=== PATIENT | female | born 1995 | race Caucasian/White ===

== ENCOUNTER 2016-06-06 21:26 | Emergency (ER) | payer OTHER ==
[~2016-06-06] VITALS: Ht 172.7 cm; Wt 128.1 kg
[~2016-06-06 21:26] MED LIST: BUPR100T13 PO; GABA-113 PO; LEVO50TA PO; PRAZ1CAP28 PO; TOPI50TA24 PO; TRAZ100T29 PO
[2016-06-06] MEDS ORDERED: GLC/500 PO (21:33)
[2016-06-06 21:35] VITALS: TEMP 36.4; Ht 172.7 cm; Wt 128.1 kg
[2016-06-06] MEDS ORDERED: CITA20TA4 PO (22:01)
[2016-06-06] MEDS ORDERED: ALBUT/IPRATROP 3MG/0.5MG NEB 3 ML VIAL ONE (22:23)
--- NOTE | 2016-06-06 22:23 | EMERGENCY ROOM VISIT NOTE ---
History Report prepared by Km: Kita Hodges Under the Supervision of: Dr. Leo Vicente M.D. First contact with patient: 21:39 Chief Complaint: RESPIRATORY PROBLEMS Stated Complaint: HAVING PROBLEMS BREATHING, CHEST PAIN History of Present Illness The patient is a 20 year old female who presents to the Emergency Room with complaints of worsening respiratory problems for the past 2 weeks. She notes rhinorrhea, productive cough, and shortness of breath. Initially her dyspnea was worse with exertion, but she states for the past 3 days she has had dyspnea even at rest. Sitting up helps to alleviate her symptoms. Earlier today the patient had a sudden onset of chest pain. She describes it as feeling as though someone is sitting on her chest. She denies this pain radiating into her back. She has never experienced symptoms like this before. She rates her pain as a 10/ 10. The patient denies fever, urinary symptoms, abdominal pain, and leg pain or swelling. She has a personal history of asthma and is a 1 pack a day smoker. She uses an albuterol inhaler daily for her asthma but has been using it more since her symptoms developed. Source of History: patient Onset: 2 weeks ago Position: chest (respiratory) Symptom Intensity: 10/10 Quality: other (dyspnea) Timing: worsening Modifying Factors (Worsening): exertion Modifying Factors (Relieving): other (sitting up) Associated Symptoms: + SOB, + chest pain, + cough, No abdominal pain, No fevers, No urinary symptoms Review of Systems See HPI for pertinent positives & negatives. A total of 10 systems reviewed and were otherwise negative. Past Medical & Surgical Medical Problems: (1) Anxiety State Nos (2) Attn Deficit W Hyperact (3) Diab Lucinda Wo Compl, Type Ii Or Unspec Type, Not Uncntrld (4) Tobacco Use Disorder Surgical Problems: (1) No significant past surgical history Family History Diabetes mellitus Social History Smoking Status: Current Every Day Smoker Alcohol Use: none Drug Use: other Marital Status: in relationship Occupation Status: unemployed Current/Historical Medications Scheduled Bupropion Hcl (Wellbutrin), 100 MG PO QAM Citalopram Hydrobromide (Citalopram Hydrobromide), 20 MG PO QD@1200 Gabapentin (Neurontin), 300 MG PO TID Levothyroxine Sodium (Synthroid), 50 MCG PO DAILY Metformin Hcl (Glucophage), 500 MG PO TID Montelukast Sodium (Singulair), 10 MG PO DAILY Prazosin Hcl (Prazosin), 1 MG PO HS Prednisone (Prednisone Tab), 2 TAB PO DAILY Topiramate (Topamax), 50 MG PO BID Scheduled PRN Albuterol Hfa (Ventolin Hfa), 2 PUFFS INH QID PRN for Asthma Symptoms Fluticasone Propionate (Nasal) (Flonase Allergy Relief), 2 SPRAYS NATALIE DAILY PRN for Allergy Symptoms Loratadine (Allergy Relief), 10 MG PO DAILY PRN for Allergy Symptoms Trazodone Hcl (Trazodone), 100 MG PO HS PRN for Sleep Allergies Coded Allergies: Aspirin (Unverified Allergy, Unknown, HIVES, 05/18/16) BEE STING (Verified Allergy, Unknown, unknown, 05/18/16) [place] (Verified Allergy, Unknown, HIVES, 05/18/16) Lactose (Unverified Allergy, Unknown, ., 05/18/16) Physical Exam Vital Signs Date Time Temp Pulse Resp B/P Pulse Ox O2 Delivery O2 Flow Rate FiO2 06/07/16 00:19 105 18 135/92 98 06/06/16 22:38 96 Room Air 06/06/16 21:35 36.4 114 20 159/91 97 Room Air Physical Exam GENERAL: Patient is in no acute distress. HEENT: No acute trauma, normocephalic atraumatic, mucous membranes moist, no nasal congestion, no scleral icterus. NECK: No stridor, no adenopathy, no meningismus, trachea is midline. LUNGS: Scattered occasional crackles, no wheezing, breath sounds somewhat diminished but equal bilaterally. CHEST: Tender over the midsternum. HEART: Without murmurs gallops or rubs, regular rate and rhythm. ABDOMEN: Soft, nontender, bowel sounds positive, no hernias, no peritonitis. EXTREMITIES: No cyanosis or edema, full range of motion of all the joints without pain or difficulty, no signs for acute trauma. NEUROLOGIC: Oriented x 3, no acute motor or sensory deficits, no focal weakness. SKIN: No rash, no jaundice, no diaphoresis. Medical Decision & Procedures ER Provider Diagnostic Interpretation: Radiology results as stated below per my review and radiologist interpretation: CHEST ONE VIEW PORTABLE CLINICAL HISTORY: 2 week productive cough, dyspnea, chest pain COMPARISON STUDY: Chest radiograph March 04, 2016. FINDINGS: Lung volumes are normal. Lungs are clear. There is no pneumothorax or pleural effusion. Cardiac size is normal. Mediastinal contours are normal. There is no evidence of pulmonary edema. The appearance of the chest is unchanged. IMPRESSION: No acute cardiopulmonary findings. Electronically signed by: Morgan Doyle M.D. 06/06/2016 10:31 PM Dictated Date/Time: 06/06/2016 10:31 PM Laboratory Results 06/06/16 22:22 Red Blood Count 4.59, Mean Corpuscular Volume 85.0, Mean Corpuscular Hemoglobin 29.6, Mean Corpuscular Hemoglobin Concent 34.9, Mean Platelet Volume 9.1, Neutrophils (%) (Auto) 65.3, Lymphocytes (%) (Auto) 28.1, Monocytes (%) (Auto) 3.6, Eosinophils (%) (Auto) 2.3, Basophils (%) (Auto) 0.3, Neutrophils # (Auto) 7.13, Lymphocytes # (Auto) 3.06, Monocytes # (Auto) 0.39, Eosinophils # (Auto) 0.25, Basophils # (Auto) 0.03 06/06/16 22:22 Test 06/06/16 22:22 06/06/16 22:35 White Blood Count 10.90 K/uL (4.8-10.8) Red Blood Count 4.59 M/uL (4.2-5.4) Hemoglobin 13.6 g/dL (12.0-16.0) Hematocrit 39.0 % (37-47) Mean Corpuscular Volume 85.0 fL (80-100) Mean Corpuscular Hemoglobin 29.6 pg (25-34) Mean Corpuscular Hemoglobin Concent 34.9 g/dl (32-36) Platelet Count 320 K/uL (130-400) Mean Platelet Volume 9.1 fL (7.4-10.4) Neutrophils (%) (Auto) 65.3 % Lymphocytes (%) (Auto) 28.1 % Monocytes (%) (Auto) 3.6 % Eosinophils (%) (Auto) 2.3 % Basophils (%) (Auto) 0.3 % Neutrophils # (Auto) 7.13 K/uL (1.4-6.5) Lymphocytes # (Auto) 3.06 K/uL (1.2-3.4) Monocytes # (Auto) 0.39 K/uL (0.11-0.59) Eosinophils # (Auto) 0.25 K/uL (0-0.5) Basophils # (Auto) 0.03 K/uL (0-0.2) RDW Standard Deviation 40.0 fL (36.4-46.3) RDW Coefficient of Variation 12.9 % (11.5-14.5) Immature Granulocyte % (Auto) 0.4 % Immature Granulocyte # (Auto) 0.04 K/uL (0.00-0.02) Anion Gap 10.0 mmol/L (3-11) Est Creatinine Clear Calc Drug Dose 130.0 ml/min Estimated GFR () 97.3 Estimated GFR (Non- 83.9 BUN/Creatinine Ratio 17.6 (10-20) Calcium Level 9.1 mg/dl (8.5-10.1) Total Bilirubin 0.1 mg/dl (0.2-1) Aspartate Amino Transf (AST/SGOT) 13 U/L (15-37) Alanine Aminotransferase (ALT/SGPT) 29 U/L (12-78) Alkaline Phosphatase 116 U/L (45-117) Troponin I < 0.015 ng/ml (0-0.045) Total Protein 7.8 gm/dl (6.4-8.2) Albumin 3.8 gm/dl (3.4-5.0) Globulin 4.0 gm/dl (2.5-4.0) Albumin/Globulin Ratio 1.0 (0.9-2) Influenza Type A Antigen Neg for Influ A (NEG) Influenza Type B Antigen Neg for Influ B (NEG) Laboratory results reviewed by me. Medications Administered Medications (Trade) Dose Ordered Sig/Darnell Route Start Time Stop Time Status Last Admin Dose Admin Albuterol/ Ipratropium (Duoneb) 3 ml STK-MED ONCE .ROUTE 06/06/16 22:23 06/06/16 22:24 DC 06/06/16 22:25 3 ML Acetaminophen (Tylenol Tab) 650 mg STK-MED ONCE .ROUTE 06/06/16 22:48 06/06/16 22:49 DC 06/06/16 22:50 650 MG Ondansetron HCl (Zofran Inj) 4 mg STK-MED ONCE .ROUTE 06/06/16 22:48 06/06/16 22:49 DC 06/06/16 22:48 4 MG Prednisone (PredniSONE TAB) 40 mg STK-MED ONCE .ROUTE 06/07/16 00:10 06/07/16 00:11 DC 06/07/16 00:13 40 MG ECG Indication: chest pain Rate (beats per minute): 99 Rhythm: normal sinus Findings: no acute ischemic change, no ectopy ED Course 2138: The patient was evaluated in room B3B. A complete history and physical exam was performed. 2223: Duoneb 3ml INH 2248: Zofran 4 mg PO, Tylenol tab 650 mg PO 2356: Prednisone 40 mg PO 2357: I reassessed the patient at this time. She is feeling better and resting comfortably. I discussed the results and treatment plan with the patient. I answered all pertaining questions that she had. She expressed understanding and verbalized agreement. The patient will be discharged home. Medical Decision Differential diagnoses includes bronchitis, pneumonia, pneumothorax, musculoskeletal pain, OK, PE, aortic dissection. There is a very mild leukocytosis, this could be consistent with infection or just her pain. No significant electrolyte abnormality requiring correction. There is no renal failure. No hepatitis. No worrisome anemia. EKG shows a normal sinus rhythm, no acute ischemia. Cardiac enzyme testing times one is not suggestive of acute cardiac injury. Chest x-ray shows no mediastinal widening, pneumonia or pneumothorax. Patient received oral Tylenol. She received a DuoNeb, oral prednisone. She received a dose of Zofran. The patient is not toxic or hypoxic. She appears to have an acute bronchitis with an exacerbation of her asthma. Her pain across the chest is reproducible and likely musculoskeletal. She is being discharged on a prednisone burst, frequent albuterol use, rest, heat to the chest wall was suggested. If things are worsening, she can return. Impression Primary Impression: Acute bronchitis Additional Impressions: Exacerbation of asthma, Precordial chest pain Scribe Attestation The scribe's documentation has been prepared under my direction and personally reviewed by me in its entirety. I confirm that the note above accurately reflects all work, treatment, procedures, and medical decision making performed by me. Departure Information Dispostion Home / Self-Care Prescriptions Prednisone (Prednisone Tab) 20 Mg Tab 2 TAB PO DAILY for 4 Days, #8 TAB Prov: Lucho, Sadie., MD 06/07/16 Referrals Tj Draper M.D. (PCP) Forms HOME CARE DOCUMENTATION FORM, IMPORTANT VISIT INFORMATION, WORK / SCHOOL INSTRUCTIONS Patient Instructions A Signature Page, ED Bronchitis Asthmatic Ch, [facility] Additional Instructions You were seen in the ED today for shortness of breath and chest pain. Lab work done was grossly unremarkable. Swabs for influenza were negative. And chest xray was normal. It is likely your symptoms are due to bronchitis. Upon discharge you are prescribed a 5 day course of prednisone 40mg. Please complete this course, even if symptoms improve. Take 2 puffs of your albuterol inhaler every 4 hours, as needed. Apply warm compresses to the chest for relief of muscular pain. A humidifer may also be helpful. We hope that this may provide significant symptom alleviation. However, we recommend follow up with your PCP in 7-10days. If symptoms continue to persist at this time, and antibioitic regimen may be considered. You have been examined and treated today on an emergency basis only. This is not a substitute for, or an effort to provide, complete comprehensive medical care. It is impossible to recognize and treat all injuries or illnesses in a single emergency department visit. It is therefore important that you make a follow up with your physician for close monitoring. Return to the ER immediately for worsening or persistent dizziness, vomiting, headache, fevers, chest pains, difficulty breathing, black or bloody stools, slurred speech, numbness, weakness, visual changes, worsening of your condition , or as needed.
[2016-06-06 22:32] LABS: BASO % 0.3 %; BASO ABS # 0.03 K/uL (0-0.2); COMPLETE YES; EOS % 2.3 %; IG% 0.4 %; LYMPH % 28.1 %; LYMPH ABS # 3.06 K/uL (1.2-3.4); MEAN CORPUSCULAR HEMOGLOBIN 29.6 pg (25-34); MEAN CORPUSCULAR HGB CONC 34.9 g/dl (32-36); MEAN PLATELET VOLUME 9.1 fL (7.4-10.4); MONO % 3.6 %; NEUT % 65.3 %; PLATELET COUNT 320 K/uL (130-400); RED BLOOD COUNT 4.59 M/uL (4.2-5.4)
--- NOTE | 2016-06-06 22:33 | DIAGNOSTIC IMAGING REPORT ---
CHEST ONE VIEW PORTABLE CLINICAL HISTORY: 2 week productive cough, dyspnea, chest pain COMPARISON STUDY: Chest radiograph March 04, 2016. FINDINGS: Lung volumes are normal. Lungs are clear. There is no pneumothorax or pleural effusion. Cardiac size is normal. Mediastinal contours are normal. There is no evidence of pulmonary edema. The appearance of the chest is unchanged. IMPRESSION: No acute cardiopulmonary findings. Electronically signed by: Morgan Doyle M.D. 06/06/2016 10:31 PM Dictated Date/Time: 06/06/2016 10:31 PM
[2016-06-06] MEDS ORDERED: VNTHFA/IN INH (22:36)
[2016-06-06] MEDS ORDERED: FLUT0.15 NAE (22:37)
--- NOTE | 2016-06-06 22:37 | EMERGENCY ROOM VISIT NOTE ---
History First contact with patient: 21:39 Chief Complaint: RESPIRATORY PROBLEMS Stated Complaint: HAVING PROBLEMS BREATHING, CHEST PAIN History of Present Illness The patient is a 20 year old female who presents to the Emergency Room with complaints of new onset chest pain Patient has had rhinorrhea, cough productive of green sputum (occasionally blood -speckled after coughing) and diarrhea without blood x two weeks duration. As of Thursday, patient has begun to feel progressively worsening dyspnea, even at rest. Exacerbated by walking. Patient also describes PND and orthopnea requiring the use of three pillows, which started a few nights ago. As of this evening, patient has begun to experience central chest pain, that feels like someone is sitting on her chest. Pain commenced while outside smoking. The pain is intermittent, but currently present. She denies radiation to the neck, jaw, or arm. Not pleuritic in nature. Symptoms alleviated by sitting up. Associated with nausea but not diaphoresis. No medications taken for relief. Patient denies previous similar episodes. No fevers Had an episode of emesis earlier today, prior to chest pain starting. but no abdominal pain. Denies UTI symptoms History of asthma - regular use of inhaler PRN Smoker - Smokes 1 pack a day No personal/family history of cardiac. ?mom has something on her heart Review of Systems See HPI for pertinent positives and negatives. A total of ten systems were reviewed and were otherwise negative. Past Medical/Surgical History Medical Problems: (1) Anxiety State Nos (2) Attn Deficit W Hyperact (3) Diab Lucinda Wo Compl, Type Ii Or Unspec Type, Not Uncntrld (4) Tobacco Use Disorder Surgical Problems: (1) No significant past surgical history Family History Diabetes mellitus Social History Smoking Status: Current Every Day Smoker Alcohol Use: none Drug Use: other Marital Status: in relationship Occupation Status: unemployed Current/Historical Medications Scheduled Bupropion Hcl (Wellbutrin), 100 MG PO QAM Citalopram Hydrobromide (Citalopram Hydrobromide), 20 MG PO QD@1200 Gabapentin (Neurontin), 300 MG PO TID Levothyroxine Sodium (Synthroid), 50 MCG PO DAILY Metformin Hcl (Glucophage), 500 MG PO TID Montelukast Sodium (Singulair), 10 MG PO DAILY Prazosin Hcl (Prazosin), 1 MG PO HS Prednisone (Prednisone Tab), 2 TAB PO DAILY Topiramate (Topamax), 50 MG PO BID Scheduled PRN Albuterol Hfa (Ventolin Hfa), 2 PUFFS INH QID PRN for Asthma Symptoms Fluticasone Propionate (Nasal) (Flonase Allergy Relief), 2 SPRAYS NATALIE DAILY PRN for Allergy Symptoms Loratadine (Allergy Relief), 10 MG PO DAILY PRN for Allergy Symptoms Trazodone Hcl (Trazodone), 100 MG PO HS PRN for Sleep Allergies Coded Allergies: Aspirin (Unverified Allergy, Unknown, HIVES, 05/18/16) BEE STING (Verified Allergy, Unknown, unknown, 05/18/16) [place] (Verified Allergy, Unknown, HIVES, 05/18/16) Lactose (Unverified Allergy, Unknown, ., 05/18/16) Physical Exam Vital Signs Date Time Temp Pulse Resp B/P Pulse Ox O2 Delivery O2 Flow Rate FiO2 06/06/16 22:38 96 Room Air 06/06/16 21:35 36.4 114 20 159/91 97 Room Air Physical Exam GENERAL: alert, well nourished, sitting in bed, mild distress, non-toxic HEAD: Normocephalic, atraumatic. No sinus tenderness. EYES: PERRL, EOMI, normal conjunctiva OROPHARYNX: no exudate, no erythema, lips, buccal mucosa, and tongue normal and mucous membranes are dry NECK: supple, no nuchal rigidity, right cervical lymph node palpable, non-tender LUNGS: Clear to auscultation. Normal chest wall mechanics, decreased bibasilar air entry. No crepitations, crackles, or wheezes HEART: no murmurs, S1 normal and S2 normal CHEST: Reproducible tenderness on palpation of sternum. Not reproduced with movement of left shoulder. ABDOMEN: abdomen soft, non-tender, normo-active bowel sounds, no masses, no rebound or guarding. BACK: Back is symmetrical on inspection, no deformities, no midline tenderness, no CVA tenderness. SKIN: Warm, pink, dry. No erythema, rashes, or bruising. EXTREMITIES: Grossly normal. Moving all 4 limbs, strength 5/5. No pitting edema. Calves non tender. NEURO: Alert, Ox3. No focal deficits. Normal sensorium, cranial nerves II-XII grossly intact, normal speech. PSYCH: Mood and affect appropriate. Medical Decision & Procedures ER Provider Diagnostic Interpretation: CHEST ONE VIEW PORTABLE CLINICAL HISTORY: 2 week productive cough, dyspnea, chest pain COMPARISON STUDY: Chest radiograph March 04, 2016. FINDINGS: Lung volumes are normal. Lungs are clear. There is no pneumothorax or pleural effusion. Cardiac size is normal. Mediastinal contours are normal. There is no evidence of pulmonary edema. The appearance of the chest is unchanged. IMPRESSION: No acute cardiopulmonary findings. Laboratory Results 06/06/16 22:22 Red Blood Count 4.59, Mean Corpuscular Volume 85.0, Mean Corpuscular Hemoglobin 29.6, Mean Corpuscular Hemoglobin Concent 34.9, Mean Platelet Volume 9.1, Neutrophils (%) (Auto) 65.3, Lymphocytes (%) (Auto) 28.1, Monocytes (%) (Auto) 3.6, Eosinophils (%) (Auto) 2.3, Basophils (%) (Auto) 0.3, Neutrophils # (Auto) 7.13, Lymphocytes # (Auto) 3.06, Monocytes # (Auto) 0.39, Eosinophils # (Auto) 0.25, Basophils # (Auto) 0.03 06/06/16 22:22 Test 06/06/16 22:22 06/06/16 22:35 White Blood Count 10.90 K/uL (4.8-10.8) Red Blood Count 4.59 M/uL (4.2-5.4) Hemoglobin 13.6 g/dL (12.0-16.0) Hematocrit 39.0 % (37-47) Mean Corpuscular Volume 85.0 fL (80-100) Mean Corpuscular Hemoglobin 29.6 pg (25-34) Mean Corpuscular Hemoglobin Concent 34.9 g/dl (32-36) Platelet Count 320 K/uL (130-400) Mean Platelet Volume 9.1 fL (7.4-10.4) Neutrophils (%) (Auto) 65.3 % Lymphocytes (%) (Auto) 28.1 % Monocytes (%) (Auto) 3.6 % Eosinophils (%) (Auto) 2.3 % Basophils (%) (Auto) 0.3 % Neutrophils # (Auto) 7.13 K/uL (1.4-6.5) Lymphocytes # (Auto) 3.06 K/uL (1.2-3.4) Monocytes # (Auto) 0.39 K/uL (0.11-0.59) Eosinophils # (Auto) 0.25 K/uL (0-0.5) Basophils # (Auto) 0.03 K/uL (0-0.2) RDW Standard Deviation 40.0 fL (36.4-46.3) RDW Coefficient of Variation 12.9 % (11.5-14.5) Immature Granulocyte % (Auto) 0.4 % Immature Granulocyte # (Auto) 0.04 K/uL (0.00-0.02) Anion Gap 10.0 mmol/L (3-11) Est Creatinine Clear Calc Drug Dose 130.0 ml/min Estimated GFR () 97.3 Estimated GFR (Non- 83.9 BUN/Creatinine Ratio 17.6 (10-20) Calcium Level 9.1 mg/dl (8.5-10.1) Total Bilirubin 0.1 mg/dl (0.2-1) Aspartate Amino Transf (AST/SGOT) 13 U/L (15-37) Alanine Aminotransferase (ALT/SGPT) 29 U/L (12-78) Alkaline Phosphatase 116 U/L (45-117) Troponin I < 0.015 ng/ml (0-0.045) Total Protein 7.8 gm/dl (6.4-8.2) Albumin 3.8 gm/dl (3.4-5.0) Globulin 4.0 gm/dl (2.5-4.0) Albumin/Globulin Ratio 1.0 (0.9-2) Influenza Type A Antigen Neg for Influ A (NEG) Influenza Type B Antigen Neg for Influ B (NEG) Medications Administered Medications (Trade) Dose Ordered Sig/Darnell Route Start Time Stop Time Status Last Admin Dose Admin Albuterol/ Ipratropium (Duoneb) 3 ml STK-MED ONCE .ROUTE 06/06/16 22:23 06/06/16 22:24 DC 06/06/16 22:25 3 ML Acetaminophen (Tylenol Tab) 650 mg STK-MED ONCE .ROUTE 06/06/16 22:48 06/06/16 22:49 DC 06/06/16 22:50 650 MG Ondansetron HCl (Zofran Inj) 4 mg STK-MED ONCE .ROUTE 06/06/16 22:48 06/06/16 22:49 DC 06/06/16 22:48 4 MG ECG Indication: chest pain, SOB/dyspnea Rate (beats per minute): 99 Rhythm: normal sinus Findings: no acute ischemic change, no ectopy, other (RSR pattern in V1 and V2) Medical Decision 20 year old female presented with chest pain, dyspnea The patient was evaluated in room B3. A complete history and physical exam was performed. Differential diagnoses includes but is not limited to acute coronary syndrome, myocardial infarction, pericarditis, pulmonary embolus, aortic dissection, pneumonia, pneumothorax, musculoskeletal, shingles, esophageal, bronchitis, COPD /Asthma exacerbation, congestive heart failure Patient was given 650mg PO Tylenol and 4mg IV Zofran for symptom relief. Additionally, Duo Nebs were given to improve respiratory status. EKG showed NSR without ischemic changes Lab work was performed. CBC showed borderline leukocytosis, BMP, LFT, and troponin were all within normal limits. Nasopharyngeal swabs were negative for influenza. CXR reported no acute cardiopulmonary findings. Likely diagnosis is bronchitis with musculoskeletal chest pain secondary to coughing. As such, patient prescribed a 5 day course of 40mg PO prednisone and advised for conservative management with warm compress to the chest and room humidifier. She was also told to continue her albuterol inhaler 2 puffs q 4 hours as needed, technique was reinforced. Finally, it was recommended that she follow up with her PCP in 7-10 days, and if symptoms persisted, an antibiotics regimen might be considered at that time. Patient understands and agreeable with care plan. Patient discharged home well. Impression Primary Impression: Bronchitis Additional Impression: Musculoskeletal chest pain Departure Information Dispostion Home / Self-Care Condition GOOD Prescriptions Prednisone (Prednisone Tab) 20 Mg Tab 2 TAB PO DAILY for 4 Days, #8 TAB Prov: Alka. Yepez MD 06/07/16 Referrals Tj Draper M.D. (PCP) Patient Instructions A Signature Page, [facility] Additional Instructions You were seen in the ED today for shortness of breath and chest pain. Lab work done was grossly unremarkable. Swabs for influenza were negative. And chest xray was normal. It is likely your symptoms are due to bronchitis. Upon discharge you are prescribed a 5 day course of prednisone 40mg. Please complete this course, even if symptoms improve. Take 2 puffs of your albuterol inhaler every 4 hours, as needed. Apply warm compresses to the chest for relief of muscular pain. A humidifer may also be helpful. We hope that this may provide significant symptom alleviation. However, we recommend follow up with your PCP in 7-10days. If symptoms continue to persist at this time, and antibioitic regimen may be considered. You have been examined and treated today on an emergency basis only. This is not a substitute for, or an effort to provide, complete comprehensive medical care. It is impossible to recognize and treat all injuries or illnesses in a single emergency department visit. It is therefore important that you make a follow up with your physician for close monitoring. Return to the ER immediately for worsening or persistent dizziness, vomiting, headache, fevers, chest pains, difficulty breathing, black or bloody stools, slurred speech, numbness, weakness, visual changes, worsening of your condition , or as needed.
[2016-06-06] MEDS ORDERED: MONT1TAB3 PO (22:38)
[2016-06-06] MEDS ORDERED: LORA-554 PO (22:39)
[2016-06-06] MEDS ORDERED: ACETAMINOPHEN 325 MG TAB PO STA (22:43)
[2016-06-06] MEDS ORDERED: ONDANSETRON INJ 2 MG/ML 2 ML VIAL IV STA (22:43)
[2016-06-06] MEDS ORDERED: ACETAMINOPHEN 325 MG TAB ONE (22:48)
[2016-06-06] MEDS ORDERED: ONDANSETRON INJ 2 MG/ML 2 ML VIAL ONE (22:48)
[2016-06-06 22:53] LABS: ALT/SGPT 29 U/L (12-78); AST/SGOT 13 U/L (15-37); BLOOD UREA NITROGEN 17 mg/dl (7-18); BUN/CREATININE RATIO 17.6 (10-20); CALCIUM 9.1 mg/dl (8.5-10.1); CARBON DIOXIDE 23 mmol/L (21-32); CHLORIDE 108 mmol/L (98-107); CREATININE 0.96 mg/dl (0.60-1.20); GLUCOSE 110 mg/dl (70-99); POTASSIUM 3.9 mmol/L (3.5-5.1); SODIUM 141 mmol/L (136-145)
[2016-06-06 22:57] LABS: ALKALINE PHOSPHATASE 116 U/L (45-117)
[2016-06-07] MEDS ORDERED: PRED20TA2 PO (00:07)
[2016-06-07 00:19] VITALS: BP 135/92; PULSE 105; O2SAT 98
[2016-06-07] MEDS ORDERED: ALBUT/IPRATROP 3MG/0.5MG NEB 3 ML VIAL INH SCH (08:00)
== END 2016-06-07 00:22 | disposition home or self-care (01) ==
LOC: C.EDB 21:33
DX: J20.9 Acute bronchitis, unspecified (principal); R07.89 Other chest pain; J45.901 Unspecified asthma with (acute) exacerbation; F41.9 Anxiety disorder, unspecified; E11.9 Type 2 diabetes mellitus without complications; F17.200 Nicotine dependence, unspecified, uncomplicated; Z83.3 Family history of diabetes mellitus

== ENCOUNTER 2016-06-20 17:49 | Emergency (ER) | payer OTHER ==
[~2016-06-20] VITALS: Ht 172.7 cm; Wt 124.4 kg
[~2016-06-20 17:49] MED LIST changes: +CITA20TA4 PO; +FLUT0.15 NAE; +GLC/500 PO; +LORA-554 PO; +MONT1TAB3 PO; +VNTHFA/IN INH
[2016-06-20 18:04] VITALS: TEMP 36.6; Ht 172.7 cm; Wt 124.4 kg
--- NOTE | 2016-06-20 18:38 | EMERGENCY ROOM VISIT NOTE ---
ED Visit Note First contact with patient: 18:08 CHIEF COMPLAINT: Foot pain HISTORY OF PRESENT ILLNESS: This 20 year old female patient presents to the emergency department ambulatory complaining of swelling and pain in the left foot at rest and worse with weight bearing. The patient rates the pain as sharp and 10/10. The patient has no relief of the pain. The patient is non-able to walk. No numbness or weakness. No ankle pain. There are no lacerations of the foot. The patient is able to move all of their toes and their ankle without pain. Patient denies previous injury to this foot. REVIEW OF SYSTEMS: GENERAL: A 6 system review of systems was completed with positives and pertinent negatives in the HPI. ALLERGIES: Aspirin, bee stings, citrus, lactose MEDICATIONS: See nursing notes PMH: Diabetes, hypothyroidism, bipolar SOCIAL HISTORY: The patient lives locally and is a smoker PHYSICAL EXAM: Vital Signs: Reviewed Nurse's notes, vital signs stable. GENERAL : This is a 20 year old female, in no acute distress, but appears in pain, well- developed, well-nourished. MUSCULOSKELETAL: There is no visual deformity of the left foot. There is no erythema and mild ecchymosis. There is no warmth. There is tenderness and swelling over the lateral aspect of the left foot. The range of motion of the foot is mildly limited secondary to pain. There is no tenderness over the plantar fascia. Dorsi flexion 5/5 and Plantar flexion 5/5. The skin is intact and there are no lacerations or puncture wounds. Dorsalis pedis pulse 2+. Capillary refill less than 2 seconds. EMERGENCY DEPARTMENT COURSE: I examined the patient. An X-ray of the left ankle and foot were reviewed by myself and radiology and reveals no fracture dislocation. The patient was placed in a post-op shoe and instructed on the use of crutches. The patient was discharged home in good condition. DIAGNOSIS: Foot pain TREATMENT: Ice and elevation for 24-48 hrs. Tylenol 1000 mg every 6 hours for the pain. No more than 4 g of Tylenol in 24 hours. Avoid weight bearing and use crutches and post-op shoe until the pain subsides and you can walk without a limp. Follow up with family doctor or orthopedic surgeon if symptoms persist in 5-7 days. LEFT ANKLE MIN 3 VIEWS ROUTINE CLINICAL HISTORY: Left ankle pain status post trauma COMPARISON: None. DISCUSSION: No fractures or dislocations are visualized. The ankle mortise appears intact. IMPRESSION: No fractures or dislocations identified. LEFT FOOT MIN 3 VIEWS ROUTINE CLINICAL HISTORY: Left foot pain status post trauma COMPARISON: None. DISCUSSION: No fractures or dislocations are visualized. There is a small corticated ossicle at the level of the navicular as visualized in the lateral view. This is felt to be old. IMPRESSION: No fractures or dislocations identified. Problem List Surgical Problems: (1) No significant past surgical history Status: Resolved Current/Historical Medications Scheduled Bupropion Hcl (Wellbutrin), 100 MG PO QAM Citalopram Hydrobromide (Citalopram Hydrobromide), 20 MG PO QD@1200 Gabapentin (Neurontin), 300 MG PO TID Levothyroxine Sodium (Synthroid), 50 MCG PO DAILY Metformin Hcl (Glucophage), 500 MG PO TID Montelukast Sodium (Singulair), 10 MG PO DAILY Prazosin Hcl (Prazosin), 1 MG PO HS Topiramate (Topamax), 50 MG PO BID Scheduled PRN Albuterol Hfa (Ventolin Hfa), 2 PUFFS INH QID PRN for Asthma Symptoms Fluticasone Propionate (Nasal) (Flonase Allergy Relief), 2 SPRAYS NATALIE DAILY PRN for Allergy Symptoms Loratadine (Allergy Relief), 10 MG PO DAILY PRN for Allergy Symptoms Trazodone Hcl (Trazodone), 100 MG PO HS PRN for Sleep Allergies Coded Allergies: Aspirin (Unverified Allergy, Unknown, HIVES, 06/20/16) BEE STING (Verified Allergy, Unknown, unknown, 06/20/16) [place] (Verified Allergy, Unknown, HIVES, 06/20/16) Lactose (Unverified Allergy, Unknown, ., 06/20/16) Vital Signs Date Time Temp Pulse Resp B/P Pulse Ox O2 Delivery O2 Flow Rate FiO2 06/20/16 19:16 101 20 149/93 96 06/20/16 18:04 36.6 104 20 146/101 98 Room Air Medications Administered Medications (Trade) Dose Ordered Sig/Darnell Route Start Time Stop Time Status Last Admin Dose Admin Acetaminophen (Tylenol Tab) 1,000 mg NOW STAT PO 06/20/16 18:51 06/20/16 18:52 DC 06/20/16 18:51 1,000 MG Departure Information Impression Primary Impression: Foot sprain Dispostion Home / Self-Care Condition GOOD Referrals Tj Draper M.D. (PCP) Ashok Junior MD Patient Instructions ED Sprain Foot, My [facility] Additional Instructions Ice and elevation for 24-48 hrs. Tylenol 1000 mg every 6 hours for the pain. No more than 4 g of Tylenol in 24 hours. Avoid weight bearing and use crutches and post-op shoe until the pain subsides and you can walk without a limp. Follow up with family doctor or orthopedic surgeon if symptoms persist in 5-7 days. Problem Qualifiers Primary Impression: Foot sprain Encounter type: initial encounter Laterality: left Qualified Codes: S93.602A - Unspecified sprain of left foot, initial encounter
--- NOTE | 2016-06-20 18:46 | DIAGNOSTIC IMAGING REPORT ---
LEFT ANKLE MIN 3 VIEWS ROUTINE CLINICAL HISTORY: Left ankle pain status post trauma COMPARISON: None. DISCUSSION: No fractures or dislocations are visualized. The ankle mortise appears intact. IMPRESSION: No fractures or dislocations identified. Electronically signed by: Thomas Romeo M.D. 06/20/2016 6:44 PM Dictated Date/Time: 06/20/2016 6:43 PM
--- NOTE | 2016-06-20 18:46 | DIAGNOSTIC IMAGING REPORT ---
LEFT FOOT MIN 3 VIEWS ROUTINE CLINICAL HISTORY: Left foot pain status post trauma COMPARISON: None. DISCUSSION: No fractures or dislocations are visualized. There is a small corticated ossicle at the level of the navicular as visualized in the lateral view. This is felt to be old. IMPRESSION: No fractures or dislocations identified. Electronically signed by: Thomas Romeo M.D. 06/20/2016 6:45 PM Dictated Date/Time: 06/20/2016 6:44 PM
[2016-06-20] MEDS ORDERED: ACETAMINOPHEN 500 MG TAB PO STA (18:51)
[2016-06-20 19:16] VITALS: BP 149/93; PULSE 101; O2SAT 96
== END 2016-06-20 19:18 | disposition home or self-care (01) ==
LOC: C.EDB 17:51 → C.EDD 19:18
DX: S93.602A Unspecified sprain of left foot, initial encounter (principal); X58.XXXA Exposure to other specified factors, initial encounter; E11.9 Type 2 diabetes mellitus without complications; E03.9 Hypothyroidism, unspecified

== ENCOUNTER 2016-10-25 21:03 | Emergency (ER) | payer OTHER ==
[~2016-10-25] VITALS: Ht 172.7 cm; Wt 130.0 kg
[2016-10-25 21:14] VITALS: BP 142/89; PULSE 118; TEMP 37; O2SAT 97; Ht 172.7 cm; Wt 130.0 kg
--- NOTE | 2016-10-25 22:11 | DIAGNOSTIC IMAGING REPORT ---
CT SCAN OF THE BRAIN WITHOUT IV CONTRAST CLINICAL HISTORY: Fall. Headache. COMPARISON STUDY: CT of the brain dated 12/30/2013. TECHNIQUE: Unenhanced axial CT scan of the brain is performed from the vertex to the skull base. Automated dose control exposure was utilized. FINDINGS: Brain parenchyma: The brain parenchyma is normal in appearance. There is no hemorrhage, mass effect, or evidence of acute territorial ischemia by CT criteria. Albright-white matter is preserved. No extra-axial fluid collection is seen. Ventricles, sulci, cisterns: Normal in configuration. Intracranial vasculature: The visualized intracranial vasculature at the skull base is normal in appearance. Calvarium: There is no depressed calvarial fracture. Soft tissues: There is a small left occipital scalp contusion. Sinuses and mastoids: The visualized paranasal sinuses are clear. The mastoid air cells are well pneumatized. Orbits: The bony orbits are grossly intact. IMPRESSION: No acute intracranial abnormality. Electronically signed by: Leo Vides M.D. 10/25/2016 10:10 PM Dictated Date/Time: 10/25/2016 10:08 PM
--- NOTE | 2016-10-25 22:14 | DIAGNOSTIC IMAGING REPORT ---
CT SCAN OF THE CERVICAL SPINE CLINICAL HISTORY: Trauma. Fall. COMPARISON STUDY: CT scan of the cervical spine dated 12/30/2013. TECHNIQUE: CT scan of the cervical spine is performed from the skull base to the upper thoracic spine. Images are reviewed in the axial, sagittal, and coronal planes. IV contrast was not administered for this examination. CT DOSE: 1188.28 mGy.cm FINDINGS: Skeletal structures: The skeletal structures are well mineralized. There is no evidence of fracture or subluxation involving the cervical spine. Vertebral body height and alignment are maintained. There is straightening of the cervical lordosis. The odontoid process and lateral masses are intact. The atlantoaxial articulation is preserved. The spinous processes appear intact. Intervertebral discs: The disc spaces are well maintained. Central canal: Widely patent. Soft tissues: The prevertebral and paraspinous soft tissues are within normal limits. Calvarium: The visualized calvarium at the skull base appears intact. Brain parenchyma: Partially visualized brain parenchyma the skull base is within normal limits. Sinuses and mastoids: The visualized paranasal sinuses are clear. The mastoid air cells are well pneumatized. Lung apices: Clear as visualized. IMPRESSION: There is no evidence of fracture or subluxation involving the cervical spine. Electronically signed by: Leo Vides M.D. 10/25/2016 10:13 PM Dictated Date/Time: 10/25/2016 10:10 PM
[2016-10-25] MEDS ORDERED: NORCO 5/325MG HOME PACK PO ONE (23:00)
[2016-10-25] MEDS ORDERED: ONDANSETRON HOME PACK 4MG OD TAB PO ONE (23:00)
--- NOTE | 2016-10-26 00:17 | EMERGENCY ROOM VISIT NOTE ---
ED Visit Note First contact with patient: 21:48 CHIEF COMPLAINT: Head injury HISTORY OF PRESENT ILLNESS: This 21-year-old female patient presented to the emergency department after receiving a head injury earlier today. The patient states that she was walking outside when she slipped in the grass, fell, and struck the back of her head. There was no brief loss of consciousness. There has been no vomiting. The patient complains of mild headache and neck pain. The patient has taken nothing for the pain. The patient rates the pain as dull and 6/10. The patient denies bowel or bladder dysfunction. The patient denies any other injuries. REVIEW OF SYSTEMS: A review of systems was performed with positives and pertinent negatives listed in the history of present illness. All other systems were reviewed and are negative. ALLERGIES: See EMR MEDICATIONS: See EMR PMH: See EMR SOCIAL HISTORY: Lives locally PHYSICAL EXAM: Vital Signs: Reviewed Nurse's notes, vital signs stable. GENERAL : White female, in no acute distress, well-developed, well-nourished. NEURO: The patient is alert, oriented to person place and time, and coherent. Normal mini mental status exam. Negative Romberg and pronator drift. Cerebellar function intact. HEAD: Normocephalic atraumatic. EYES: Pupils are equal round and reactive to light and accommodation. EOMs are full and optic discs and fundi are normal. There is no swelling or discoloration of the tissue surrounding the eyes. EARS: External auditory canals clear without blood. NOSE : Patent without tenderness. No septal hematoma. FACE: No facial bone tenderness. NECK: Supple. There is no cervical spine tenderness. CT SCAN OF THE BRAIN WITHOUT IV CONTRAST CLINICAL HISTORY: Fall. Headache. COMPARISON STUDY: CT of the brain dated 12/30/2013. TECHNIQUE: Unenhanced axial CT scan of the brain is performed from the vertex to the skull base. Automated dose control exposure was utilized. FINDINGS: Brain parenchyma: The brain parenchyma is normal in appearance. There is no hemorrhage, mass effect, or evidence of acute territorial ischemia by CT criteria. Albright-white matter is preserved. No extra-axial fluid collection is seen. Ventricles, sulci, cisterns: Normal in configuration. Intracranial vasculature: The visualized intracranial vasculature at the skull base is normal in appearance. Calvarium: There is no depressed calvarial fracture. Soft tissues: There is a small left occipital scalp contusion. Sinuses and mastoids: The visualized paranasal sinuses are clear. The mastoid air cells are well pneumatized. Orbits: The bony orbits are grossly intact. IMPRESSION: No acute intracranial abnormality. CT SCAN OF THE CERVICAL SPINE CLINICAL HISTORY: Trauma. Fall. COMPARISON STUDY: CT scan of the cervical spine dated 12/30/2013. TECHNIQUE: CT scan of the cervical spine is performed from the skull base to the upper thoracic spine. Images are reviewed in the axial, sagittal, and coronal planes. IV contrast was not administered for this examination. CT DOSE: 1188.28 mGy.cm FINDINGS: Skeletal structures: The skeletal structures are well mineralized. There is no evidence of fracture or subluxation involving the cervical spine. Vertebral body height and alignment are maintained. There is straightening of the cervical lordosis. The odontoid process and lateral masses are intact. The atlantoaxial articulation is preserved. The spinous processes appear intact. Intervertebral discs: The disc spaces are well maintained. Central canal: Widely patent. Soft tissues: The prevertebral and paraspinous soft tissues are within normal limits. Calvarium: The visualized calvarium at the skull base appears intact. Brain parenchyma: Partially visualized brain parenchyma the skull base is within normal limits. Sinuses and mastoids: The visualized paranasal sinuses are clear. The mastoid air cells are well pneumatized. Lung apices: Clear as visualized. IMPRESSION: There is no evidence of fracture or subluxation involving the cervical spine. ED COURSE: Physical exam and history were performed. Nursing notes and EMR were reviewed. The patient appears to fall earlier today and struck the back of her head. CT scans of the head and neck were performed and do not show evidence of acute fracture or dislocation. There is no evidence of bleed. Overall the patient appears stable for discharge home and may have a mild concussion. The patient will be given a home pack of Vicodin and Zofran. She was asked to follow with her primary care physician this week for further care and management. The patient voiced understanding and rated her discomfort a 0/ 10 at the time of departure. Problem List Surgical Problems: (1) No significant past surgical history Status: Resolved Current/Historical Medications Scheduled Bupropion Hcl (Wellbutrin), 100 MG PO QAM Citalopram Hydrobromide (Citalopram Hydrobromide), 20 MG PO QD@1200 Gabapentin (Neurontin), 300 MG PO TID Levothyroxine Sodium (Synthroid), 50 MCG PO DAILY Metformin Hcl (Glucophage), 500 MG PO TID Montelukast Sodium (Singulair), 10 MG PO DAILY Prazosin Hcl (Prazosin), 1 MG PO HS Topiramate (Topamax), 50 MG PO BID Scheduled PRN Albuterol Hfa (Ventolin Hfa), 2 PUFFS INH QID PRN for Asthma Symptoms Fluticasone Propionate (Nasal) (Flonase Allergy Relief), 2 SPRAYS NATALIE DAILY PRN for Allergy Symptoms Loratadine (Allergy Relief), 10 MG PO DAILY PRN for Allergy Symptoms Trazodone Hcl (Trazodone), 100 MG PO HS PRN for Sleep Allergies Coded Allergies: Aspirin (Unverified Allergy, Unknown, HIVES, 10/25/16) BEE STING (Verified Allergy, Unknown, unknown, 10/25/16) [place] (Verified Allergy, Unknown, HIVES, 10/25/16) Lactose (Unverified Allergy, Unknown, ., 10/25/16) Vital Signs Date Time Temp Pulse Resp B/P Pulse Ox O2 Delivery O2 Flow Rate FiO2 10/25/16 21:14 37.0 118 18 142/89 97 Room Air Medications Administered Medications (Trade) Dose Ordered Sig/Darnell Route Start Time Stop Time Status Last Admin Dose Admin Acetaminophen/ Hydrocodone Bitart ([place] 5/325mg Home Pack) 1 homepack UD ONCE PO 10/25/16 23:00 10/25/16 23:01 DC 10/25/16 22:58 1 HOMEPACK Ondansetron HCl (ZOFRAN ODT 4MG Home Pack) 1 homepack UD ONCE PO 10/25/16 23:00 10/25/16 23:01 DC 10/25/16 22:58 1 HOMEPACK Departure Information Impression Primary Impression: Closed head injury Dispostion Home / Self-Care Condition GOOD Referrals Tj Draper M.D. (PCP) Forms HOME CARE DOCUMENTATION FORM, IMPORTANT VISIT INFORMATION Patient Instructions My [facility] Additional Instructions You were seen and evaluated today on an emergency basis only. This is not a substitute for, or an effort to provide, complete comprehensive medical care. It is not possible to recognize and treat all injuries or illnesses in a single emergency department visit. For this reason it is recommended that you followup with your primary care physician this week for ongoing care and evaluation. [place] (hydrocodone/acetaminophen) 5/325 mg (homepack) every 6 hours as needed for worsening breakthrough pain. Do not drink or drive on [place]. This medication will likely make you tired. Do not take [place] and Tylenol at the same time as both contain acetaminophen. [place] may cause constipation. You may wish to take an [id number] stool softener like Colace if this occurs. Zofran (homepack) 1 tablet every 6 hrs as needed for nausea. You are welcome to return to the emergency department anytime with new, worsening, or concerning symptoms.
== END 2016-10-25 23:00 | disposition home or self-care (01) ==
LOC: C.EDB 21:05 → C.EDD 23:00
DX: S09.90XA Unspecified injury of head, initial encounter (principal); W01.0XXA Fall on same level from slipping, tripping and stumbling without subsequent striking against object, initial encounter; M54.2 Cervicalgia

== ENCOUNTER 2016-11-27 20:27 | Emergency (ER) | payer OTHER ==
[~2016-11-27] VITALS: Ht 175.3 cm; Wt 130.2 kg
[2016-11-27 20:30] VITALS: Ht 175.3 cm; Wt 130.2 kg
[2016-11-27] MEDS ORDERED: PENI-82 PO (21:06)
--- NOTE | 2016-11-27 21:07 | EMERGENCY ROOM VISIT NOTE ---
ED Visit Note First contact with patient: 20:36 CHIEF COMPLAINT: Toothache HISTORY OF PRESENT ILLNESS: This 21-year-old female patient presented to the emergency department ambulatory complaining of right-sided dental pain. The patient states that she chipped one of her with teeth yesterday when she was playing with her tongue ring. She states that she has had pain in the teeth since then. She made an appointment with her dentist in 2 weeks. She is unsure if she chipped a lower or upper tooth. She has been taking over-the- counter pain medications at home. Denies facial swelling or fever. The patient denies any discharge from the mouth. REVIEW OF SYSTEMS: A 6 system review of systems was completed with positives and pertinent negatives listed in the HPI. ALLERGIES: Aspirin, bee sting, citrus, lactose MEDICATIONS: See med list PMH: Diabetes SOCIAL HISTORY: The patient lives locally with family. She is a smoker. PHYSICAL EXAM: Vitals are noted on the nurse's note and reviewed by myself. Vital signs stable. Temperature 36.6C orally. GENERAL: This is a 21-year-old female, in no acute distress, nondiaphoretic, well-developed well-nourished. Mouth: There are no obvious abnormalities of the right upper or lower teeth. There is no significant swelling of the gums or any sign of an abscess. The remainder of the pharynx and tonsils are without erythema, edema, or exudate. The airway is patent. There is no facial swelling, cervical or submandibular lymphadenopathy. The patient appears uncomfortable and in pain. The patient has overall poor dental hygiene. EARS: External auditory canals clear, tympanic membranes pearly argueta without erythema or effusion bilaterally. ED COURSE: The patient was evaluated as above. There is no evidence of a dental abscess at this time. The patient will be covered with penicillin and instructed to follow-up with her dentist. She will return for any worsening symptoms. She verbalized understanding of my assessment and treatment plan and was discharged home in good condition. Medication reconciliation: I attest that I have personally reviewed the patient 's current medication list. Blood pressure screening: Patient was found to have an elevated blood pressure and was referred to their primary care provider for recheck and further treatment. DIAGNOSIS: Odontalgia Problem List Surgical Problems: (1) No significant past surgical history Status: Resolved Current/Historical Medications Scheduled Bupropion Hcl (Wellbutrin), 100 MG PO QAM Citalopram Hydrobromide (Citalopram Hydrobromide), 20 MG PO QD@1200 Gabapentin (Neurontin), 300 MG PO TID Levothyroxine Sodium (Synthroid), 50 MCG PO DAILY Metformin Hcl (Glucophage), 500 MG PO TID Montelukast Sodium (Singulair), 10 MG PO DAILY Penicillin V Potassium (Veetids), 500 MG PO QID Prazosin Hcl (Prazosin), 1 MG PO HS Topiramate (Topamax), 50 MG PO BID Scheduled PRN Albuterol Hfa (Ventolin Hfa), 2 PUFFS INH QID PRN for Asthma Symptoms Fluticasone Propionate (Nasal) (Flonase Allergy Relief), 2 SPRAYS NATALIE DAILY PRN for Allergy Symptoms Trazodone Hcl (Trazodone), 100 MG PO HS PRN for Sleep Allergies Coded Allergies: Aspirin (Verified Allergy, Unknown, HIVES, 11/27/16) BEE STING (Verified Allergy, Unknown, unknown, 11/27/16) [place] (Verified Allergy, Unknown, HIVES, 11/27/16) Lactose (Verified Allergy, Unknown, ., 11/27/16) Vital Signs Date Time Temp Pulse Resp B/P (MAP) Pulse Ox O2 Delivery O2 Flow Rate FiO2 11/27/16 21:30 36.6 100 16 160/87 97 11/27/16 20:30 36.6 100 16 160/87 97 Room Air Laboratory Results Test 11/27/16 20:40 Urine Test NEG (NEG) Medications Administered Medications (Trade) Dose Ordered Sig/Darnell Route Start Time Stop Time Status Last Admin Dose Admin Penicillin V Potassium (Pen-Vk 500MG Home Pack) 1 homepack UD ONCE PO 11/27/16 21:15 11/27/16 21:16 DC 11/27/16 21:13 1 HOMEPACK Departure Information Impression Primary Impression: Dentalgia Dispostion Home / Self-Care Condition GOOD Prescriptions Penicillin V Potassium (Veetids) 500 Mg Tab 500 MG PO QID for 10 Days, #40 TAB Prov: Aracely Salguero ., THUY 11/27/16 Referrals Tj Draper M.D. (PCP) Patient Instructions My [facility] Additional Instructions You have been treated in the Emergency Department for Dental Pain. You were prescribed penicillin to be taken as prescribed. This is an antibiotic. All antibiotics have the potential to cause diarrhea. Stop this medication and contact a medical provider if you were to develop any significant adverse side effects including: wheezing, shortness of breath, passing out, vomiting, or a diffuse rash. Always take antibiotics as directed and COMPLETE the ENTIRE course regardless of the improvement of your symptoms. For pain control, you can use the following [id number] medicines (if >12 yo): - Regular strength (325mg/tab) Tylenol (acetaminophen) 2 tabs every 4-6 hours as needed. Do not exceed 12 tablets in a 24 hour period. Avoid taking more than 4 grams (4000 mg) of Tylenol per day. This includes any other sources of acetaminophen you may take on a regular basis. - Regular strength (200 mg/tab) Advil (ibuprofen) 1-2 tabs every 4-6 hours as needed. Do not exceed a dose of 3200 mg per day. Refrain from smoking cigarettes or using chewing tobacco until you have been evaluated by your dentist. Keeping beverages lukewarm and consuming soft foods can decrease your pain. Warm compresses over the affected area may offer some relief. You MUST seek evaluation of your dental pain by a dentist following your visit to the Emergency Department. The Emergency Department is not capable of treating dental issues long-term. You should call your dentist as soon as possible to make an appointment for evaluation of your dental pain. Return to the emergency department if you develop the following symptoms despite treatment course outlined above: fever, intractable pain, increased redness, swelling, or purulent discharge.
[2016-11-27] MEDS ORDERED: PENICILLIN HOME PACK 500MG (4 DOSES)BTL PO ONE (21:15)
[2016-11-27 21:30] VITALS: BP 160/87; PULSE 100; TEMP 36.6; O2SAT 97
== END 2016-11-27 22:10 | disposition home or self-care (01) ==
LOC: C.EDB 20:27 → C.EDD 22:10
DX: K08.89 Other specified disorders of teeth and supporting structures (principal); E11.9 Type 2 diabetes mellitus without complications; Z79.84 Long term (current) use of oral hypoglycemic drugs; Z79.899 Other long term (current) drug therapy; F17.200 Nicotine dependence, unspecified, uncomplicated

== ENCOUNTER 2017-01-08 18:35 | Emergency (ER) | payer OTHER ==
[~2017-01-08] VITALS: Ht 172.7 cm; Wt 130.6 kg
[~2017-01-08 18:35] MED LIST changes: -LORA-554 PO
[2017-01-08 18:51] VITALS: TEMP 36.7; Ht 172.7 cm; Wt 130.6 kg
[2017-01-08] MEDS ORDERED: BCTROWC EXT (19:10)
[2017-01-08] MEDS ORDERED: CEPH500C PO (19:10)
--- NOTE | 2017-01-08 19:11 | EMERGENCY ROOM VISIT NOTE ---
ED Visit Note First contact with patient: 19:00 CHIEF COMPLAINT: Bilateral breast Burn HISTORY OF PRESENT ILLNESS: This 21-year-old female patient presents to the emergency department 6 days after they sustained a burn injury to the lateral breasts. The patient states "I was baking cornbread in the oven a few days ago , and I burnt my tits". The patient states she was wearing a shirt while baking , however states she is uncertain how her breasts got burnt. The patient complains of swelling and pain over the bilateral breasts rated as 10/10. Pain is worse with movement and pressure. Sensation is still present. There is no blistering now, the patient states last week, the day after the initial injury, she did experience blistering. The patient states she has been using antibiotic ointment once daily for a week, without improvement in her symptoms. The patient does report increased redness, and pus from the wounds, which began a few days ago. No other injury sustained. Tetanus shot is up to date. REVIEW OF SYSTEMS: A 6 system review of systems was completed with positives and pertinent negatives listed in the HPI. ALLERGIES: Bee stings, aspirin, lactose, citrus MEDICATIONS: Please see list. I did personally review patient's medications with her. PMH: Diabetes, depression, anxiety, hypothyroidism, bipolar disorder, asthma, migraines SOCIAL HISTORY: Lives locally with her boyfriend. She denies drug, alcohol use. She does reports smoking one pack cigarettes per day. PHYSICAL EXAM: Vital Signs reviewed, see Nurse's notes, vital signs stable. GENERAL: This is a 21-year-old female, awake, alert, well appearing, no acute distress HEENT: Normocephalic, atraumatic. No carbonaceous sputum or singed nasal hair. Oropharynx without edema or erythema. NECK: No stridor LUNGS: Clear to ausculation. No wheezes or rales. CARDIAC: Regular rate, normal rhythm MUSCULOSKELETAL: No gross deformity. SKIN: There are several partial thickness burn wounds on the bilateral breasts. The burn is not circumferential. There is erythema and mild purulent drainage at this time. There is no sign of abscess. There is no foreign body. There is no skin sloughing. NEURO: No sensory or motor deficits noted over all dermatomes and myotomes tested. EMERGENCY DEPARTMENT COURSE AND DECISION MAKING: I examined the patient. The patient presented one week S/P bilateral breast marino from an oven. The marino do appear to be mildly infected at this time, due to erythema and drainage. I discussed proper treatment including antibiotics orally as well as topical mupirocin cream. The marino were bandaged with Telfa and bacitracin ointment in the emergency department. Discharge instructions reviewed. The patient was discharged home in stable condition. DIFFERENTIAL DIAGNOSIS: Thermal marino, cellulitis, infection, abscess, sepsis, and others. DIAGNOSIS: Bilateral thermal breast marino with infection DISCHARGE INSTRUCTIONS: You have been treated in the Emergency Department today for a burn on your breasts. You have been prescribed Bactroban (mupirocin) Ointment. This is an antibiotic ointment that will help to prevent the development of an infection at the site of your burn. After you have cleaned the burn site with soap and water and dried the area thoroughly, you should apply a layer of the ointment to the site of the burn with clean gauze or a clean tongue depressor. You should apply a dressing over the site of the burn to keep it clean from contamination. You were prescribed Keflex to be taken 4 times daily. This is an antibiotic. All antibiotics have the potential to cause diarrhea. Stop this medication and contact a medical provider if you were to develop any significant adverse side effects including: wheezing, shortness of breath, passing out, vomiting, or a diffuse rash. Always take antibiotics as directed and COMPLETE the ENTIRE course regardless of the improvement of your symptoms. Look for signs of infection of the wound including: increased pain, swelling, foul discharge, streaking, or increased temperature. If any of these are noticed you should return to the Emergency Department for further assessment and treatment. For pain control, you can use the following ivpo-zpy-[id number] medicines (if >12 yo): - Regular strength (325mg/tab) Tylenol (acetaminophen) 2 tabs every 4-6 hours as needed. Do not exceed 12 tablets in a 24 hour period. Avoid taking more than 4 grams (4000 mg) of Tylenol per day. This includes any other sources of acetaminophen you may take on a regular basis. - Regular strength (200 mg/tab) Advil (ibuprofen) 1-2 tabs every 4-6 hours as needed. Do not exceed a dose of 3200 mg per day. You should follow up with your primary care provider in 2-3 days for recheck of the wound, and to ensure proper healing. Return to the emergency department if your symptoms worsen despite treatment course outlined above. Problem List Surgical Problems: (1) No significant past surgical history Status: Resolved Current/Historical Medications Scheduled Bupropion Hcl (Wellbutrin), 100 MG PO QAM Cephalexin Monohydrate (Keflex), 500 MG PO QID Citalopram Hydrobromide (Citalopram Hydrobromide), 20 MG PO QD@1200 Gabapentin (Neurontin), 300 MG PO TID Levothyroxine Sodium (Synthroid), 50 MCG PO DAILY Metformin Hcl (Glucophage), 500 MG PO TID Montelukast Sodium (Singulair), 10 MG PO DAILY Mupirocin (Bactroban 2% Oint), 1 APPLN EXT BID Prazosin Hcl (Prazosin), 1 MG PO HS Topiramate (Topamax), 50 MG PO BID Scheduled PRN Albuterol Hfa (Ventolin Hfa), 2 PUFFS INH QID PRN for Asthma Symptoms Trazodone Hcl (Trazodone), 100 MG PO HS PRN for Sleep Allergies Coded Allergies: Aspirin (Verified Allergy, Unknown, HIVES, 11/27/16) BEE STING (Verified Allergy, Unknown, unknown, 11/27/16) [place] (Verified Allergy, Unknown, HIVES, 11/27/16) Lactose (Verified Allergy, Unknown, ., 11/27/16) Vital Signs Date Time Temp Pulse Resp B/P (MAP) Pulse Ox O2 Delivery O2 Flow Rate FiO2 01/08/17 18:51 36.7 88 18 136/86 99 Room Air Departure Information Impression Primary Impression: Burn Additional Impression: Wound infection Dispostion Home / Self-Care Condition GOOD Prescriptions Mupirocin (Bactroban 2% Oint) 66 Appln/22 Gm Oint 1 APPLN EXT BID for 7 Days, #1 TUBE Prov: Jamia Thomson PA-C 01/08/17 Cephalexin Monohydrate (Keflex) 500 Mg Cap 500 MG PO QID for 7 Days, #28 CAP Prov: Jamia Thomson PA-C 01/08/17 Referrals Tj Draper M.D. (PCP) Patient Instructions ED Burn Wound Check FU [facility] Additional Instructions You have been treated in the Emergency Department today for a burn on your breasts. You have been prescribed Bactroban (mupirocin) Ointment. This is an antibiotic ointment that will help to prevent the development of an infection at the site of your burn. After you have cleaned the burn site with soap and water and dried the area thoroughly, you should apply a layer of the ointment to the site of the burn with clean gauze or a clean tongue depressor. You should apply a dressing over the site of the burn to keep it clean from contamination. You were prescribed Keflex to be taken 4 times daily. This is an antibiotic. All antibiotics have the potential to cause diarrhea. Stop this medication and contact a medical provider if you were to develop any significant adverse side effects including: wheezing, shortness of breath, passing out, vomiting, or a diffuse rash. Always take antibiotics as directed and COMPLETE the ENTIRE course regardless of the improvement of your symptoms. Look for signs of infection of the wound including: increased pain, swelling, foul discharge, streaking, or increased temperature. If any of these are noticed you should return to the Emergency Department for further assessment and treatment. For pain control, you can use the following tujd-nsq-tjllqpf medicines (if >12 yo): - Regular strength (325mg/tab) Tylenol (acetaminophen) 2 tabs every 4-6 hours as needed. Do not exceed 12 tablets in a 24 hour period. Avoid taking more than 4 grams (4000 mg) of Tylenol per day. This includes any other sources of acetaminophen you may take on a regular basis. - Regular strength (200 mg/tab) Advil (ibuprofen) 1-2 tabs every 4-6 hours as needed. Do not exceed a dose of 3200 mg per day. You should follow up with your primary care provider in 2-3 days for recheck of the wound, and to ensure proper healing. Return to the emergency department if your symptoms worsen despite treatment course outlined above. Problem Qualifiers
[2017-01-08 20:09] VITALS: BP 132/81; PULSE 85; O2SAT 98
== END 2017-01-08 20:09 | disposition home or self-care (01) ==
LOC: C.EDB 18:38 → C.EDD 20:09
DX: T21.21XA Burn of second degree of chest wall, initial encounter (principal); L08.9 Local infection of the skin and subcutaneous tissue, unspecified; X15.0XXA Contact with hot stove (kitchen), initial encounter; Y92.010 Kitchen of single-family (private) house as the place of occurrence of the external cause; Y93.G3 Activity, cooking and baking; F32.9 Major depressive disorder, single episode, unspecified; E11.9 Type 2 diabetes mellitus without complications; F41.9 Anxiety disorder, unspecified; E03.9 Hypothyroidism, unspecified; F31.9 Bipolar disorder, unspecified; J45.909 Unspecified asthma, uncomplicated; G43.909 Migraine, unspecified, not intractable, without status migrainosus; F17.210 Nicotine dependence, cigarettes, uncomplicated; Z79.899 Other long term (current) drug therapy

== ENCOUNTER 2017-06-23 23:27 | Emergency (ER) | payer OTHER ==
[~2017-06-23] VITALS: Ht 170.2 cm; Wt 130.6 kg
[~2017-06-23 23:27] MED LIST changes: -FLUT0.15 NAE
[2017-06-23 23:34] VITALS: TEMP 37; Ht 170.2 cm; Wt 130.6 kg
--- NOTE | 2017-06-24 01:02 | EMERGENCY ROOM VISIT NOTE ---
History Report prepared by Km: Fay Shook Under the Supervision of: Dr. Angela Temple D.O. First contact with patient: 23:32 Chief Complaint: OTHER COMPLAINT Stated Complaint: ANXIOUS History of Present Illness The patient is a 21 year old female who presents to the Emergency Room with complaints of an episode of an accidental overdose occurring this evening. The patient states that she smokes meth daily. She states that she came home high tonight and her mom yelled at her. She reports that her cousin who is a previous addict told her she needs to come in. She states that she usually smokes marijuana with her meth. She states that she does so at her friend's house. She states that she also snorts pills that aren't hers when she cannot get meth. She states that she has not been clean for more than one day in the past year due to withdraw symptoms. The patient states that she once went to [facility] in [place] for her heroine use and states that she was clean for a month before starting meth. She denies using heroine anymore. The patient complains of feeling very warm. The patient denies chest pain, heart palpitations, shortness of breath, fevers, chills, and suicidal thoughts. The patient notes that she cuts her arms and legs as a form of relief and to get rid of the numbness that she feels. She states that it helps her calm down. She notes that she last cut a few nights ago. She states that she uses knives and razors when she cuts. Source of History: patient Onset: this evening Position: other (global) Quality: other (mental health) Timing: other (episode) Associated Symptoms: No fevers, No chills, No chest pain, No SOB Note: The patient complains of feeling very warm. The patient denies heart palpitations and suicidal thoughts. Review of Systems See HPI for pertinent positives & negatives. A total of 10 systems reviewed and were otherwise negative. Past Medical & Surgical Medical Problems: (1) Anxiety State Nos (2) Attn Deficit W Hyperact (3) Diab Lucinda Wo Compl, Type Ii Or Unspec Type, Not Uncntrld (4) Tobacco Use Disorder Surgical Problems: (1) No significant past surgical history Family History Diabetes mellitus Social History Smoking Status: Current Every Day Smoker Alcohol Use: none Drug Use: cocaine, heroin, marijuana, other (meth) Marital Status: in relationship Occupation Status: unemployed Current/Historical Medications Scheduled Fluticasone Propionate (Nasal) (Flonase Allergy Relief), 2 SPRAYS NATALIE DAILY Gemfibrozil (Lopid), 600 MG PO BID Levothyroxine Sodium (Synthroid), 50 MCG PO DAILY Loratadine (Claritin), 10 MG PO DAILY Metformin Hcl (Glucophage), 500 MG PO TID Montelukast Sodium (Singulair), 10 MG PO DAILY Paroxetine (Paxil), 20 MG PO DAILY Polyethylene Glycol 3350 (Miralax), 17 GM PO DAILY Propranolol (Inderal), 10 MG PO TID Quetiapine Fumarate (Seroquel), 25 MG PO BID Quetiapine Fumarate (Seroquel), 50 MG PO HS Scheduled PRN Naproxen Ds (Naprosyn Ds), 550 MG PO BID PRN for Pain Allergies Coded Allergies: Aspirin (Verified Allergy, Unknown, HIVES, 06/24/17) BEE STING (Verified Allergy, Unknown, unknown, 06/24/17) [place] (Verified Allergy, Unknown, HIVES, 06/24/17) Lactose (Verified Allergy, Unknown, ., 06/24/17) Physical Exam Vital Signs Date Time Temp Pulse Resp B/P (MAP) Pulse Ox O2 Delivery O2 Flow Rate FiO2 06/24/17 01:31 85 18 122/79 96 Room Air 06/23/17 23:40 106 06/23/17 23:34 37.0 105 20 152/104 97 Room Air Physical Exam GENERAL: alert, well nourished, no distress, non-toxic, obese, appears slightly altered/ under the infleunce of something. EYE EXAM: normal conjunctiva, PERRL and EOM's grossly intact OROPHARYNX: no exudate, no erythema, lips, buccal mucosa, and tongue normal and mucous membranes are moist NECK: supple, no nuchal rigidity, no adenopathy, non-tender LUNGS: Clear to auscultation. Normal chest wall mechanics HEART: no murmurs, S1 normal and S2 normal, tachycardic rate ABDOMEN: abdomen soft, non-tender, normo-active bowel sounds, no masses, no rebound or guarding. BACK: Back is symmetrical on inspection and there is no deformity, no midline tenderness, no CVA tenderness. SKIN: no rashes and no bruising UPPER EXTREMITIES: upper extremities are grossly normal. Well healed bilateral forearms consistent with reported prior episodes of cutting LOWER EXTREMITIES: No pitting edema. NEURO EXAM: Normal sensorium, cranial nerves II-XII grossly intact, normal speech, no gross weakness of arms, no gross weakness of legs. PSYCH: Patient denies SI. Medical Decision & Procedures Laboratory Results Test 06/23/17 23:38 Urine Color YELLOW Urine Appearance CLEAR (CLEAR) Urine pH 5.0 (4.5-7.5) Urine Specific [place] 1.027 (1.000-1.030) Urine Protein NEG (NEG) Urine Glucose (UA) NEG (NEG) Urine Ketones NEG (NEG) Urine Occult Blood TRACE (NEG) Urine Nitrite NEG (NEG) Urine Bilirubin NEG (NEG) Urine Urobilinogen NEG (NEG) Urine Leukocyte Esterase NEG (NEG) Urine WBC (Auto) 1-5 /hpf (0-5) Urine RBC (Auto) 0-4 /hpf (0-4) Urine Hyaline Casts (Auto) 0 /lpf (0-5) Urine Epithelial Cells (Auto) 20-30 /lpf (0-5) Urine Bacteria (Auto) NEG (NEG) Urine Test NEG (NEG) Urine Opiates Screen NEG (NEG) Urine Methadone, Qualitative NEG (NEG) Urine Barbiturates NEG (NEG) Urine Phencyclidine (PCP) Level NEG (NEG) Ur Amphetamine/Methamphetamine NEG (NEG) MDMA (Ecstasy) Screen NEG (NEG) Urine Benzodiazepines Screen NEG (NEG) Urine Cocaine Metabolite NEG (NEG) Urine Marijuana (THC) POS (NEG) Urine Marijuana (THC Carboxy Acid) 23 NG/ML (CUTOFF=5) Laboratory results per my review. ECG Indication: toxicologic Rate (beats per minute): 90 Rhythm: sinus rhythm Findings: no acute ischemic change, no ectopy, other (normal axis, normal intervals) ED Course 2341: The patient was evaluated in room A2. A complete history and physical exam was performed. 0058: I went to reevaluate the patient and she is on the phone. Her heart rate is better at 81. 0157: Upon reevaluation, the patient is feeling better. I discussed the findings and the treatment plan with the patient. She verbalizes agreement and understanding. The patient was discharged home. 0204: I interpreted the patient's EKG at this time. Medical Decision The patient is a 21 year old female who presents to the Emergency Room with complaints of an episode of an accidental overdose occurring this evening. Patient seen by case management and given referrals for outpatient drug rehabilitation. Discussed with patient risks of drug abuse. Discussed with her symptoms to watch and return for. Patient well-appearing here despite admission of recent drug use. Ambulate with a steady gait and tolerating by mouth. Vital signs reassuring. Patient had a safe and sober ride home. Patient's presentation not consistent with concerning toxidrome, no history to us or physical exam findings to suggest trauma. Patient had no complaints during bedside evaluation. Medication Reconcilliation Current Medication List: was personally reviewed by me Blood Pressure Screening Patient's blood pressure: Elevated blood pressure Blood pressure disposition: Elevated BP felt to be situational Impression Primary Impression: Substance abuse Scribe Attestation The scribe's documentation has been prepared under my direction and personally reviewed by me in its entirety. I confirm that the note above accurately reflects all work, treatment, procedures, and medical decision making performed by me. Departure Information Dispostion Home / Self-Care Referrals Tj Draper M.D. (PCP) Forms HOME CARE DOCUMENTATION FORM, IMPORTANT VISIT INFORMATION, WORK / SCHOOL INSTRUCTIONS Patient Instructions My [facility] Additional Instructions Please follow-up as directed by the therapeutic case manager. Please do not use illegal drugs. Use of illegal drugs can result in long-term health complications, incarceration, and even . If you have any new or concerning symptoms, please return the emergency room.
[2017-06-24] MEDS ORDERED: QUET1TAB32 PO (01:22)
[2017-06-24] MEDS ORDERED: GEMF600T PO (01:22)
[2017-06-24] MEDS ORDERED: PROP10TA7 PO (01:22)
[2017-06-24] MEDS ORDERED: PARO1TAB27 PO (01:22)
[2017-06-24] MEDS ORDERED: QUET1TAB30 PO (01:22)
[2017-06-24] MEDS ORDERED: CLR10 PO (01:23)
[2017-06-24] MEDS ORDERED: POLY335019 PO (01:23)
[2017-06-24] MEDS ORDERED: FLUT0.15 NAE (01:24)
[2017-06-24] MEDS ORDERED: NAPR-1168 PO (01:24)
[2017-06-24 01:31] VITALS: BP 122/79; PULSE 85; O2SAT 96
== END 2017-06-24 02:04 | disposition home or self-care (01) ==
LOC: EDBD 23:27 → C.EDA 23:29
DX: F15.20 Other stimulant dependence, uncomplicated (principal); F14.10 Cocaine abuse, uncomplicated; F11.10 Opioid abuse, uncomplicated; F12.10 Cannabis abuse, uncomplicated; F41.9 Anxiety disorder, unspecified; F90.9 Attention-deficit hyperactivity disorder, unspecified type; E11.9 Type 2 diabetes mellitus without complications; F17.200 Nicotine dependence, unspecified, uncomplicated; Z79.84 Long term (current) use of oral hypoglycemic drugs; Z83.3 Family history of diabetes mellitus; E66.9 Obesity, unspecified

== ENCOUNTER 2017-09-25 00:06 | Inpatient (IN) | payer OTHER ==
[~2017-09-25] VITALS: Ht 170.2 cm; Wt 131.0 kg
[~2017-09-25 00:06] MED LIST changes: -BUPR100T13 PO; -CITA20TA4 PO; +CLR10 PO; +FLUT0.15 NAE; -GABA-113 PO; +GEMF600T PO; +NAPR-1168 PO; +PARO1TAB27 PO; +POLY335019 PO; -PRAZ1CAP28 PO; +PROP10TA7 PO; +QUET1TAB30 PO; +QUET1TAB32 PO; -TOPI50TA24 PO; -TRAZ100T29 PO; -VNTHFA/IN INH
[2017-09-25] MEDS ORDERED: LORAZEPAM 1 MG TAB PO STA (00:30)
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
[2017-09-25 00:47] LABS: BASO % 0.1 %; BASO ABS # 0.02 K/uL (0-0.2); EOS % 1.4 %; EOS ABS # 0.23 K/uL (0-0.5); HEMOGLOBIN 14.3 g/dL (12.0-16.0); IG# 0.13 K/uL (0.00-0.02); LYMPH % 15.6 %; LYMPH ABS # 2.59 K/uL (1.2-3.4); MEAN CELL VOLUME 84.5 fL (80-100); MEAN CORPUSCULAR HEMOGLOBIN 29.5 pg (25-34); MEAN CORPUSCULAR HGB CONC 34.9 g/dl (32-36); MEAN PLATELET VOLUME 9.6 fL (7.4-10.4); MONO % 2.9 %; MONO ABS # 0.49 K/uL (0.11-0.59); NEUT % 79.2 %; NEUT ABS # 13.16 K/uL (1.4-6.5); PLATELET COUNT 338 K/uL (130-400); RED CELL DISTRIBUTION WIDTH CV 13.3 % (11.5-14.5); RED CELL DISTRIBUTION WIDTH SD 40.5 fL (36.4-46.3); WHITE BLOOD COUNT 16.62 K/uL (4.8-10.8)
[2017-09-25 01:09] LABS: ALBUMIN 4.1 gm/dl (3.4-5.0); CALCIUM 9.6 mg/dl (8.5-10.1); CREATININE 0.88 mg/dl (0.60-1.20); POTASSIUM 4.1 mmol/L (3.5-5.1)
[2017-09-25 01:20] LABS: TOTAL PROTEIN 8.4 gm/dl (6.4-8.2)
[2017-09-25] MEDS ORDERED: BUSP15TA70 PO (01:54)
[2017-09-25] MEDS ORDERED: POLYETHYLENE (MIRALAX) 17 GM PACK PO PRN (06:15)
[2017-09-25] MEDS ORDERED: SODIUM CHLORIDE 0.65% NA SOLN 45 ML (OCEAN) PRN (06:15)
[2017-09-25] MEDS ORDERED: MAGNESIUM HYDROXIDE SUSP 30 ML UDC PO PRN (06:15)
[2017-09-25] MEDS ORDERED: BISMUTH SUBSALICYLATE PER ML OMNICELL CHARGE PO PRN (06:15)
[2017-09-25] MEDS ORDERED: ALUMINUM/MAGNESIUM SUSP 30 ML UDC PO PRN (06:15)
[2017-09-25] MEDS ORDERED: ACETAMINOPHEN 325 MG TAB PO PRN (06:15)
[2017-09-25] MEDS ORDERED: hydrOXYzine HCL 25 MG TAB PO PRN ×2 (06:15)
[2017-09-25 06:35] VITALS: O2SAT 98
[2017-09-25 06:56] VITALS: BP 138/83; PULSE 81; TEMP 36.6; Ht 170.2 cm; Wt 131.0 kg
[2017-09-25] MEDS: METFORMIN HCL 500 MG TAB PO SCH ×3 (09:00→18:03)
[2017-09-25] MEDS: QUETIAPINE FUMARATE 25 MG TAB PO SCH ×2 (09:32→13:57)
[2017-09-25] MEDS: BusPIRone 15 MG TAB PO SCH ×3 (09:32→21:12)
[2017-09-25] MEDS: MONTELUKAST SOD 10 MG TAB PO SCH (09:33)
[2017-09-25] MEDS: PROPRANOLOL HCL 10 MG TAB PO SCH ×3 (09:33→21:12)
[2017-09-25] MEDS: LORATADINE 10 MG TAB PO SCH (09:34)
[2017-09-25] MEDS: PAROXETINE 20 MG TAB PO SCH (09:34)
[2017-09-25] MEDS: LEVOTHYROXINE 50 MCG TAB PO SCH (09:34)
[2017-09-25] MEDS: FLUTICASONE PROPIONATE NA SPR 16 GM BTL NAE SCH (09:35)
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
[2017-09-25] MEDS ORDERED: QUETIAPINE FUMARATE 25 MG TAB PO SCH (21:00)
[2017-09-26 06:54] VITALS: BP_SYST 104; BP_SYST 108; BP_DIAS 72; PULSE 62; PULSE 80; TEMP 36.6
[2017-09-26] MEDS: QUETIAPINE FUMARATE 25 MG TAB PO SCH (09:00)
[2017-09-26] MEDS: LEVOTHYROXINE 50 MCG TAB PO SCH (09:16)
[2017-09-26] MEDS: BusPIRone 15 MG TAB PO SCH ×3 (09:16→21:29)
[2017-09-26] MEDS: FLUTICASONE PROPIONATE NA SPR 16 GM BTL NAE SCH (09:16)
[2017-09-26] MEDS: PROPRANOLOL HCL 10 MG TAB PO SCH ×3 (09:16→21:29)
[2017-09-26] MEDS: PAROXETINE 20 MG TAB PO SCH (09:16)
[2017-09-26] MEDS: MONTELUKAST SOD 10 MG TAB PO SCH (09:16)
[2017-09-26] MEDS: LORATADINE 10 MG TAB PO SCH (09:17)
[2017-09-26] MEDS: METFORMIN HCL 500 MG TAB PO SCH ×3 (09:17→18:05)
--- NOTE | 2017-09-26 09:20 | Psychiatric Progress Notes ---
Progress Note Date of Service Sep 26, 2017. Interval History The patient with history of Schizoaffective Disorder was admitted to the [facility] on a 201 voluntary commitment on 09/25/17 after ED evaluation in which she voiced that a fight with her family caused her feel suicidal with a plan to use a knife and or run into traffic. She was recently released from the [facility] 1 week ago after voicing suicidal ideation and exhibiting SIB of "cutting". She has a history of self-injurious behaviors, cutting with knives, razors, scissors , and safety pins on her arms and legs. Chief Complaint ""I'm blocking my cousins mother from my phone"". Subjective Patient was seen & assessed. Interval progress reviewed with Treatment Team. The patient presents today. She is disheveled and malodorous. She is cooperative but clearly upset about recent interactions with her cousins mother. When asked how she is doing today she replies " I'm Ok if they would stop starting shit on me. They won't leave me the Fuck alone". She further reports "When I get out of here "I'm blocking her number on my phone". The patient would not reveal details as to why she is having relationship issues with this particular individual. The patient is unable to describe her mood today but rates it an 8/10. When prodded she clearly gets frustrated. She reports being "tired" and is upset that she is on Seroquel 25 mg BID as it makes her tired. She is Ok with Seroquel 50 mg at HS. She initially refused the option of moving it all to the bedtime Seroquel dose but then agreed when she realized that she was on Seroquel 1oo mg at HS and 50 mg in am while at Home. She reports tolerating her other medications without side effects. She reports going to groups and is eating well. Sleep is "good" but a little groggy feeling in the am upon waking. She admits to feeling down but not depressed again in context of issues with her cousins mother. She denies SI/HI plan or intent. Denies SIB. She denies having hallucinations. Review of Systems Psych: denies symptoms other than stated above Constitutional: denied Cardiovascular: denied GI: denied Neurologic: denied : denies flank pain, dysuria, hematuria, fever or chills Remainder of 9 body systems also reviewed and denied other than noted above. Sleep Information Total Hours of Sleep: 9.25 Meal Information Percent of Breakfast Consumed: 100 Percent of Lunch Consumed: 100 Percent of Dinner Consumed: 100 Mental Status Exam During interview pt is: alert and oriented Appearance: disheveled Eye contact is: fair (occasionally gazes away when thinking about her answers) Motor behavior is: steady gait & station, no abnormal motor movements Speech: normal in rate, rhythm & volume (with some latency to responses) Affect: depressed, flat, irritable (when discussing issues about cousins mother. ) Mood is: irritable, anxious Thought process: goal directed Thought content: reality based without delusions Suicidal thought are: denied, Plan: denied, Intent: denied Homicidal thoughts are: denied (at present, but has had in the past without plan or intent) Hallucinations: auditory (hears voices that she knows aren't real), denies visual Cognition: attention grossly intact, language grossly intact, other (poor memory for details) Intelligence estimated to be: below average Insight: impaired Judgement: impaired Impression 22-year-old patient of Dr. Huffman at [facility] and who was admitted voluntarily on upon presenting to the ED after a CANHELP evaluation revealed that the patient was making suicidal statements in the context of a family argument over her us of Marijuana. The patient was recently released 1 week ago from the [facility] for SIB and suicidal ideation. She is a poor historian with limited ability to recall all of her medication trials or even her current doses though she believes she was on Seroquel 100 mg at . Today, she continues with irritability and agitation in context of ongoing family issues singling out her cousins mother. She declined elaborating what the issues are but feels she will solve the problem by blocking her on social media. She reports "I just want to be left alone". She denies SI/HI plan or intent and denies SIB but given the fact that she recently was admitted to the [facility] for both, I believe she needs ongoing hospitalization for immediate stabilization of mood. She could benefit from daily structure and I encourage her to participate with groups on the unit. She is scheduled with a meetings involving social work and her . Due to her significant substance use background and the recent partaking in cannabis use all controlled substances will be avoided due to concerns for cross addictions. At this time, the patient requires inpatient mental health treatment due to the severity of her condition, and risk for self-harm if discharged. Plan (1) Schizoaffective disorder 09/25 - Limited historian about meds and so will need to obtain OP records from Dr. Gilliam re: meds, and records from [facility] hospitalization - Continue current regimen for now - FAmily meeting if indicated - May have to gear group materials to her level of education - Q 15 min checks for safety - Encourage participation in group and individual counseling - Coordinate with OP providers - Explore the case making machine operator referral with Jade Turner - Would benefit from increased structure ie [facility] or [facility]hab 09/26 - Increase Paxil to 40 mg start in am but will add Paxil 20 mg today to current 20 mg dose given already. (The patient was on Paxil 30 mg post [facility] discharge) - Discontinue Seroquel 25 mg BID and change Seroquel HS to 150 mg to mitigate daytime sedation. (This is what she was on post [facility] discharge) - Recent CBC on 09/25/17 revealed elevated WBC 16.62 wit PMN of 13.6. UA revealed 1 + blood. Patient denying physical symptoms. Recommend repeat CBC with UA on Thursday. (2) Polysubstance abuse 09/25 - Recommend abstinence - Recovery protocol (3) Cannabis use disorder, mild, abuse 09/25 - Recommend abstinence Discharge / Aftercare Planning Primary Care Physician: Name: Dr. Bonny Donis Appointment Notes: As needed Psychiatrist: Name: Dr. Baldwin Date of Appointment: Sep 09, 2017 Time of Appointment: 11:15 Therapist: Name: Sussy Donis [facility] Date of Appointment: October 01, 2017 Appointment Notes: October 08 1pm Mutuel Machine Operator: Name: In process - Jade Turner Inventory Assets Strengths: Love of her , on disability, good OP providers Needs: Abstain from all abusable substances Risk Factors Assessment : Yes /single/: No Higher / Fall in social status: No Health problems: Yes Mental Health Diagnoses: Yes Substance use disorders: Yes Previous attempt: Yes Previous psychiatric stay: Yes Smoker: Yes Protective Factors Assessment : Yes Responsible for young children: No Employed: No Stable relationships: Yes Good rapport with provider: Yes Data Vital Signs Last 24 Hrs: Date Time Temp Pulse Resp B/P (MAP) Pulse Ox O2 Delivery O2 Flow Rate FiO2 09/26/17 06:54 36.6 62 18 108/72 80 104/72 Meds Administered Last 24 Hrs: Meds Administered (Past 24Hrs) Medications (Trade) Dose Ordered Sig/Darnell Route Start Time Stop Time Status Last Admin Dose Admin Buspirone HCl (Buspar Tab) 15 mg TID STAT PO 09/25/17 00:30 09/25/17 00:32 DC 09/25/17 01:15 15 MG Lorazepam (Ativan Tab) 1 mg NOW STAT PO 09/25/17 00:30 09/25/17 00:32 DC 09/25/17 01:15 1 MG Buspirone HCl (BusPAR TAB) 15 mg TID PO 09/25/17 09:00 10/25/17 08:59 09/25/17 21:12 15 MG Fluticasone Propionate (Flonase Nasal [place]) 2 sprays DAILY NATALIE 09/25/17 09:00 10/25/17 08:59 09/25/17 09:35 2 SPRAYS Levothyroxine Sodium (Synthroid Tab) 50 mcg DAILYBB PO 09/25/17 08:00 10/25/17 07:59 09/25/17 09:34 50 MCG Loratadine (Claritin Tab) 10 mg DAILY PO 09/25/17 09:00 10/25/17 08:59 09/25/17 09:34 10 MG Metformin HCl (Glucophage Tab) 500 mg TIDM PO 09/25/17 09:00 10/25/17 08:59 09/25/17 18:03 500 MG Montelukast Sodium (Singulair Tab) 10 mg DAILY PO 09/25/17 09:00 10/25/17 08:59 09/25/17 09:33 10 MG Paroxetine HCl (pAXil TAB) 20 mg DAILY PO 09/25/17 09:00 10/25/17 08:59 09/25/17 09:34 20 MG Propranolol HCl (Inderal Tab) 10 mg TID PO 09/25/17 09:00 10/25/17 08:59 09/25/17 21:12 10 MG Quetiapine Fumarate (seroQUEL TAB) 25 mg BID@0900,1400 PO 09/25/17 09:00 10/25/17 08:59 09/25/17 13:57 25 MG Quetiapine Fumarate (seroQUEL TAB) 50 mg HS PO 09/25/17 21:00 10/25/17 20:59 09/25/17 21:11 50 MG
[2017-09-26] MEDS ORDERED: PARO1TAB27 PO (09:46)
[2017-09-26] MEDS ORDERED: QUET1TAB34 PO (09:47)
[2017-09-26] MEDS ORDERED: QUET1TAB32 PO (09:47)
[2017-09-26] MEDS ORDERED: PAROXETINE 20 MG TAB PO ONE (10:15)
[2017-09-26] MEDS: QUETIAPINE FUMARATE 100 MG TAB PO SCH (21:28)
[2017-09-27 06:56] VITALS: BP_SYST 103; BP_SYST 99; BP_DIAS 66; BP_DIAS 70; PULSE 65; PULSE 77; TEMP 36.4
[2017-09-27 06:58] LABS: BASO % 0.3 %; BASO ABS # 0.03 K/uL (0-0.2); EOS % 3.9 %; EOS ABS # 0.44 K/uL (0-0.5); HEMATOCRIT 37.5 % (37-47); HEMOGLOBIN 12.9 g/dL (12.0-16.0); IG# 0.06 K/uL (0.00-0.02); LYMPH % 36.1 %; LYMPH ABS # 4.07 K/uL (1.2-3.4); MEAN CELL VOLUME 85.6 fL (80-100); MEAN CORPUSCULAR HEMOGLOBIN 29.5 pg (25-34); MEAN CORPUSCULAR HGB CONC 34.4 g/dl (32-36); MEAN PLATELET VOLUME 9.3 fL (7.4-10.4); MONO % 4.9 %; MONO ABS # 0.55 K/uL (0.11-0.59); NEUT % 54.3 %; NEUT ABS # 6.11 K/uL (1.4-6.5); PLATELET COUNT 244 K/uL (130-400); RED CELL DISTRIBUTION WIDTH CV 13.5 % (11.5-14.5); RED CELL DISTRIBUTION WIDTH SD 41.8 fL (36.4-46.3); WHITE BLOOD COUNT 11.26 K/uL (4.8-10.8)
[2017-09-27] MEDS: BusPIRone 15 MG TAB PO SCH ×3 (09:02→22:28)
[2017-09-27] MEDS: LEVOTHYROXINE 50 MCG TAB PO SCH (09:02)
[2017-09-27] MEDS: LORATADINE 10 MG TAB PO SCH (09:02)
[2017-09-27] MEDS: FLUTICASONE PROPIONATE NA SPR 16 GM BTL NAE SCH (09:02)
[2017-09-27] MEDS: METFORMIN HCL 500 MG TAB PO SCH ×3 (09:03→17:34)
[2017-09-27] MEDS: MONTELUKAST SOD 10 MG TAB PO SCH (09:03)
[2017-09-27] MEDS: PAROXETINE 20 MG TAB PO SCH (09:03)
[2017-09-27] MEDS: PROPRANOLOL HCL 10 MG TAB PO SCH ×3 (09:05→22:29)
--- NOTE | 2017-09-27 10:11 | Psychiatric Progress Notes ---
Progress Note Date of Service Sep 27, 2017. Interval History The patient with history of Schizoaffective Disorder was admitted to the [facility] on a 201 voluntary commitment on 09/25/17 after ED evaluation in which she voiced that a fight with her family caused her feel suicidal with a plan to use a knife and or run into traffic. She was recently released from the [facility] 1 week ago after voicing suicidal ideation and exhibiting SIB of "cutting". She has a history of self-injurious behaviors, cutting with knives, razors, scissors , and safety pins on her arms and legs. Chief Complaint "I'm good so far". Subjective Patient was seen & assessed. Interval progress reviewed with Treatment Team: The patient reports she is having a good day. "Describes mood as "good" in context of having no contact with her cousins mother but if with contact her mood may change to angry or irritable. She hopes to be able to avoid fighting with family when discharged. She rates her mood a 10/10. She is tolerating her medications. She is showering, going to groups. She reports sleeping and eating well. She admits to having AH sometimes but has not had any today. Review of Systems Psych: denies symptoms other than stated above Constitutional: denied Cardiovascular: denied GI: denied Neurologic: denied Remainder of 10 body systems also reviewed and denied other than noted above. Sleep Information Total Hours of Sleep: 7.25 Meal Information Percent of Breakfast Consumed: 100 Percent of Lunch Consumed: 100 Percent of Dinner Consumed: 100 Mental Status Exam During interview pt is: alert and oriented Appearance: disheveled Eye contact is: good Motor behavior is: steady gait & station, no abnormal motor movements Speech: normal in rate, rhythm & volume (with some latency to responses) Affect: depressed, flat Mood is: irritable Thought process: goal directed Thought content: reality based without delusions Suicidal thought are: denied, Plan: denied, Intent: denied Homicidal thoughts are: denied (at present, but has had in the past without plan or intent) Hallucinations: auditory (hears voices that she knows aren't real), denies visual Cognition: attention grossly intact, language grossly intact, other (poor memory for details) Intelligence estimated to be: below average Insight: impaired Judgement: impaired Impression Today, the patient is with less irritability and agitation in context of ongoing family issues singling out her cousins mother however she does not know how things will go when out of unit. She denies SI/HI plan or intent. She continues with limited insight and judgement about her Cannabis use and also the conflict with her cousins mother believing that "blocking" this person on social media will solve all of her problems. She is not very good at conflict resolution skills and I believe she needs ongoing hospitalization for continued stabilization of mood. She could benefit from daily structure and I encourage her to participate with groups on the unit to learn coping skills. Plan (1) Schizoaffective disorder 09/25 - Limited historian about meds and so will need to obtain OP records from Dr. Gilliam re: meds, and records from [facility] hospitalization - Continue current regimen for now - FAmily meeting if indicated - May have to gear group materials to her level of education - Q 15 min checks for safety - Encourage participation in group and individual counseling - Coordinate with OP providers - Explore the case fitter referral with Jade Turner - Would benefit from increased structure ie [facility] or [facility]hab 09/26 - Increase Paxil to 40 mg start in am but will add Paxil 20 mg today to current 20 mg dose given already. (The patient was on Paxil 30 mg post [facility] discharge) - Discontinue Seroquel 25 mg BID and change Seroquel HS to 150 mg to mitigate daytime sedation. (This is what she was on post [facility] discharge) - Recent CBC on 09/25/17 revealed elevated WBC 16.62 wit PMN of 13.6. UA revealed 1 + blood. Patient denying physical symptoms. Recommend repeat CBC with UA on Thursday. 09/27 continue current meds and treatment plans. Awaiting [place] level results. Today's CBC with diff shows improvement in WBC and normal PMN's. She continues to deny any physical complaints and does not appear to be with active infection. As an OP, I would recommend follow up with her PCP. (2) Polysubstance abuse 09/25 - Recommend abstinence - Recovery protocol (3) Cannabis use disorder, mild, abuse 09/25 - Recommend abstinence Discharge / Aftercare Planning Primary Care Physician: Name: Dr. Bonny Donis Appointment Notes: As needed Psychiatrist: Name: Dr. Baldwin Date of Appointment: Sep 09, 2017 Time of Appointment: 11:15 Therapist: Name: Sussy Donis [facility] Date of Appointment: October 01, 2017 Appointment Notes: October 08 1pm Event Marketing Representative: Name: Connor Turner Visit Code E&M Code: 43750 Inventory Assets Strengths: Love of her , on disability, good OP providers Needs: Abstain from all abusable substances Risk Factors Assessment : Yes /single/: No Higher / Fall in social status: No Access to guns: No Health problems: Yes Mental Health Diagnoses: Yes Substance use disorders: Yes Previous attempt: Yes Previous psychiatric stay: Yes Smoker: Yes Protective Factors Assessment : Yes Responsible for young children: No Employed: No Stable relationships: Yes Good rapport with provider: Yes Data Vital Signs Last 24 Hrs: Date Time Temp Pulse Resp B/P (MAP) Pulse Ox O2 Delivery O2 Flow Rate FiO2 09/27/17 06:56 36.4 65 18 99/66 77 103/70 Meds Administered Last 24 Hrs: Meds Administered (Past 24Hrs) Medications (Trade) Dose Ordered Sig/Darnell Route Start Time Stop Time Status Last Admin Dose Admin Quetiapine Fumarate (seroQUEL TAB) 50 mg HS PO 09/25/17 21:00 09/26/17 10:09 DC 09/25/17 21:11 50 MG Paroxetine HCl (pAXil TAB) 40 mg DAILY PO 09/27/17 09:00 10/25/17 08:59 09/27/17 09:03 40 MG Quetiapine Fumarate (seroQUEL TAB) 150 mg HS PO 09/26/17 22:00 10/25/17 20:59 09/26/17 21:28 150 MG Paroxetine HCl (pAXil TAB) 20 mg NOW ONCE PO 09/26/17 10:15 09/26/17 10:16 DC 09/26/17 12:05 20 MG Lab Results Last 24 Hrs: Last 24 Hours Test 09/27/17 06:32 White Blood Count 11.26 K/uL Red Blood Count 4.38 M/uL Hemoglobin 12.9 g/dL Hematocrit 37.5 % Mean Corpuscular Volume 85.6 fL Mean Corpuscular Hemoglobin 29.5 pg Mean Corpuscular Hemoglobin Concent 34.4 g/dl Platelet Count 244 K/uL Mean Platelet Volume 9.3 fL Neutrophils (%) (Auto) 54.3 % Lymphocytes (%) (Auto) 36.1 % Monocytes (%) (Auto) 4.9 % Eosinophils (%) (Auto) 3.9 % Basophils (%) (Auto) 0.3 % Neutrophils # (Auto) 6.11 K/uL Lymphocytes # (Auto) 4.07 K/uL Monocytes # (Auto) 0.55 K/uL Eosinophils # (Auto) 0.44 K/uL Basophils # (Auto) 0.03 K/uL RDW Standard Deviation 41.8 fL RDW Coefficient of Variation 13.5 % Immature Granulocyte % (Auto) 0.5 % Immature Granulocyte # (Auto) 0.06 K/uL
--- NOTE | 2017-09-27 10:14 | Psych Management Progress Note ---
Psychiatry Miscellaneous Date of Service: Sep 27, 2017. Patient seen, MS assessed. Rates mood as 10/10. Hasn't completed safety plan yet. Patient remains less than amenable to any intervention around her MJ use. Extensive (>5 min) intervention around substance use issues occurred in family session with yesterday, remains precontemplation and will only agree to smoke outside. Encouraged cooperation with care and treatment plan as outlined by allied health prescriber. Seroquel consolidated to hs. Tolerating increase in Paxil. Ordered fasting metabolic labs. No abnormal motor movements.
[2017-09-27 14:24] VITALS: BP 111/71; PULSE 71
[2017-09-27] MEDS: QUETIAPINE FUMARATE 100 MG TAB PO SCH (22:29)
[2017-09-28 06:36] VITALS: BP_SYST 105; BP_SYST 107; BP_DIAS 68; BP_DIAS 69; PULSE 69; PULSE 79; TEMP 36.3
[2017-09-28] MEDS: BusPIRone 15 MG TAB PO SCH (08:42)
[2017-09-28] MEDS: LEVOTHYROXINE 50 MCG TAB PO SCH (08:42)
[2017-09-28] MEDS: PROPRANOLOL HCL 10 MG TAB PO SCH (08:42)
[2017-09-28] MEDS: FLUTICASONE PROPIONATE NA SPR 16 GM BTL NAE SCH (08:42)
[2017-09-28] MEDS: MONTELUKAST SOD 10 MG TAB PO SCH (08:43)
[2017-09-28] MEDS: PAROXETINE 20 MG TAB PO SCH (08:43)
[2017-09-28] MEDS: METFORMIN HCL 500 MG TAB PO SCH (08:43)
[2017-09-28] MEDS: LORATADINE 10 MG TAB PO SCH (08:43)
[2017-09-28] MEDS ORDERED: PARO1TAB27 PO (09:18)
[2017-09-28] MEDS ORDERED: QUET1TAB34 PO (09:18)
--- NOTE | 2017-09-28 10:09 | Discharge Instructions ---
Discharge Information Report Includes Report will include the: Discharge Instructions & Summary Admission Admission Date / Time: Sep 25, 2017 at 06:08 Reason for Admission: Schizoaffective D/O, Ptsd Discharge Discharge Diagnosis / Problem: Bipolar disorder type II, cannabis abuse Condition at Discharge: Good Discharge Goals Goal(s): Improve function, Improve disease control, Learn about illness, Therapeutic intervention, Specific goals (family meeting to address relationship issues) Activity Recommendations Activity Limitations: per Instructions/Follow-up section . Instructions / Follow-Up Instructions / Follow-Up . SPECIAL CARE INSTRUCTIONS: 1. Follow through with your scheduled aftercare appointments. If unable to keep an appointment, please call to reschedule. 2. Take your medication only as prescribed. Medication should not be changed or stopped without the approval of your doctor. In the event of worsening symptoms or concerns about side effects, contact your doctor immediately. 3. Utilize new healthy coping skills, anger management skills, and stress management skills learned during your hospitalization. Journal feelings and process them with a support person. Identify stressors or situations that may result in relapse, deterioration or inappropriate behaviors and develop a plan to deal with those issues. 4. If your coping skills are ineffective and you are in crisis, contact your outpatient providers for direction. If unable to reach your providers, please call the CAN HELP LINE AT or go to the closest Emergency Room. 5. Avoid alcohol and un-prescribed drugs. 6. You have been provided with the Mental Health Advance Directives Pamphlet for your review. AFTERCARE APPOINTMENTS: * Please call your insurance company prior to your scheduled appointment to confirm your aftercare providers are covered. Take your insurance information to your appointments. . Discharge / Aftercare Planning Primary Care Physician: Name: Dr. Bonny Donis Appointment Notes: As needed Psychiatrist: Name: Dr. Baldwin Date of Appointment: Sep 09, 2017 Time of Appointment: 11:15 Therapist: Name Of Therapist: Sussy Donis [facility] Date of Appointment: October 01, 2017 Appointment Comments: October 08 1pm Wing Scorer: Name: Connor Turner Home Health Services: Home Health Services: none . Follow-Up Care Plan for Follow-Up Care: See above. Current Hospital Diet Patient's current hospital diet: Regular Diet Discharge Diet Recommended Diet: Regular Diet Procedures Procedures Performed: No Pending Studies Pending Studies at Discharge: No Work Instructions Additional Instructions: Please excuse Puma from work on 09/25/17 as his is in the hospital. Thank you Mario Denson MD Medical Emergencies . Who to Call and When: Medical Emergencies: For questions or emergencies related to your hospital stay, please contact the Inpatient Behavioral Health Unit at [phone]. A nuclear technician is on-call 22/12 for the Behavioral Health Unit for emergencies At any time you feel your situation is an emergency, you may also call 911 immediately. . Non-Emergent Contact Non-Emergency issues call your: Psychiatrist, Therapist, Wing Scorer Past History Medical & Surgical History: (1) Class 3 obesity due to excess calories in adult (2) Hypothyroidism (3) Diabetes mellitus, type II (4) Polysubstance abuse Advance Directives Existing Advance Directive: No Do You Have an Existing Mental: No Existing Living Will: No Existing Power of Wrapper Stripper: No Advance Directives Info Given: To Pt/S.O. Advance Directives Reason: Declines as Mental Health Visit. Discharge Summary Admission HPI Per the Admitting provider: The patient is a 22-year-old woman with a long history of mental health treatment, currently in treatment at [facility] with Dr. Dominguezand therapist Sussy. She was recently hospitalized at the [facility] and discharged 1-2 weeks ago. She was apparently put back on Seroquel which she does not like because she feels sedated on it. She reports that her mood has been "irritated and anxious" even while in the [facility] and has continued to be so at home. Last night, she apparently had been smoking weed earlier in the day, went to her mother and stepfather's house apparently her stepfather was threatening to call the police and so she flushed the marijuana down the toilet and had been texting with a friend about getting rid of the pipe to avoid Any charges or risk of going to [facility]. She apparently made suicidal statements about using a knife and so they would not let her leave the house. Apparently this escalated to the point that she also threatened to jump in traffic to kill herself. She was apparently seen by can help in the field and then transported to the ER for medical clearance. She preferred to go to the [facility] because they can smoke there however Rachel declined the admission and so she was admitted voluntarily to our unit. When I see her today, she has just gotten out of bed and is still dressed in the disposable scrubs from the emergency department. She is cooperative with the interview but irritable. She again states that her mood has been " irritated and anxious" and has had off-and-on thoughts of suicide, even while in the hospital at [facility]. Her sleep is described as "off and on" but gets a "decent amount each night. Her appetite is okay, energy is "none". She attributes this in part to Seroquel which she does not like. Her anxiety is "very anxious" and does describe panic attacks that have been "bad lately" with symptoms of chest pressure, and feeling like her heart will pop out of her chest. She reports odd sensory experiences that do not clearly sound like hallucinations, saying that sometimes she thinks the doors opening and occasionally hears voices that she knows are not real. She admits to problems with anger and has been known to break things, for example a window. She also has occasional angry thoughts about killing people but never acts on them saying "it is not worth it, I do not want to go to [facility]". She denies specific homicidal ideation to anyone in particular at the moment. She confirms that she has been treated for schizoaffective disorder in the past and describes her manic times as periods when her mood is good and she spends money. Her last episode was several days ago when she had money and so she spent it. She denies extreme symptoms such as euphoria, sleeplessness, other pleasure seeking behaviors. She has a history of self-injurious behaviors, cutting with knives, razors, scissors, and safety pins on her arms and legs. Her last episode of cutting was prior to being admitted to the [facility]. Hospital Course (1) Bipolar II disorder 09/25 - Limited historian about meds and so will need to obtain OP records from Dr. Mane parks: meds, and records from [facility] hospitalization - Continue current regimen for now - Family meeting if indicated - May have to gear group materials to her level of education - Q 15 min checks for safety - Encourage participation in group and individual counseling - Coordinate with OP providers - Explore the caser referral with Jade Turner - Would benefit from increased structure ie [facility] or [facility] 09/26 - Increase Paxil to 40 mg start in am but will add Paxil 20 mg today to current 20 mg dose given already. (The patient was on Paxil 30 mg post [facility] discharge) - Discontinue Seroquel 25 mg BID and change Seroquel HS to 150 mg to mitigate daytime sedation. (This is what she was on post [facility] discharge) - Recent CBC on 09/25/17 revealed elevated WBC 16.62 wit PMN of 13.6. UA revealed 1 + blood. Patient denying physical symptoms. Recommend repeat CBC with UA on Thursday. 09/27 - continue current meds and treatment plans. Today's CBC with diff shows improvement in WBC and normal PMN's. She continues to deny any physical complaints and does not appear to be with active infection. As an OP, I would recommend follow up with her PCP. 09/28 -patient requesting discharge, and no longer at acute risk. Outpatient follow-up arranged with psychiatrist and therapist, and referred to Jade Turner for case management. Reviewed outpatient records, previous diagnoses include bipolar disorder type II, PTSD, cannabis use disorder, and rule out borderline intellectual functioning. -Fasting labs reviewed: Glucose normal at 87, fasting lipid profile notable for elevated triglycerides of 240. She will need to follow up with her PCP and continue monitoring for metabolic syndrome. -Outpatient [facility] records reviewed. (2) Polysubstance abuse 09/25 - Recommend abstinence - Recovery protocol 09/26 - Patient has been educated about the risks of ongoing substance abuse, and the recommendations for abstinence. She will follow up with her outpatient psychiatrist and therapist for mental health and substance abuse treatment. (3) Cannabis use disorder, mild, abuse 09/25 - Recommend abstinence 09/28 -Patient remains unwilling to commit to making changes in her substance use. Risk Factors Assessment : Yes /single/: No Higher / Fall in social status: No Access to guns: No Health problems: Yes Mental Health Diagnoses: Yes Substance use disorders: Yes Previous attempt: Yes Previous psychiatric stay: Yes Smoker: Yes Protective Factors Assessment : Yes Responsible for young children: No Employed: No Stable relationships: Yes Supportive family: Yes Good rapport with provider: Yes Absence of risk factors above: Yes (Risk factors mitigated by admission to the inpatient unit, adjusting medications to target mood and anxiety, involving her in groups and therapy on the unit, working on healthy coping skills and a discharge safety plan, education about the risks of substance use and recommendations for abstinence, and a family meeting with her . She is denying suicidal thoughts, reporting improved symptoms, and requesting discharge. She is performing her ADLs and taking medications as prescribed, and agrees to follow up with outpatient providers. She is no longer at acute risk of harm to herself, so can be discharged and managed as an outpatient at this time. She is denying thoughts of harming others, and although she has ongoing strife with others in her home, she feels able to return to live with them and is denying thoughts of harming them.) Day of Discharge Assessment Hospital course: On admission, the patient was a limited historian, and endorsed irritability with intermittent suicidal thoughts. Her quetiapine was consolidated to bedtime , as she reported the morning dose causes daytime grogginess. Her paroxetine was increased to 40 mg daily to address mood. Although she endorsed occasional angry thoughts about killing people, she stated that she never acts on them, as she did not want to face the legal consequences. She consistently denied thoughts of suicide and urges to self-harm. CBC was repeated due to elevated white blood cells, was 16.62 on admission and 11.26 two days later. Fasting labs were checked for monitoring on an atypical antipsychotic. She attended and participated in groups, and processed her stressors. She reported a strained relationship with her family, as they did not want her to smoke pot in the house, and threatened to call the police when she did so. She did not appear to be frankly psychotic, was not responding to internal stimuli, although she reported sometimes hearing voices or other noises. She endorsed "lizandro," which she described as irresponsibly spending money when she had it. She processed her stressors with staff, talked about being upset with her and who did not want the patient smoking pot in the house. She also talked about conflict with her stepfather, stating she would like to move out and get her own place, but admitted she had never lived apart from her parents and had never worked. Her works at [employer], and he participated in a family meeting on 09/26/2017 with the director of social media marketing. They discussed her ongoing conflict with multiple family members, as she feels her problems are caused by not getting along with her aunt and cousin who also live in the home. Her poor medication compliance was also discussed, as she admitted to missing many doses of her meds, as well as the importance of her getting a job if she wishes to be able to get her own apartment with her . Her denied any safety concerns with the patient being discharged, and both of them were in favor of discharge to home. She also spoke with her mother on the phone, who informed her that the cousin and aunt are not on the lease, and would not be allowed back in the home. She showed poor impulse control and judgment, making statements about wanting to punch her cousin and aunt, and at times was focused on her anger toward them. She did not however act out aggressively towards anyone, and was able to review healthy ways to cope when she is angry at others. She reported improved mood, feeling better about her home situation, and towards the end of her stay denied thoughts of harming others. She had to be redirected at times due to her inappropriate comments about her drug use. Day of discharge assessment: The patient states that her mood is "really good," and she denies thoughts of harming herself or others. She wants to go home, stating she feels safe to return and live with family, and is able to review ways she could cope if she were feeling irritable or upset, including talking to her , walking, or talking to her outpatient providers. She feels her medications are helping, and her daytime sedation is reduced since moving the quetiapine to bedtime. She denies any side effects to medications. She endorses understanding of the recommendations to decrease or ideally abstain from substance use, but not necessarily a willingness to follow these recommendations. She denies problems with sleep and appetite. She is looking forward to "spending time with my family," and is anxious to be discharged this morning. I reviewed the transition of care record with the patient, and instructed her to take medications as prescribed until they are discontinued by her physician. Obese female appearing stated age. Casually dressed with fair grooming, large tattoo on her neck. Calm and cooperative. Seated in NAD, with fair eye contact and no abnormal movements. Speech is normal rate, volume, and tone, multiple times interrupts. Mood is "really good," and affect is euthymic, with a mildly irritable edge, stable and congruent. Thoughts are concrete and goal directed. The patient denied suicidal and homicidal ideation and was able to review her safety plan. No paranoia, delusions, or hallucinations, and did not appear to be responding to internal stimuli. Alert and oriented to person, place and time. Intelligence is estimated to be below average. Insight and and judgment are limited. Laboratory Test 09/25/17 00:25 09/25/17 00:34 09/27/17 06:32 09/28/17 07:55 Urine Color YELLOW Urine Appearance CLEAR Urine pH 5.0 Urine Specific [place] 1.030 Urine Protein NEG Urine Glucose (UA) NEG Urine Ketones NEG Urine Occult Blood 1+ Urine Nitrite NEG Urine Bilirubin NEG Urine Urobilinogen NEG Urine Leukocyte Esterase NEG Urine WBC (Auto) 1-5 Urine RBC (Auto) 0-4 Urine Hyaline Casts (Auto) 0 Urine Epithelial Cells (Auto) 5-10 Urine Bacteria (Auto) NEG Urine Test NEG Urine Opiates Screen NEG Urine Methadone, Qualitative NEG Urine Barbiturates NEG Urine Phencyclidine (PCP) Level NEG Ur Amphetamine/Methamphetamine NEG MDMA (Ecstasy) Screen NEG Urine Benzodiazepines Screen NEG Urine Cocaine Metabolite NEG Urine Marijuana (THC) POS Urine Marijuana (THC Carboxy Acid) Pending White Blood Count 16.62 11.26 Red Blood Count 4.85 4.38 Hemoglobin 14.3 12.9 Hematocrit 41.0 37.5 Mean Corpuscular Volume 84.5 85.6 Mean Corpuscular Hemoglobin 29.5 29.5 Mean Corpuscular Hemoglobin Concent 34.9 34.4 Platelet Count 338 244 Mean Platelet Volume 9.6 9.3 Neutrophils (%) (Auto) 79.2 54.3 Lymphocytes (%) (Auto) 15.6 36.1 Monocytes (%) (Auto) 2.9 4.9 Eosinophils (%) (Auto) 1.4 3.9 Basophils (%) (Auto) 0.1 0.3 Neutrophils # (Auto) 13.16 6.11 Lymphocytes # (Auto) 2.59 4.07 Monocytes # (Auto) 0.49 0.55 Eosinophils # (Auto) 0.23 0.44 Basophils # (Auto) 0.02 0.03 RDW Standard Deviation 40.5 41.8 RDW Coefficient of Variation 13.3 13.5 Immature Granulocyte % (Auto) 0.8 0.5 Immature Granulocyte # (Auto) 0.13 0.06 Sodium Level 137 Potassium Level 4.1 Chloride Level 109 Carbon Dioxide Level 22 Anion Gap 6.0 Blood Urea Nitrogen 15 Creatinine 0.88 Est Creatinine Clear Calc Drug Dose 139.1 Estimated GFR () 106.6 Estimated GFR (Non- 92.0 BUN/Creatinine Ratio 16.9 Random Glucose 103 Calcium Level 9.6 Total Bilirubin 0.2 Aspartate Amino Transferase (AST) 14 Alanine Aminotransferase (ALT) 31 Alkaline Phosphatase 105 Total Protein 8.4 Albumin 4.1 Globulin 4.3 Albumin/Globulin Ratio 1.0 Thyroid Stimulating Hormone (TSH) 1.100 Salicylates Level 3.8 Acetaminophen Level < 2 Ethyl Alcohol mg/dL < 3.0 Fasting Glucose 87 Triglycerides Level 240 Cholesterol Level 147 HDL Cholesterol 46 LDL Cholesterol, Calculated 53 VLDL Cholesterol, Calculated 48 Cholesterol/HDL Ratio 3.2 Total Time Total Time Spent (min): Greater than 30 minutes Total Time Included: examination of the patient, discharge planning, medication reconciliation Tobacco Cessation at Discharge Smoking Status: Current Every Day Smoker FDA approved Prescription: declined med & out pt counseling
== END 2017-09-28 12:10 | disposition home or self-care (01) | DRG 885 ==
LOC: C.EDB 00:07 → C.MHU 06:08
PROVIDERS: ADMIT Psychiatry & Neurology Child & Adolescent Psychiatry; ATTEND Psychiatry & Neurology Child & Adolescent Psychiatry
DX: F25.9 Schizoaffective disorder, unspecified (principal); R45.851 Suicidal ideations; Z68.41 Body mass index [BMI] 40.0-44.9, adult; F12.10 Cannabis abuse, uncomplicated; F14.10 Cocaine abuse, uncomplicated; F11.10 Opioid abuse, uncomplicated; F17.200 Nicotine dependence, unspecified, uncomplicated; E66.9 Obesity, unspecified; Z91.5 Personal history of self-harm; Z79.84 Long term (current) use of oral hypoglycemic drugs; Z79.899 Other long term (current) drug therapy; Z88.6 Allergy status to analgesic agent; Z91.018 Allergy to other foods; Z91.030 Bee allergy status; Z83.3 Family history of diabetes mellitus

== ENCOUNTER 2019-01-11 09:37 | Observation (INO) ==
[2019-01-11] MEDS ORDERED: LORazepam 1 MG TAB PO STA (10:15)
--- NOTE | 2019-01-11 11:04 | Emergency Department Note ---
Entered by Mimi Birmingham acting as a scribe for Favio Kimble DO History of Present Illness General Chief complaint: Anxiety Stated complaint: ANXIETY Time Seen by Provider: 01/11/19 09:45 Source: patient History of Present Illness Provider complaint: Anxiety Onset (ago): day(s) Severity: severe (anxiety) Pain Consistency: + constant Maximum Pain Intensity: 0 Quality: + constant Associated symptoms: + loss of appetite and + other (positive: anxiety) The patient is a 23 year old female who presents to the ED with complaints of constant anxiety that happened a few days ago. The patient reports she is anxious and cannot deal with it anymore. She notes she has not taken her anxiety medications because they make her more anxious. The patient states she does not have thoughts of hurting herself or anyone. She reports she is going through a divorce and lives at a new apartment which triggered her anxiety. The patient notes she has not been eating or drinking normally. Home Medications Home Medications Medication Instructions Recorded Confirmed Type fluticasone propionate [Flonase 2 spray INTRANASAL DAILY PRN 04/16/18 01/11/19 History Allergy Relief] levothyroxine 50 mcg PO DAILY 04/16/18 01/11/19 History loratadine 10 mg PO DAILY 04/16/18 01/11/19 History polyethylene glycol 3350 17 g PO DAILY PRN 04/16/18 01/11/19 History albuterol sulfate [Ventolin HFA] 2 puff INHALATION QID PRN 12/01/18 01/11/19 History benztropine 1 mg PO DAILY PRN 01/11/19 01/11/19 History haloperidol 5 mg PO BID 01/11/19 01/11/19 History hydroxyzine HCl 50 mg PO HS 01/11/19 01/11/19 History venlafaxine [Effexor XR] 75 mg PO DAILY 01/11/19 01/11/19 History Allergies Allergy/AdvReac Type Severity Reaction Status Date / Time aspirin Allergy Severe HIVES Verified 01/11/19 10:37 [place] And Derivatives Allergy Severe HIVES Verified 01/11/19 10:37 bee venom protein (honey bee) Allergy Unknown unknown Verified 01/11/19 10:37 lactose Allergy Unknown . Verified 01/11/19 10:37 Past Med/Surg History Medical History Marijuana abuse (Chronic) Hyperinsulinemia (Chronic) Anxiety (Chronic) Hypothyroidism (Chronic) Bipolar II disorder (Chronic) Family History Mother Diabetes Social History Preferred Language: Kyrgyz Feels Safe at Home: Yes Smoking Status: Current every day smoker Tobacco Type: cigarettes ; Hx Alcohol Use: No Hx Substance Use: Yes substance use type: marijuana Review of Systems See HPI for pertinent positives & negatives. and A total of 10 systems reviewed and were otherwise negative Physical Exam Vital Signs Vital Signs - 24 hr 01/11/19 09:48 01/11/19 13:00 01/11/19 14:21 Temperature 36.5 C Temperature Source Oral Sepsis Recent Fever Within 48 Hours No Sepsis New/Unexplained Change in Mental Status No Sepsis Action Taken by Nursing No Action Required Pulse Rate 99 H Pulse Rate [Right Finger] 92 H 74 Respiratory Rate 20 20 20 Respiratory Effort / Characteristics Non-Labored Spontaneous Non-Labored Spontaneous Non-Labored Spontaneous Respiratory Depth Normal Normal Normal Respiratory Pattern Regular Regular Regular Blood Pressure 135/89 Blood Pressure [Right Arm] 128/88 129/76 Blood Pressure Mean 104 Blood Pressure Mean [Right Arm] 101 93 Blood Pressure Position Sitting Blood Pressure Position [Right Arm] Sitting Sitting Pulse Oximetry 97 97 99 Oxygen Delivery Method Room Air Room Air Room Air 01/11/19 15:44 Temperature Temperature Source Sepsis Recent Fever Within 48 Hours Sepsis New/Unexplained Change in Mental Status Sepsis Action Taken by Nursing Pulse Rate 99 H Pulse Rate [Right Finger] Respiratory Rate 20 Respiratory Effort / Characteristics Respiratory Depth Respiratory Pattern Blood Pressure 135/89 Blood Pressure [Right Arm] Blood Pressure Mean Blood Pressure Mean [Right Arm] Blood Pressure Position Blood Pressure Position [Right Arm] Pulse Oximetry 99 Oxygen Delivery Method Room Air GENERAL: Patient is awake and alert. She is guarded and somewhat anxious appearing. EYES: The conjunctivae are clear. The pupils are round and reactive. EARS, NOSE, MOUTH AND THROAT: The nose is without any evidence of any deformity. Mucous membranes are moist tongue is midline NECK: The neck is nontender and supple. RESPIRATORY: Normal respiratory effort is noted there is no evidence of wheezing rhonchi or rales CARDIOVASCULAR: Regular rate and rhythm noted there no murmurs rubs or gallops normal S1 normal S2 GASTROINTESTINAL: The abdomen is soft. Bowel sounds are present in all quadrants. Abdomen is nontender MUSCULOSKELETAL/EXTREMITIES: There is no evidence of gross deformity full range of motion is noted in the hips and shoulders SKIN: There is no obvious evidence of any rash. There are no petechiae, pallor or cyanosis noted. NEUROLOGIC: Patient is awake alert and oriented x3 strength is symmetric patellar reflexes are 2+ bilaterally PSYCH: Patient is anxious appearing. She is pacing around her room. She makes very poor eye contact. The patient is currently denying any suicidal homicidal ideation. Course 1009: The patient was evaluated in room A8. A complete history and physical exam was performed. 1413: Patient's CK is elevated compared to yesterday. The pateint'ts psychiatrist is concerned and would like the patient to be medically admitted. 1417: I discussed the pateint's case with Wolfgang Hernandez PA-C. The patient will be admitted and further evalauted by Wolfgang Suero [facility]. Consultations Consultation #1: I discussed the pateint's case with Wolfgang Hernandez PA-C. The patient will be admitted and further evalauted by Wolfgang Suero [facility]. Time: 14:17 Administered Medications Discontinued Medications Benztropine Mesylate (Cogentin) 1 mg PO NOW STA Stop: 01/11/19 12:46 Last Admin: 01/11/19 12:59 Dose: 1 mg Documented by: [id number] Sodium Chloride (Nss 1000ml) 1,000 mls @ 999 mls/hr IV .Q1H1M ONE Stop: 01/11/19 15:08 Last Infusion: 01/11/19 15:38 Dose: 0 mls/hr Documented by: [id number] Admin: 01/11/19 14:25 Dose: 999 mls/hr Documented by: [id number] Lorazepam (Ativan) 1 mg PO NOW STA Stop: 01/11/19 10:16 Last Admin: 01/11/19 10:19 Dose: 1 mg Documented by: [id number] Medical Decision Making Differential Diagnosis Differential diagnosis: Etiologies such as mood disorder, infection, hypoglycemia, electrolyte abnormalities, cardiac sources, intracerebral event, toxicologic, neurologic, as well as others were entertained. Medical Records Attestation: I reviewed the patient's medical records. Home Medications Current Medication List: was personally reviewed by me Laboratory Data Attestation: I reviewed the patient's lab results. Result diagrams: 01/11/19 13:05 01/11/19 13:05 Lab Results 01/11/19 01/11/19 01/11/19 Range/Units 10:20 10:20 13:05 WBC 12.22 H (4.8-10.8) K/uL RBC 4.49 (4.2-5.4) M/uL Hgb 13.3 (12.0-16.0) g/dL Hct 37.5 (37-47) % MCV 83.5 (80-100) fL MCH 29.6 (25-34) pg MCHC 35.5 (32-36) g/dL RDW Std Deviation 38.7 (36.4-46.3) fL RDW Coeff of Reynold 12.9 (11.5-14.5) % Plt Count 311 (130-400) K/uL MPV 8.8 (7.4-10.4) fL Immature Gran % (Auto) 0.3 % Neut % (Auto) 73.2 % Lymph % (Auto) 22.6 % [place] % (Auto) 3.8 % Eos % (Auto) 0.1 % Baso % (Auto) 0.0 % Immature Gran # (Auto) 0.04 H (0.00-0.02) K/uL Neut # (Auto) 8.95 H (1.4-6.5) K/uL Lymph # (Auto) 2.76 (1.2-3.4) K/uL [place] # (Auto) 0.46 (0.11-0.59) K/uL Eos # (Auto) 0.01 (0-0.5) K/uL Baso # (Auto) 0.00 (0-0.2) K/uL Sodium (136-145) mmol/L Potassium (3.5-5.1) mmol/L Chloride (98-107) mmol/L Carbon Dioxide (21-32) mmol/L Anion Gap (3-11) BUN (7-18) mg/dl Creatinine (0.6-1.2) mg/dl Est Cr Clr Drug Dosing ml/min Est GFR ( Amer) Est GFR (Non-Af Amer) BUN/Creatinine Ratio (10-20) Glucose (70-99) mg/dl Calcium (8.5-10.1) mg/dl Total Bilirubin (0.2-1) mg/dl AST (15-37) U/L ALT (12-78) U/L Alkaline Phosphatase (45-117) U/L Total Creatine Kinase (26-192) U/L CK-MB (CK-2) (0.5-3.6) ng/ml CK/CKMB % Calc (0-3.0) Total Protein (6.4-8.2) gm/dl Albumin (3.4-5.0) gm/dl Globulin (2.5-4.0) gm/dl Albumin/Globulin Ratio (0.9-2) TSH (0.300-4.500) uIu/ml HCG, Qual (Negative) Urine Color Yellow Urine Appearance Clear (Clear) Urine pH 5.5 (4.5-7.5) Ur Specific [place] 1.012 (1.000-1.030) Urine Protein Negative (Negative) Urine Glucose (UA) Negative (Negative) Urine Ketones Negative (Negative) Urine Blood Negative (Negative) Urine Nitrite Negative (Negative) Urine Bilirubin Negative (Negative) Urine Urobilinogen Negative (Negative) Ur Leukocyte Esterase Negative (Negative) Salicylates (2.8-20) mg/dl Urine Opiates Screen Neg (Neg) Ur Methadone, Qual Neg (Neg) Acetaminophen (10-30) ug/ml Urine Barbiturates Neg (Neg) Ur Phencyclidine (PCP) Neg (Neg) U Amphetamin/Meth Scrn Neg (Neg) MDMA (Ecstasy) Screen Neg (Neg) U Benzodiazepines Scrn Neg (Neg) Ur Cocaine Metabolite Neg (Neg) U Marijuana (THC) Screen Pos H (Neg) Ethyl Alcohol mg/dL (0-3) mg/dl 01/11/19 01/11/19 01/11/19 Range/Units 13:05 13:05 13:05 WBC (4.8-10.8) K/uL RBC (4.2-5.4) M/uL Hgb (12.0-16.0) g/dL Hct (37-47) % MCV (80-100) fL MCH (25-34) pg MCHC (32-36) g/dL RDW Std Deviation (36.4-46.3) fL RDW Coeff of Reynold (11.5-14.5) % Plt Count (130-400) K/uL MPV (7.4-10.4) fL Immature Gran % (Auto) % Neut % (Auto) % Lymph % (Auto) % [place] % (Auto) % Eos % (Auto) % Baso % (Auto) % Immature Gran # (Auto) (0.00-0.02) K/uL Neut # (Auto) (1.4-6.5) K/uL Lymph # (Auto) (1.2-3.4) K/uL [place] # (Auto) (0.11-0.59) K/uL Eos # (Auto) (0-0.5) K/uL Baso # (Auto) (0-0.2) K/uL Sodium 139 (136-145) mmol/L Potassium 3.8 (3.5-5.1) mmol/L Chloride 106 (98-107) mmol/L Carbon Dioxide 24 (21-32) mmol/L Anion Gap 9.0 (3-11) BUN 6 L (7-18) mg/dl Creatinine 0.76 (0.6-1.2) mg/dl Est Cr Clr Drug Dosing 154.7 ml/min Est GFR ( Amer) 126.4 Est GFR (Non-Af Amer) 109.0 BUN/Creatinine Ratio 7.6 L (10-20) Glucose 87 (70-99) mg/dl Calcium 9.1 (8.5-10.1) mg/dl Total Bilirubin 0.4 (0.2-1) mg/dl AST 21 (15-37) U/L ALT 33 (12-78) U/L Alkaline Phosphatase 101 (45-117) U/L Total Creatine Kinase 414 H (26-192) U/L CK-MB (CK-2) 9.5 H (0.5-3.6) ng/ml CK/CKMB % Calc 2.3 (0-3.0) Total Protein 7.9 (6.4-8.2) gm/dl Albumin 4.1 (3.4-5.0) gm/dl Globulin 3.8 (2.5-4.0) gm/dl Albumin/Globulin Ratio 1.1 (0.9-2) TSH 0.639 (0.300-4.500) uIu/ml HCG, Qual (Negative) Urine Color Urine Appearance (Clear) Urine pH (4.5-7.5) Ur Specific [place] (1.000-1.030) Urine Protein (Negative) Urine Glucose (UA) (Negative) Urine Ketones (Negative) Urine Blood (Negative) Urine Nitrite (Negative) Urine Bilirubin (Negative) Urine Urobilinogen (Negative) Ur Leukocyte Esterase (Negative) Salicylates 3.1 (2.8-20) mg/dl Urine Opiates Screen (Neg) Ur Methadone, Qual (Neg) Acetaminophen < 2 L (10-30) ug/ml Urine Barbiturates (Neg) Ur Phencyclidine (PCP) (Neg) U Amphetamin/Meth Scrn (Neg) MDMA (Ecstasy) Screen (Neg) U Benzodiazepines Scrn (Neg) Ur Cocaine Metabolite (Neg) U Marijuana (THC) Screen (Neg) Ethyl Alcohol mg/dL < 3.0 (0-3) mg/dl 01/11/19 Range/Units 13:05 WBC (4.8-10.8) K/uL RBC (4.2-5.4) M/uL Hgb (12.0-16.0) g/dL Hct (37-47) % MCV (80-100) fL MCH (25-34) pg MCHC (32-36) g/dL RDW Std Deviation (36.4-46.3) fL RDW Coeff of Reynold (11.5-14.5) % Plt Count (130-400) K/uL MPV (7.4-10.4) fL Immature Gran % (Auto) % Neut % (Auto) % Lymph % (Auto) % [place] % (Auto) % Eos % (Auto) % Baso % (Auto) % Immature Gran # (Auto) (0.00-0.02) K/uL Neut # (Auto) (1.4-6.5) K/uL Lymph # (Auto) (1.2-3.4) K/uL [place] # (Auto) (0.11-0.59) K/uL Eos # (Auto) (0-0.5) K/uL Baso # (Auto) (0-0.2) K/uL Sodium (136-145) mmol/L Potassium (3.5-5.1) mmol/L Chloride (98-107) mmol/L Carbon Dioxide (21-32) mmol/L Anion Gap (3-11) BUN (7-18) mg/dl Creatinine (0.6-1.2) mg/dl Est Cr Clr Drug Dosing ml/min Est GFR ( Amer) Est GFR (Non-Af Amer) BUN/Creatinine Ratio (10-20) Glucose (70-99) mg/dl Calcium (8.5-10.1) mg/dl Total Bilirubin (0.2-1) mg/dl AST (15-37) U/L ALT (12-78) U/L Alkaline Phosphatase (45-117) U/L Total Creatine Kinase (26-192) U/L CK-MB (CK-2) (0.5-3.6) ng/ml CK/CKMB % Calc (0-3.0) Total Protein (6.4-8.2) gm/dl Albumin (3.4-5.0) gm/dl Globulin (2.5-4.0) gm/dl Albumin/Globulin Ratio (0.9-2) TSH (0.300-4.500) uIu/ml HCG, Qual Negative (Negative) Urine Color Urine Appearance (Clear) Urine pH (4.5-7.5) Ur Specific [place] (1.000-1.030) Urine Protein (Negative) Urine Glucose (UA) (Negative) Urine Ketones (Negative) Urine Blood (Negative) Urine Nitrite (Negative) Urine Bilirubin (Negative) Urine Urobilinogen (Negative) Ur Leukocyte Esterase (Negative) Salicylates (2.8-20) mg/dl Urine Opiates Screen (Neg) Ur Methadone, Qual (Neg) Acetaminophen (10-30) ug/ml Urine Barbiturates (Neg) Ur Phencyclidine (PCP) (Neg) U Amphetamin/Meth Scrn (Neg) MDMA (Ecstasy) Screen (Neg) U Benzodiazepines Scrn (Neg) Ur Cocaine Metabolite (Neg) U Marijuana (THC) Screen (Neg) Ethyl Alcohol mg/dL (0-3) mg/dl Blood Pressure Blood Pressure Findings: Normal blood pressure Blood Pressure Disposition: did not require urgent referral MDM Narrative The patient is a 23-year-old female who presented to the emergency department for an evaluation of anxiety. The patient was seen in our facility multiple times since her discharge from her inpatient mental health visit. The patient was given a long-acting shot of Haldol and may be having a dystonic reaction. When I evaluated her yesterday she had no criteria for inpatient psychiatric care but was found to have a mildly elevated CPK. Today's CPK is higher than yesterday's drawing. I discussed the patient's laboratory results with her. She was treated with IV fluids as well as Cogentin in the emergency department. We discussed her case with psychiatry and they did recommend a medical admission at this time to ensure that the CPK did not continue to climb. For this reason I discussed her case with the on-call [facility] hospitalist group. They have agreed to evaluate the patient in the emergency department for further management disposition. Impression & Plan Anxiety, Dystonic drug reaction, Rhabdomyolysis Discharge Plan Visit Data Chief Complaint: Anxiety Stated Complaint: ANXIETY ED Provider: Favio Kimble Discharge Problem: Anxiety, Dystonic drug reaction, Rhabdomyolysis Patient Disposition: Being Evaluated by Hospitalist Discharge Instructions Interventions: ED Discharge Assessment Last Done: 01/11/19 15:44 Forms Stand Alone Forms: My [facility] Prescriptions Prescriptions: No Action albuterol sulfate [Ventolin HFA] 90 mcg/actuation Hfa Aerosol Inhaler 2 puff INHALATION QID PRN (Reason: Shortness Of Breath) RF: 0 levothyroxine 50 mcg Tablet 50 mcg PO DAILY RF: 0 polyethylene glycol 3350 17 gram/dose Powder 17 g PO DAILY PRN (Reason: Constipation) RF: 0 fluticasone propionate [Flonase Allergy Relief] 50 mcg/actuation [place],Suspension 2 spray INTRANASAL DAILY PRN (Reason: Allergy Symptoms) RF: 0 loratadine 10 mg Tablet 10 mg PO DAILY RF: 0 venlafaxine [Effexor XR] 75 mg Capsule,Extended Release 24hr 75 mg PO DAILY RF: 0 haloperidol 5 mg Tablet 5 mg PO BID RF: 0 hydroxyzine HCl 50 mg Tablet 50 mg PO HS RF: 0 benztropine 1 mg Tablet 1 mg PO DAILY PRN (Reason: Hypersensitivity Reaction) RF: 0 Referrals Referrals: Sussy Gallagher DO [Primary Care Provider] - The scribe's documentation has been prepared under my direction and personally reviewed by me in its entirety. I confirm that the note above accurately reflects all work, treatment, procedures, and medical decision making performed by me.
[2019-01-11] MEDS ORDERED: BENZTROPINE MESYLATE 1 MG TAB PO STA (12:45)
[2019-01-11 13:11] LABS: Appearance Urine Clear (Clear); Bilirubin Urine Negative (Negative); Blood Urine Negative (Negative); Color Urine Yellow; Glucose Urine UA Negative (Negative); Ketones Urine Negative (Negative); Leukocyte Esterase Urine Negative (Negative); Nitrite Urine Negative (Negative); Protein Urine Negative (Negative); Specific Gravity Urine 1.012 (1.000-1.030); Urobilinogen Urine Negative (Negative); pH Urine 5.5 (4.5-7.5)
[2019-01-11 13:18] LABS: Eosinophils # (auto) 0.01 K/uL (0-0.5); Eosinophils % (auto) 0.1 %; Hematocrit (blood only) 37.5 % (37-47); Hemoglobin 13.3 g/dL (12.0-16.0); Immature Granulocytes # (auto) 0.04 K/uL (0.00-0.02); Immature Granulocytes % (auto) 0.3 %; Lymphocytes # (auto) 2.76 K/uL (1.2-3.4); Lymphocytes % (auto) 22.6 %; Mean Corpuscular Hgb Conc 35.5 g/dL (32-36); Mean Corpuscular Volume 83.5 fL (80-100); Mean Platelet Volume 8.8 fL (7.4-10.4); Monocytes # (auto) 0.46 K/uL (0.11-0.59); Monocytes % (auto) 3.8 %; Neutrophils # (auto) 8.95 K/uL (1.4-6.5); Neutrophils % (auto) 73.2 %; Platelet Count 311 K/uL (130-400); RDW Coefficient of Variation 12.9 % (11.5-14.5); RDW Standard Deviation 38.7 fL (36.4-46.3); Red Blood Count 4.49 M/uL (4.2-5.4); White Blood Count 12.22 K/uL (4.8-10.8)
[2019-01-11 13:34] LABS: Pregnancy Test, Serum Negative (Negative)
[2019-01-11 13:35] LABS: Albumin Level 4.1 gm/dl (3.4-5.0); BUN Creatinine Ratio 7.6 (10-20); Calcium 9.1 mg/dl (8.5-10.1); Creatinine Clr Calc Pharmacy 154.7 ml/min; Est GFR (African American) 126.4; Potassium 3.8 mmol/L (3.5-5.1)
[2019-01-11 13:45] LABS: Albumin Globulin Ratio 1.1 (0.9-2); Bilirubin,Total 0.4 mg/dl (0.2-1); Creatine Kinase MB 9.5 ng/ml (0.5-3.6); Globulin 3.8 gm/dl (2.5-4.0); Total Protein 7.9 gm/dl (6.4-8.2)
[2019-01-11 13:48] LABS: Amphetamines+Metham, Urine Neg (Neg); Barbiturates, Urine Neg (Neg); Benzodiazepine, Urine Neg (Neg); Cocaine, Urine Neg (Neg); MDMA (Ecstacy), Urine Neg (Neg); Methadone, Urine Neg (Neg); Opiate, Urine Neg (Neg); Phencyclidine, Urine Neg (Neg)
[2019-01-11 14:00] LABS: Acetaminophen < 2 ug/ml (10-30); Salicylate 3.1 mg/dl (2.8-20)
[2019-01-11] MEDS ORDERED: SODIUM CHLORIDE 0.9% 1000ML 1,000 ML IV ONE (14:08)
--- NOTE | 2019-01-11 15:24 | History & Physical Report ---
Date of Service January 11, 2019 Assessment & Plan (1) Elevated CK: -Admit to [facility] -Patient presenting from home with reports of anxiety (received a dose of IM Haldol before discharge from the [facility] on 01/07, this is patient's third ED visit in 3 days for complaints of adverse reaction) -Was seen in the ER yesterday, CPK 226 -> 414 today -Possibly due to reaction from Haldol, marijuana use possibly contributing as well -Continue supportive care with IVF, follow CK level in the morning (2) Bipolar II disorder: (3) Medication reaction: -Patient with long-standing history of mental illness, has been trialed on several medications in the past -Per recent admission from the [facility], current medications are to include hydroxyzine, Haldol, Effexor, PRN Cogentin -Discussed with Fara Gee PA-C -Possibly experiencing a dystonic reaction from Haldol -Patient refusing to take Effexor at this time, will hold for now -Start scheduled Cogentin 1 mg twice daily and every 6 hours as needed for signs of restlessness/muscle stiffness -PRN Ativan for anxiety -No suicidal homicidal ideations (4) Hypothyroidism: -TSH 0.639 -Continue levothyroxine (5) Hyperinsulinemia: -Hgb A1c 5.2 07/2018 -Previously on metformin, however not currently taking (6) DVT prophylaxis: -SCDs, ambulate History of Present Illness Chief Complaint: Anxiety Primary Care Provider: Sussy Gallagher DO 23-year-old female who presents to the ED with a chief complaint of anxiety. [facility] and was discharged on 01/07. Prior to being discharged, patient received a dose of long- acting IM Haldol. This is the patient's third ED visit in 3 days for reports of not feeling well after receiving IM Haldol. While in the ER yesterday, patient received Cogentin, Ativan, IVF. She was also noted to have a mildly elevated CK at 226. Patient was feeling well and was discharged home. Today, patient reports with similar complaints. Patient's caregiver had been at the bedside and reported to the ED staff that patient is not acting herself. Patient also reports she took 1 dose of Seroquel yesterday which she had leftover from a p rior prescription. Patient denies chest pain and shortness of breath. She reports some occasional lightheadedness and dizziness but denies any syncopal events. She has had a poor appetite however denies abdominal pain, nausea, vomiting, diarrhea. No urinary symptoms. In the ED today, CK has gone up to 414. She received IVF, p.o. lorazepam, p.o. Cogentin. Mental health was consulted who recommended admission to medicine for further evaluation. Allergies Allergy/AdvReac Type Severity Reaction Status Date / Time [place] And Derivatives Allergy Severe HIVES Verified 01/11/19 10:37 aspirin Allergy Intermediate HIVES Verified 01/11/19 16:21 bee venom protein (honey bee) Allergy Unknown unknown Verified 01/11/19 10:37 lactose Allergy Unknown . Verified 01/11/19 10:37 Home Medications Home Medications Medication Instructions Recorded Confirmed Type fluticasone propionate [Flonase 2 spray INTRANASAL DAILY PRN 04/16/18 01/11/19 History Allergy Relief] levothyroxine 50 mcg PO DAILY 04/16/18 01/11/19 History loratadine 10 mg PO DAILY 04/16/18 01/11/19 History polyethylene glycol 3350 17 g PO DAILY PRN 04/16/18 01/11/19 History albuterol sulfate [Ventolin HFA] 2 puff INHALATION QID PRN 12/01/18 01/11/19 History benztropine 1 mg PO DAILY PRN 01/11/19 01/11/19 History haloperidol 5 mg PO BID 01/11/19 01/11/19 History hydroxyzine HCl 50 mg PO HS 01/11/19 01/11/19 History venlafaxine [Effexor XR] 75 mg PO DAILY 01/11/19 01/11/19 History Past Med/Surg History Medical History Marijuana abuse (Chronic) Hyperinsulinemia (Chronic) Anxiety (Chronic) Hypothyroidism (Chronic) Bipolar II disorder (Chronic) Family History Mother Diabetes Social History Preferred Language: Kiswahili Communication Ability: Effective Beliefs That Will Affect Care: None Current Living Situation: Parent Current Living Situation Comment: lives with mom Other Information That Helps Us Care for You: No Feels Safe at Home: Yes Safety Concerns: Feels Safe At This Time Smoking Status: Current every day smoker Tobacco Type: cigarettes ; Cigarettes Per Day: 20 ; Hx Alcohol Use: No Hx Substance Use: Yes substance use type: marijuana Last Used Substance: Hours (ago) Review of Systems Review of Systems: ROS per HPI, all other systems reviewed and negative Physical Exam Constitutional: WD/WN, vitals as above Eyes: PERRL, conjunctivae normal, anicteric sclerae ENMT: external ear and nose normal, oropharynx normal Respiratory: normal respiratory effort, lungs clear to auscultation Cardiovascular: Rate/Rhythm: regular rate and regular rhythm Vessels: normal peripheral pulses Extremities: no edema Gastrointestinal (Abdomen): normal bowel sounds, soft, nontender, no hepatosplenomegaly Musculoskeletal: no cyanosis or clubbing, extremities motor strength 5/5 Skin: no rashes, warm and dry Neurologic: PERRL, EOMI, accommodation nl, no face palsy, no dysarthria Psychiatric: Orientation: alert and oriented x 3 Affect: + flat affect patient reports feeling restless Results & Data Vital Signs (Past 12 Hours) Vital Signs Temp Pulse Pulse Resp BP BP Pulse Ox 01/11/19 14:21 74 20 129/76 99 01/11/19 13:00 92 H 20 128/88 97 01/11/19 09:48 36.5 C 99 H 20 135/89 97 Laboratory Results Short CBC 01/11/19 01/11/19 Range/Units 13:05 13:05 WBC 12.22 H (4.8-10.8) K/uL Hgb 13.3 (12.0-16.0) g/dL Hct 37.5 (37-47) % Plt Count 311 (130-400) K/uL Total Creatine Kinase 414 H (26-192) U/L BMP 01/11/19 13:05 Sodium 139 Potassium 3.8 Chloride 106 Carbon Dioxide 24 BUN 6 L Creatinine 0.76 Glucose 87 Calcium 9.1 Cardiac Enzymes 01/11/19 Range/Units 13:05 Total Creatine Kinase 414 H (26-192) U/L CK-MB (CK-2) 9.5 H (0.5-3.6) ng/ml Liver Function 01/11/19 Range/Units 13:05 Total Bilirubin 0.4 (0.2-1) mg/dl AST 21 (15-37) U/L ALT 33 (12-78) U/L Alkaline Phosphatase 101 (45-117) U/L Albumin 4.1 (3.4-5.0) gm/dl Urine 01/11/19 Range/Units 10:20 Urine Color Yellow Urine Appearance Clear (Clear) Urine pH 5.5 (4.5-7.5) Ur Specific [place] 1.012 (1.000-1.030) Urine Protein Negative (Negative) Urine Glucose (UA) Negative (Negative) Code Status & VTE Plan VTE Prophylaxis Plan VTE Prophylaxis will be ordered: Yes Supervising Physician Co-Signing Physician Notes Patient is a 22-year-old female with history of PTSD, bipolar disorder, hypothyroidism, prediabetes, morbid obesity, substance use disorder and other problems presents with history of anxiety, restlessness, leg pain with ambulation and not feeling well since receiving long-acting IM Haldol. Patient states being anxious secondary to her leaving her 2 days ago. Patient currently not interested in discussing about her past psychiatric history. Denies any chest pain, shortness of breath, dizziness, nausea, abdominal pain. Denies any suicidal, homicidal thoughts. Please review HPI for complete details of presentation. On exam patient is obese, normocephalic atraumatic, lungs are clear to auscultation, S1-S2, no murmur, abdomen soft nontender, grossly no focal neurological deficits, no pedal edema. Patient is admitted for management of anxiety, PTSD, possible drug reaction from Haldol. Has history of bipolar disorder as well. Patient is started on Cogentin as per recommendations from mental health. Ativan PRN. Agree with IV fluids, monitoring his CPK levels. Mental health consulted. Continue levothyroxine, TSH normal. I personally reviewed the record. Patient is interviewed and examined at bedside. Patient's care is coordinated with Halley Bose [facility]. Please refer to the documentation above for details of patient's presentation and for discussion of other issues.
[2019-01-11] MEDS ORDERED: ACETAMINOPHEN 325 MG TAB PO PRN (15:57)
[2019-01-11] MEDS ORDERED: BENZTROPINE MESYLATE 1 MG TAB PO PRN (15:57)
[2019-01-11] MEDS: SODIUM CHLORIDE 0.9% 1000ML 1,000 ML IV SCH ×2 (16:12→23:29)
[2019-01-11] MEDS: LORazepam 1 MG TAB PO PRN ×2 (16:51→23:29)
[2019-01-11] MEDS: BENZTROPINE MESYLATE 1 MG TAB PO SCH (19:49)
[2019-01-12] MEDS: LEVOTHYROXINE SODIUM 50 MCG TABLET PO SCH (05:16)
[2019-01-12] MEDS: LORazepam 1 MG TAB PO PRN ×3 (05:33→19:21)
[2019-01-12 06:48] LABS: Hematocrit (blood only) 34.6 % (37-47); Hemoglobin 11.7 g/dL (12.0-16.0); Mean Corpuscular Hgb Conc 33.8 g/dL (32-36); Mean Corpuscular Volume 85.6 fL (80-100); Mean Platelet Volume 9.3 fL (7.4-10.4); Platelet Count 257 K/uL (130-400); RDW Standard Deviation 40.6 fL (36.4-46.3); Red Blood Count 4.04 M/uL (4.2-5.4); White Blood Count 8.84 K/uL (4.8-10.8)
[2019-01-12 07:31] LABS: BUN Creatinine Ratio 11.4 (10-20); Calcium 8.9 mg/dl (8.5-10.1); Creatinine Clr Calc Pharmacy 156.8 ml/min; Est GFR (African American) 128.4; Est GFR (Non-African American) 110.8; Potassium 3.8 mmol/L (3.5-5.1)
[2019-01-12] MEDS: SODIUM CHLORIDE 0.9% 1000ML 1,000 ML IV SCH ×2 (07:31→16:02)
[2019-01-12] MEDS: BENZTROPINE MESYLATE 1 MG TAB PO SCH ×2 (08:19→21:09)
[2019-01-12] MEDS: NICOTINE 21 MG/24 HR TDSY TD SCH (08:19)
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
--- NOTE | 2019-01-12 12:45 | Pharmacy Report ---
ED Pharmacist Culture FollowUP - Culture Follow Up Note Date of Service: January 12, 2019 Notes:: Patient's urine culture growing lactobacillus species, patient admitted to . UA was nonsuggestive of UTI, no urinary symptom complaints documented, likely contaminate.
--- NOTE | 2019-01-12 19:04 | Hospitalist Progress Note ---
Date of Service January 12, 2019 Assessment & Plan (1) Elevated CK: Possibly due to reaction from Haldol, marijuana use possibly contributing as well At risk for mild Rhabdomyolysis CK level improving Decrease IV fluids (2) Bipolar II disorder: (3) Medication reaction: Patient present in anxiety, muscle stiffness and soreness, restlessness after receiving IM haloperidol decanoate PO haloperidol discontinued Continue benztropine 1 mg twice a day and every 6 hours as needed for muscle stiffness and soreness or excessive restlessness Plan to discontinue venlafaxine upon discharge as per patient's preference, and psychiatric input Avoid benzos upon discharge Appreciate psychiatry input No criteria for inpatient psychiatric admission Needs follow-up with psychiatry upon discharge Denies suicidal/homicidal ideations (4) Hypothyroidism: TSH 0.639 Continue levothyroxine (5) Hyperinsulinemia: Prediabetes Hgb A1c 5.2 07/2018 Previously on metformin however not currently taking (6) DVT prophylaxis: SCDs Encourage to ambulate Subjective Patient seen and examined at bedside Muscle stiffness, soreness and restlessness slowly improving Denies any chest pain, shortness of breath, dizziness, nausea, abdominal pain No other complaints CK levels improving Review of Systems Review of Systems: All systems reviewed & are unremarkable except as noted in HPI & below Physical Exam Physical Exam: Physical Exam: Vitals signs as noted above General Appearance:Obese, no apparent distress Head: normocephalic, Atraumatic Eyes: normal inspection, EOMI Neck: supple, Trachea midline Respiratory/Chest: Normal breath sounds, CTA Cardiovascular: S1, S2, No murmur Abdomen/GI:Soft, Non tender, Bowel sounds present Extremities/Musculoskelatal:normal inspection, no edema Neurologic/Psych:AAOX3, grossly no focal neurological deficits Skin: normal color, warm Results & Data Vital Signs (Past 12 Hours) Vital Signs Temp Pulse Resp BP Pulse Ox 01/12/19 15:05 36.8 C 88 19 131/84 98 01/12/19 07:33 36.7 C 70 18 119/77 100 Laboratory Results Short CBC 01/12/19 Range/Units 06:12 WBC 8.84 (4.8-10.8) K/uL Hgb 11.7 L (12.0-16.0) g/dL Hct 34.6 L (37-47) % Plt Count 257 (130-400) K/uL BMP 01/12/19 06:12 Sodium 141 Potassium 3.8 Chloride 110 H Carbon Dioxide 22 BUN 9 Creatinine 0.75 Glucose 88 Calcium 8.9 Cardiac Enzymes 01/12/19 Range/Units 06:12 Total Creatine Kinase 204 H (26-192) U/L
[2019-01-13] MEDS: SODIUM CHLORIDE 0.9% 1000ML 1,000 ML IV SCH (04:31)
[2019-01-13] MEDS: LORazepam 1 MG TAB PO PRN (06:25)
[2019-01-13] MEDS: LEVOTHYROXINE SODIUM 50 MCG TABLET PO SCH (06:25)
[2019-01-13] MEDS: BENZTROPINE MESYLATE 1 MG TAB PO SCH (08:02)
[2019-01-13] MEDS: NICOTINE 21 MG/24 HR TDSY TD SCH (08:03)
--- NOTE | 2019-01-13 10:11 | Communication Note ---
Date of Service: January 13, 2019 Received word via liaison nurse that patient's anxiety is elevated and is requesting medication at discharge to address this. She has reported hydroxyzine is effective for anxiety, and as she is already on the medication to assist with sleep at night, would suggest patient utilize 25 - 50mg of hydroxyzine for acute anxiety every 4 hours as needed. We were able to schedule an appointment with her outpatient psychiatric prescriber tomorrow, and would recommend further psychotropic medication changes be deferred to them as they are more knowledgeable of her medication history.
--- NOTE | 2019-01-13 12:59 | Hospitalist Progress Note ---
Date of Service January 13, 2019 Assessment & Plan (1) Elevated CK: Possibly due to reaction from Haldol, marijuana use possibly contributing as well At risk for mild Rhabdomyolysis CK levels normalized Discontinue IV fluids (2) Bipolar II disorder: (3) Medication reaction: Patient present in anxiety, muscle stiffness and soreness, restlessness after receiving IM haloperidol decanoate PO haloperidol discontinued Continue benztropine 1 mg twice a day and every 6 hours as needed for muscle stiffness and soreness or excessive restlessness Plan to discontinue venlafaxine upon discharge as per patient's preference, and psychiatric input Hydroxyzine PRN for anxiety Avoid benzos upon discharge Appreciate psychiatry input No criteria for inpatient psychiatric admission Needs follow-up with psychiatry upon discharge Denies suicidal/homicidal ideations (4) Hypothyroidism: TSH 0.639 Continue levothyroxine (5) Hyperinsulinemia: Prediabetes Hgb A1c 5.2 07/2018 Previously on metformin however not currently taking (6) DVT prophylaxis: SCDs Encourage to ambulate Subjective Patient seen and examined at bedside Anxious earlier today which improved Muscle stiffness, soreness and restlessness improved as well Denies any chest pain, shortness of breath, dizziness, nausea, abdominal pain CK levels normalized Review of Systems Review of Systems: All systems reviewed & are unremarkable except as noted in HPI & below Physical Exam Physical Exam: Physical Exam: Vitals signs as noted above General Appearance:Obese, no apparent distress Head: normocephalic, Atraumatic Eyes: normal inspection, EOMI Neck: supple, Trachea midline Respiratory/Chest: Normal breath sounds, CTA Cardiovascular: S1, S2, No murmur Abdomen/GI:Soft, Non tender, Bowel sounds present Extremities/Musculoskelatal:normal inspection, no edema Neurologic/Psych:AAOX3, grossly no focal neurological deficits Skin: normal color, warm Results & Data Vital Signs (Past 12 Hours) Vital Signs Temp Pulse Resp BP Pulse Ox 01/13/19 07:46 36.8 C 65 18 114/77 100 Laboratory Results Cardiac Enzymes 01/13/19 Range/Units 06:20 Total Creatine Kinase 105 (26-192) U/L
--- NOTE | 2019-01-13 13:11 | Discharge Summary ---
Date of Service January 13, 2019 Admission HPI Per Admitting Provider Fidelina Elliott is a 23-year-old female admitted medically on 01/11/19 due to concerns for possible recurrent dystonic reactions in the setting of recent medication changes - CK up-trending over the past 2 days. Patient was recently hospitalized at the [facility] and adverse medication reaction is questioned. Pt had reported to the international sales manager that she had received an injection of Haloperidol Decanoate prior to discharge from the [facility] "last week." She reports believing she is having a "bad reaction" to the medication - stating that she "can't put her arms down" - patient reportedly presenting in the ED with her arms up in the air, bent at the elbows. She had appeared very anxious and was pacing. There was laboratory evidence of muscle breakdown, as patient's CK had been increasing since her ED presentation one day prior (01/10 - 226; 01/11 - 414). Initial recommendations were reviewed with admitting SWITCH MAKER prior to evaluation to reduce recurrence of possible dystonia - recommending oral haloperidol be held, suggesting benztropine 1mg BID scheduled, with 1mg available q6h prn. Upon initial evaluation, the patient inquires of this provider, "so, am I getting my meds changed?" Pt states "I keep having anxiety because of the Haldol." She reports feeling "uncomfortable." Pt initially reports concern about "anxiety", but later states she feels like a "zombie". Pt asks for medication to help with her anxiety. When asked what this medication would be able to help with - and she states "my depression." When asked how she would rate her mood, the patient states - "I'd say it's an 8", with 10 being the highest." Pt denies SI/HI, A/V hallucinations, and overt paranoia or delusions. She reports she is taking her medications as prescribed, but had informed the ED doctor at a previous presentation that she had been taking both old and new medications. Records from [facility] were requested to further confirm current medication regimen. Admission Exam Per Admitting Provider Physical Exam Constitutional: WD/WN, vitals as above Eyes: PERRL, conjunctivae normal, anicteric sclerae ENMT: external ear and nose normal, oropharynx normal Respiratory: normal respiratory effort, lungs clear to auscultation Cardiovascular: Rate/Rhythm: regular rate and regular rhythm Vessels: normal peripheral pulses Extremities: no edema Gastrointestinal (Abdomen): normal bowel sounds, soft, nontender, no hepatosplenomegaly Musculoskeletal: no cyanosis or clubbing, extremities motor strength 5/5 Skin: no rashes, warm and dry Neurologic: PERRL, EOMI, accommodation nl, no face palsy, no dysarthria Psychiatric: Orientation: alert and oriented x 3 Affect: + flat affect patient reports feeling restless Principal Diagnosis Discharge Information Discharge Diagnosis Possible medication reaction Bipolar disorder Discharge Goals Decrease discomfort,Improve disease control, Improve function Discharge Activity Limitations Resume your previous activity Discharge Data Allergies Allergy/AdvReac Type Severity Reaction Status Date / Time [place] And Derivatives Allergy Severe HIVES Verified 01/11/19 10:37 aspirin Allergy Intermediate HIVES Verified 01/11/19 16:21 bee venom protein (honey bee) Allergy Unknown unknown Verified 01/11/19 10:37 lactose Allergy Unknown . Verified 01/11/19 10:37 Consultations 01/11/19 14:20 ED Decision to Admit Stat 01/11/19 15:57 Consult Case Management - Discharge Planning Routine Consult Psychiatry Routine Hospital Course (1) Elevated CK: Possibly due to reaction from Haldol, marijuana use possibly contributing as well At risk for mild Rhabdomyolysis CK levels normalized Discontinue IV fluids (2) Bipolar II disorder: (3) Medication reaction: Patient present in anxiety, muscle stiffness and soreness, restlessness after receiving IM haloperidol decanoate PO haloperidol discontinued Continue benztropine 1 mg twice a day and every 6 hours as needed for muscle stiffness and soreness or excessive restlessness Plan to discontinue venlafaxine upon discharge as per patient's preference, and psychiatric input Hydroxyzine PRN for anxiety Avoid benzos upon discharge Appreciate psychiatry input No criteria for inpatient psychiatric admission Needs follow-up with psychiatry upon discharge Denies suicidal/homicidal ideations (4) Hypothyroidism: TSH 0.639 Continue levothyroxine (5) Hyperinsulinemia: Prediabetes Hgb A1c 5.2 07/2018 Previously on metformin however not currently taking (6) DVT prophylaxis: SCDs Encourage to ambulate Total Time Total Time Spent Total Time Spent (In Minutes): 27 minutes Total Time Includes: Examination of the Patient, Discharge Planning, Medication Reconciliation, Communication With Other Providers and Other Discharge Plan Discharge Items Patient Disposition: Home - Self-Care Reason For Visit: MEDICATION REACTION Discharge Diagnosis: Possible medication reaction Bipolar disorder Discharge Goals: Decrease discomfort, Improve disease control and Improve function Activity: Resume your previous activity Exercise/Sports: Gradually increase as tolerated Driving/Machine Use Comment: No driving until cleared by your Primary Care Physician/Psychiatrist Non-emergency contact: Primary Care Provider and Psychiatrist Call non-emergency contact if: you have any medication questions, your symptoms worsen, your pain is not controlled, your pain is worsening, your pain is unusual for you, your pain is concerning for you and you have a fever Follow-up/Referrals: Verónica at [facility] [Other] (Appointment with Verónica at 2:00pm on ThursdayJANUARY 14) Sussy Gallagher DO [Primary Care Provider] - Diet: Regular Addtl Provider Instructions: Follow-up with your primary care physician Dr. El on January 17, 2019 at 10:55 AM Follow-up with your psychiatrist at [facility] which on January 14, 2019 as scheduled Seek immediate medical attention if your symptoms reoccur or worsen Prescriptions: New benztropine 1 mg Tablet 1 mg PO BID 3 Days Qty: 6 RF: 0 hydroxyzine HCl 25 mg Tablet 25 mg PO Q4H PRN (Reason: anxiety) Qty: 12 RF: 0 Continued albuterol sulfate [Ventolin HFA] 90 mcg/actuation Hfa Aerosol Inhaler 2 puff INHALATION QID PRN (Reason: Shortness Of Breath) RF: 0 levothyroxine 50 mcg Tablet 50 mcg PO DAILY RF: 0 polyethylene glycol 3350 17 gram/dose Powder 17 g PO DAILY PRN (Reason: Constipation) RF: 0 fluticasone propionate [Flonase Allergy Relief] 50 mcg/actuation [place],Suspension 2 spray INTRANASAL DAILY PRN (Reason: Allergy Symptoms) RF: 0 loratadine 10 mg Tablet 10 mg PO DAILY RF: 0 hydroxyzine HCl 50 mg Tablet 50 mg PO HS RF: 0 Discontinued venlafaxine [Effexor XR] 75 mg Capsule,Extended Release 24hr 75 mg PO DAILY RF: 0 haloperidol 5 mg Tablet 5 mg PO BID RF: 0 benztropine 1 mg Tablet 1 mg PO DAILY PRN (Reason: Hypersensitivity Reaction) RF: 0 Stand-Alone Forms: [facility] Discharge Orders: Discharge Order (Routine); Ordered 01/13/19 Ordered By: Kenton Shi Admission Data Admit Date/Time: 01/11/19 14:55 Attending Provider: Kenton Shi Admit Provider: Kenton Shi Primary Care Provider: Sussy Gallaghre Other Providers: Kenton Shi ; Margaret See Service: Medical Other Interventions: Discharge Summary Assessment (RN) Last Done: 01/13/19 13:16 Pending Studies at Discharge: No DC Date/Time DO NOT enter until pt leaves facility: 01/13/19 13:45
== END 2019-01-13 13:45 | disposition home or self-care (01) ==
LOC: 4W 09:37 → ED 09:37 → 4W 15:44

== ENCOUNTER 2019-05-26 21:08 | Inpatient (IN) ==
[2019-05-26 21:59] LABS: Basophils # (auto) 0.01 K/uL (0-0.2); Basophils % (auto) 0.1 %; Eosinophils # (auto) 0.19 K/uL (0-0.5); Eosinophils % (auto) 1.7 %; Hematocrit (blood only) 40.3 % (37-47); Hemoglobin 13.9 g/dL (12.0-16.0); Immature Granulocytes # (auto) 0.03 K/uL (0.00-0.02); Immature Granulocytes % (auto) 0.3 %; Mean Corpuscular Hemoglobin 29.6 pg (25-34); Mean Corpuscular Hgb Conc 34.5 g/dL (32-36); Mean Corpuscular Volume 85.9 fL (80-100); Mean Platelet Volume 9.2 fL (7.4-10.4); Monocytes # (auto) 0.38 K/uL (0.11-0.59); Monocytes % (auto) 3.4 %; Neutrophils # (auto) 7.49 K/uL (1.4-6.5); Neutrophils % (auto) 67.5 %; Platelet Count 287 K/uL (130-400); RDW Coefficient of Variation 13.2 % (11.5-14.5); RDW Standard Deviation 41.7 fL (36.4-46.3); Red Blood Count 4.69 M/uL (4.2-5.4)
[2019-05-26 22:07] LABS: Appearance Urine Cloudy (Clear); Bacteria Urine Automated 2+ (Negative); Bilirubin Urine Negative (Negative); Blood Urine 2+ (Negative); Color Urine Yellow; Epithelial Cell Urine Auto >30 /lpf (0-5); Glucose Urine UA Negative (Negative); Ketones Urine Negative (Negative); Leukocyte Esterase Urine Trace (Negative); Nitrite Urine Negative (Negative); Protein Urine Negative (Negative); Specific Gravity Urine 1.019 (1.000-1.030); Urobilinogen Urine Negative (Negative)
[2019-05-26 22:15] LABS: Alanine Aminotransferase 19 U/L (12-78); Albumin Level 3.8 gm/dl (3.4-5.0); Aspartate Aminotransferase 11 U/L (15-37); BUN Creatinine Ratio 12.9 (10-20); Blood Urea Nitrogen 10 mg/dl (7-18); Calcium 9.2 mg/dl (8.5-10.1); Carbon Dioxide 23 mmol/L (21-32); Chloride 110 mmol/L (98-107); Est GFR (African American) 124.4; Est GFR (Non-African American) 107.3; Glucose 86 mg/dl (70-99); Potassium 3.7 mmol/L (3.5-5.1); Sodium 139 mmol/L (136-145)
[2019-05-26 22:20] LABS: Cast Urine Automated 0 /lpf (0-5)
[2019-05-26 22:26] LABS: Alkaline Phosphatase 85 U/L (45-117); Bilirubin,Total 0.2 mg/dl (0.2-1); Globulin 3.7 gm/dl (2.5-4.0); Total Protein 7.5 gm/dl (6.4-8.2)
[2019-05-26 22:27] LABS: Amphetamines+Metham, Urine Neg (Neg); Barbiturates, Urine Neg (Neg); Benzodiazepine, Urine Pos (Neg); Cocaine, Urine Neg (Neg); MDMA (Ecstacy), Urine Neg (Neg); Methadone, Urine Neg (Neg); Opiate, Urine Neg (Neg); Phencyclidine, Urine Neg (Neg)
[2019-05-26 22:32] LABS: Acetaminophen < 2 ug/ml (10-30)
[2019-05-26 22:33] LABS: Salicylate 3.3 mg/dl (2.8-20)
--- NOTE | 2019-05-27 00:28 | Emergency Department Note ---
Entered by Jim Alston acting as a scribe for Isabel Hanson DO History of Present Illness General Chief complaint: Mental Health Evaluation Time Seen by Provider: 05/26/19 22:57 Source: patient History of Present Illness Provider complaint: mental health/SI Onset (ago): hour(s) less than 1 Location: head Pain Consistency: + intermittent Maximum Pain Intensity: 0 Quality: + other (mental health ) Exacerbated By: + other (stress) Associated symptoms: + denies other symptoms and + headaches The patient is a 23 y/o female who presents to the emergency department for a mental health evaluation. The patient states that this evening she wanted to hu rt herself really bad which resulted in her cutting herself on the left arm with a piece of glass she broke from a cup. She notes that she has felt this way in the past. The patient reports she feels like she has been isolating herself recently following the of her grandfather a few months ago. The case management specialist with her states that the patient has not been taking her medications for the past couple of weeks. The case management specialist reports that the patient reached out because she did not trust herself or her impulsivity and did not feel safe. The patient states that she is still intermittently hearing voices but they are currently not malicious. The patient states her last admission was over the summer. She admits to drinking and taking sleeping pills last evening hoping she wouldnt wake up. The patient reports a past medical history of use of metformin. She also notes a headache currently. The patient denies any other symptoms. Home Medications Home Medications Medication Instructions Recorded Confirmed Type fluticasone propionate [Flonase 2 spray INTRANASAL DAILY PRN 04/16/18 05/26/19 History Allergy Relief] loratadine 10 mg PO DAILY 04/16/18 05/26/19 History polyethylene glycol 3350 17 g PO DAILY PRN 04/16/18 05/26/19 History albuterol sulfate [Ventolin HFA] 2 puff INHALATION QID PRN 12/01/18 05/26/19 History hydroxyzine HCl 25 mg PO Q4H PRN #12 tab 01/13/19 05/26/19 Rx ondansetron HCl [Zofran] 4 mg PO QID PRN 01/15/19 05/26/19 History trihexyphenidyl 2 mg PO BID 01/15/19 05/26/19 History aripiprazole [Abilify] 5 mg PO DAILY 02/15/19 05/26/19 History buspirone 15 mg PO TID 02/15/19 05/26/19 History desogestrel-ethinyl estradiol 1 tab PO DAILY 02/15/19 05/26/19 History [Cyclessa (28)] levothyroxine 50 mcg PO DAILY 02/15/19 05/26/19 History metformin 500 mg PO BID 02/15/19 05/26/19 History Allergies Allergy/AdvReac Type Severity Reaction Status Date / Time [place] And Derivatives Allergy Severe HIVES Verified 02/15/19 17:15 aspirin Allergy Intermediate HIVES Verified 02/15/19 17:15 bee venom protein (honey bee) Allergy Unknown unknown Verified 02/15/19 17:15 lactose Allergy Unknown . Verified 02/15/19 17:15 Past Med/Surg History Medical History Anxiety (Chronic) Bipolar II disorder (Chronic) Hyperinsulinemia (Chronic) Hypothyroidism (Chronic) Marijuana abuse (Chronic) Family History Mother Diabetes Social History Preferred Language: Bulgarian Communication Ability: Effective Beliefs That Will Affect Care: None Current Living Situation: Parent Current Living Situation Comment: lives with mom Feels Safe at Home: Yes Smoking Status: Current every day smoker Tobacco Type: cigarettes ; Cigarettes Per Day: 20 ; Hx Alcohol Use: No Hx Substance Use: No Review of Systems See HPI for pertinent positives & negatives. and A total of 10 systems reviewed and were otherwise negative Physical Exam Vital Signs Vital Signs - 24 hr 05/26/19 21:15 05/26/19 23:00 Temperature 36.7 C Temperature Source Oral Pulse Rate 81 Pulse Rate [Finger] 76 Pulse Rhythm Regular Pulse Strength Normal Respiratory Rate 16 20 Respiratory Effort / Characteristics Non-Labored Respiratory Depth Normal Respiratory Pattern Regular Blood Pressure 154/103 H Blood Pressure [Right Arm] 136/78 Blood Pressure Mean 120 Blood Pressure Mean [Right Arm] 97 Blood Pressure Position Sitting Pulse Oximetry 96 99 Oxygen Delivery Method Room Air Sepsis Recent Fever Within 48 Hours No Sepsis Action Taken by Nursing No Action Required HEENT: Head - normocephalic and atraumatic Pupils are equal, round, and reactive to light. Extraocular eye muscles are intact, and sclera are anicteric. Nose - moist nasal mucosa without discharge. Mouth - moist buccal mucosa. Oropharynx is nonerythematous and there is no tonsillar exudate or edema noted. Neck: Supple; no JVD, nuchal rigidity, cervical lymphadenopathy. Heart: Regular rate and rhythm. There is a normal S1 and S2 with no murmurs, clicks, or gallops appreciated. Lungs: Clear to auscultation bilaterally with no wheezes, rales, or rhonchi. Abdomen: Soft, completely nontender, nondistended, with good bowel sounds. There are no palpable pulsatile masses or hepatosplenomegaly. There is no guarding, rigidity, or rebound noted. Extremities: Abrasion on ventral left forearm. No evidence of cyanosis, clubbing, or edema. There are easily palpable peripheral pulses. Skin: warm and dry with good turgor and no rashes. Psych: She has difficulty focusing, flat affect, admits to suicidal ideation. Course Course 2301: Past medical records reviewed. The patient was evaluated in room A05. A complete history and physical exam was performed. 0010: The patient was felt to be medically cleared. She will be evaluated by the ED psychiatric case management specialist. 0135: The patient was admitted to [address] [place] [address] for inpatient treatment. Medical Decision Making Differential Diagnosis Differential Diagnoses: medication noncompliance, mood disorder, thought disorder, self-mutilation, suicide attempt by overdose. Medical Records Attestation: I reviewed the patient's medical records. Home Medications Current Medication List: was personally reviewed by me Laboratory Data Attestation: I reviewed the patient's lab results. Result diagrams: 05/26/19 21:41 05/26/19 21:41 Lab Results 05/26/19 05/26/19 05/26/19 Range/Units 21:41 21:41 21:41 WBC 11.10 H (4.8-10.8) K/uL RBC 4.69 (4.2-5.4) M/uL Hgb 13.9 (12.0-16.0) g/dL Hct 40.3 (37-47) % MCV 85.9 (80-100) fL MCH 29.6 (25-34) pg MCHC 34.5 (32-36) g/dL RDW Std Deviation 41.7 (36.4-46.3) fL RDW Coeff of Reynold 13.2 (11.5-14.5) % Plt Count 287 (130-400) K/uL MPV 9.2 (7.4-10.4) fL Immature Gran % (Auto) 0.3 % Neut % (Auto) 67.5 % Lymph % (Auto) 27.0 % Island % (Auto) 3.4 % Eos % (Auto) 1.7 % Baso % (Auto) 0.1 % Immature Gran # (Auto) 0.03 H (0.00-0.02) K/uL Neut # (Auto) 7.49 H (1.4-6.5) K/uL Lymph # (Auto) 3.00 (1.2-3.4) K/uL Island # (Auto) 0.38 (0.11-0.59) K/uL Eos # (Auto) 0.19 (0-0.5) K/uL Baso # (Auto) 0.01 (0-0.2) K/uL Sodium 139 (136-145) mmol/L Potassium 3.7 (3.5-5.1) mmol/L Chloride 110 H (98-107) mmol/L Carbon Dioxide 23 (21-32) mmol/L Anion Gap 6.0 (3-11) BUN 10 (7-18) mg/dl Creatinine 0.77 (0.6-1.2) mg/dl Est Cr Clr Drug Dosing Not Reportable Est GFR ( Amer) 124.4 Est GFR (Non-Af Amer) 107.3 BUN/Creatinine Ratio 12.9 (10-20) Glucose 86 (70-99) mg/dl Calcium 9.2 (8.5-10.1) mg/dl Total Bilirubin 0.2 (0.2-1) mg/dl AST 11 L (15-37) U/L ALT 19 (12-78) U/L Alkaline Phosphatase 85 (45-117) U/L Total Protein 7.5 (6.4-8.2) gm/dl Albumin 3.8 (3.4-5.0) gm/dl Globulin 3.7 (2.5-4.0) gm/dl Albumin/Globulin Ratio 1.0 (0.9-2) TSH 2.320 (0.300-4.500) uIu/ml Urine Color Urine Appearance (Clear) Urine pH (4.5-7.5) Ur Specific [place] (1.000-1.030) Urine Protein (Negative) Urine Glucose (UA) (Negative) Urine Ketones (Negative) Urine Blood (Negative) Urine Nitrite (Negative) Urine Bilirubin (Negative) Urine Urobilinogen (Negative) Ur Leukocyte Esterase (Negative) Urine WBC (Auto) (0-5) /hpf Urine RBC (Auto) (0-4) /hpf U Hyaline Cast (Auto) (0-5) /lpf U Epithel Cells (Auto) (0-5) /lpf Urine Bacteria (Auto) (Negative) POC Ur Test (NEG) Salicylates 3.3 (2.8-20) mg/dl Urine Opiates Screen (Neg) Ur Methadone, Qual (Neg) Acetaminophen < 2 L (10-30) ug/ml Urine Barbiturates (Neg) Ur Phencyclidine (PCP) (Neg) U Amphetamin/Meth Scrn (Neg) MDMA (Ecstasy) Screen (Neg) U Benzodiazepines Scrn (Neg) Ur Cocaine Metabolite (Neg) U Marijuana (THC) Screen (Neg) Ethyl Alcohol mg/dL (0-3) mg/dl 05/26/19 05/26/19 05/26/19 Range/Units 21:41 Unknown Unknown WBC (4.8-10.8) K/uL RBC (4.2-5.4) M/uL Hgb (12.0-16.0) g/dL Hct (37-47) % MCV (80-100) fL MCH (25-34) pg MCHC (32-36) g/dL RDW Std Deviation (36.4-46.3) fL RDW Coeff of Reynold (11.5-14.5) % Plt Count (130-400) K/uL MPV (7.4-10.4) fL Immature Gran % (Auto) % Neut % (Auto) % Lymph % (Auto) % Island % (Auto) % Eos % (Auto) % Baso % (Auto) % Immature Gran # (Auto) (0.00-0.02) K/uL Neut # (Auto) (1.4-6.5) K/uL Lymph # (Auto) (1.2-3.4) K/uL [place] # (Auto) (0.11-0.59) K/uL Eos # (Auto) (0-0.5) K/uL Baso # (Auto) (0-0.2) K/uL Sodium (136-145) mmol/L Potassium (3.5-5.1) mmol/L Chloride (98-107) mmol/L Carbon Dioxide (21-32) mmol/L Anion Gap (3-11) BUN (7-18) mg/dl Creatinine (0.6-1.2) mg/dl Est Cr Clr Drug Dosing Est GFR ( Amer) Est GFR (Non-Af Amer) BUN/Creatinine Ratio (10-20) Glucose (70-99) mg/dl Calcium (8.5-10.1) mg/dl Total Bilirubin (0.2-1) mg/dl AST (15-37) U/L ALT (12-78) U/L Alkaline Phosphatase (45-117) U/L Total Protein (6.4-8.2) gm/dl Albumin (3.4-5.0) gm/dl Globulin (2.5-4.0) gm/dl Albumin/Globulin Ratio (0.9-2) TSH (0.300-4.500) uIu/ml Urine Color Yellow Urine Appearance Cloudy A (Clear) Urine pH 5.0 (4.5-7.5) Ur Specific [place] 1.019 (1.000-1.030) Urine Protein Negative (Negative) Urine Glucose (UA) Negative (Negative) Urine Ketones Negative (Negative) Urine Blood 2+ H (Negative) Urine Nitrite Negative (Negative) Urine Bilirubin Negative (Negative) Urine Urobilinogen Negative (Negative) Ur Leukocyte Esterase Trace H (Negative) Urine WBC (Auto) 10-30 H (0-5) /hpf Urine RBC (Auto) 5-10 H (0-4) /hpf U Hyaline Cast (Auto) 0 (0-5) /lpf U Epithel Cells (Auto) >30 H (0-5) /lpf Urine Bacteria (Auto) 2+ H (Negative) POC Ur Test (NEG) Salicylates (2.8-20) mg/dl Urine Opiates Screen Neg (Neg) Ur Methadone, Qual Neg (Neg) Acetaminophen (10-30) ug/ml Urine Barbiturates Neg (Neg) Ur Phencyclidine (PCP) Neg (Neg) U Amphetamin/Meth Scrn Neg (Neg) MDMA (Ecstasy) Screen Neg (Neg) U Benzodiazepines Scrn Pos H (Neg) Ur Cocaine Metabolite Neg (Neg) U Marijuana (THC) Screen Pos H (Neg) Ethyl Alcohol mg/dL < 3.0 (0-3) mg/dl 05/26/19 Range/Units Unknown WBC (4.8-10.8) K/uL RBC (4.2-5.4) M/uL Hgb (12.0-16.0) g/dL Hct (37-47) % MCV (80-100) fL MCH (25-34) pg MCHC (32-36) g/dL RDW Std Deviation (36.4-46.3) fL RDW Coeff of Reynold (11.5-14.5) % Plt Count (130-400) K/uL MPV (7.4-10.4) fL Immature Gran % (Auto) % Neut % (Auto) % Lymph % (Auto) % Island % (Auto) % Eos % (Auto) % Baso % (Auto) % Immature Gran # (Auto) (0.00-0.02) K/uL Neut # (Auto) (1.4-6.5) K/uL Lymph # (Auto) (1.2-3.4) K/uL [place] # (Auto) (0.11-0.59) K/uL Eos # (Auto) (0-0.5) K/uL Baso # (Auto) (0-0.2) K/uL Sodium (136-145) mmol/L Potassium (3.5-5.1) mmol/L Chloride (98-107) mmol/L Carbon Dioxide (21-32) mmol/L Anion Gap (3-11) BUN (7-18) mg/dl Creatinine (0.6-1.2) mg/dl Est Cr Clr Drug Dosing Est GFR ( Amer) Est GFR (Non-Af Amer) BUN/Creatinine Ratio (10-20) Glucose (70-99) mg/dl Calcium (8.5-10.1) mg/dl Total Bilirubin (0.2-1) mg/dl AST (15-37) U/L ALT (12-78) U/L Alkaline Phosphatase (45-117) U/L Total Protein (6.4-8.2) gm/dl Albumin (3.4-5.0) gm/dl Globulin (2.5-4.0) gm/dl Albumin/Globulin Ratio (0.9-2) TSH (0.300-4.500) uIu/ml Urine Color Urine Appearance (Clear) Urine pH (4.5-7.5) Ur Specific [place] (1.000-1.030) Urine Protein (Negative) Urine Glucose (UA) (Negative) Urine Ketones (Negative) Urine Blood (Negative) Urine Nitrite (Negative) Urine Bilirubin (Negative) Urine Urobilinogen (Negative) Ur Leukocyte Esterase (Negative) Urine WBC (Auto) (0-5) /hpf Urine RBC (Auto) (0-4) /hpf U Hyaline Cast (Auto) (0-5) /lpf U Epithel Cells (Auto) (0-5) /lpf Urine Bacteria (Auto) (Negative) POC Ur Test NEG (NEG) Salicylates (2.8-20) mg/dl Urine Opiates Screen (Neg) Ur Methadone, Qual (Neg) Acetaminophen (10-30) ug/ml Urine Barbiturates (Neg) Ur Phencyclidine (PCP) (Neg) U Amphetamin/Meth Scrn (Neg) MDMA (Ecstasy) Screen (Neg) U Benzodiazepines Scrn (Neg) Ur Cocaine Metabolite (Neg) U Marijuana (THC) Screen (Neg) Ethyl Alcohol mg/dL (0-3) mg/dl Blood Pressure Blood Pressure Findings: Elevated blood pressure Blood Pressure Disposition: Referred to patients primary care provider MDM Narrative The patient is a 23 y/o female who presents to the emergency department for a mental health evaluation. The patient broke a cup and use the glass to cut her left forearm. She also admits to drinking alcohol and taking sleeping pills last night in an effort to not wake up. The patient is suffering from significant mood disorder and is not currently taking her medications. She is willing to admit herself voluntarily for inpatient psychiatric care. Impression & Plan Suicidal ideation, Self-injurious behavior, Nonadherence to medication Discharge Plan Visit Data *Final* Discharge Date/Time: 05/27/19 01:51 Chief Complaint: Mental Health Evaluation ED Provider: Isabel Hanson Discharge Problem: Suicidal ideation, Self-injurious behavior, Nonadherence to medication Patient Disposition: Admitted As Inpatient Discharge Instructions Interventions: ED Discharge Assessment Last Done: 05/27/19 01:51 The scribe's documentation has been prepared under my direction and personally reviewed by me in its entirety. I confirm that the note above accurately re flects all work, treatment, procedures, and medical decision making performed by me.
[2019-05-27] MEDS ORDERED: MAGNESIUM HYDROXIDE SUSP 30 ML UDC PO PRN (02:04)
[2019-05-27] MEDS ORDERED: SODIUM CHLORIDE 0.65% NA SOLN 45 ML (OCEAN) PRN (02:04)
[2019-05-27] MEDS ORDERED: ALUMINUM/MAGNESIUM SUSP 30 ML UDC PO PRN (02:04)
[2019-05-27] MEDS ORDERED: BISMUTH SUBSALICYLATE PER ML OMNICELL CHARGE PO PRN (02:04)
[2019-05-27] MEDS ORDERED: FLUTICASONE PROPIONATE NA SPR 16 GM BTL PRN (14:36)
[2019-05-27] MEDS ORDERED: POLYETHYLENE (MIRALAX) 17 GM PACK PO PRN (14:36)
[2019-05-27] MEDS ORDERED: ONDANSETRON 4 MG TAB PO PRN (14:44)
--- NOTE | 2019-05-27 14:58 | History & Physical ---
Date of Service May 27, 2019 Impression / Recommendations Impression This 23-year-old woman presents with a prior diagnosis of schizo affective disorder, depressed, as well as a history of multiple previous psychiatric hospitalizations that reportedly are variously precipitated by suicidal or homicidal threats, or by actual suicide attempts. She reports that on the evening of 05/25/2019 she drank alcohol and took a deliberate overdose of trazodone with the intent to end her life. She did not tell anyone that she had done this, and then woke up the next morning without lingering negative affect. Later on the day of 05/26/2019 she again began to experience active suicidal thoughts and attempted to commit suicide by self cutting. She said that she attempted to use a piece of glass, but realized that the glass piece was too small to allow her to cut deeply. (She did not offer and explanation as to why she did not secure a larger piece of glass by breaking a glass object in her home.) Subsequent to that, she got in touch with her "blended case checker," and evidently reported the suicide attempts/active suicidal ideation. Patient says that she was advised by the blended case checker to call 911 and asked to be transported to [facility]'s emergency department for further evaluation. In the emergency department, she continued to voice active suicidal ideation and refused to contract for safety outside of the hospital. There is a known history of the abuse of mood altering chemical substances, including "crack" cocaine and methamphetamine. She acknowledges regular use of marijuana, and her tox screen at admission was positive for benzodiazepines (evidently not currently prescribed) and cannabinoids. Patient asserts that her recurrent episode of depression began several months ago following the of her paternal grandfather. The grandfather reportedly lived in her near [place], and the patient says that she regrets that she was unable to see him before he . She notes that her own father when she was 1, and although she was not familiar with the term surrogate, and could not clearly grasp the concept of one person substituting for another, she did indicate that her grandfather represented the major male figure in her life during childhood and it may be presumed that her grandfather served in some capacity as a surrogate father. Patient also indicates that marital difficulties mitigate, and she notes that she is currently from her . She attended several times during the admission evaluation that she would like a benzodiazepine for anxiety, and, as noted above, her toxicology screen at admission was positive for benzodiazepines. I have chosen to discontinue buspirone 15 mg 3 times daily, 1 of the patient's outpatient medications, at the patient's request. She indicates that she has not been taking this medication recently and does not find it helpful. She does, however, report that aripiprazole has been helpful. I spoke with her about increasing her dose of aripiprazole from 5 mg to 10 mg and then titrating further as indicated, the patient notes agreement. Material risks and anticipated benefits of aripiprazole were reviewed with the patient and she indicated understanding. (1) Suicidal ideation: 05/27/19 -The patient reports a history of multiple past suicide attempts by self cutting and by deliberate overdose of medications. She continues to report active suicidal ideation and admits to taking a deliberate overdose of trazodone on 05/25/2019, and 2 intending to kill herself by exsanguination subsequent to cutting herself with a sharp object (a piece of glass). -She had advised staff at admission to the behavioral health unit that she was considering harming herself on the unit. After discussing this further with her, the patient said that she understood that it would be important for her to agree not to physically harm herself on the unit and she said that she felt able to contract. However, she also says that she would intend to quickly kill her self where she allowed to leave the hospital at this point. -The patient has been admitted to the locked behavioral health unit, has been placed on suicide precautions, has been placed in an observation room directly across from the nursing station, and has been given a medically necessary private room. -We will encourage the patient to participate in individual, group and activity therapies as a way of developing improved individual coping strategies. Present on Admission?: Yes (2) Nonadherence to medication: 05/27/19 -The patient acknowledges a long history of nonadherence with psychiatric medications. For example, she tells us that although she has been prescribed buspirone she has stopped taking it a while back, and evidently did not notify her outpatient prescriber. -The patient does report that she takes aripiprazole because she feels that this medication "really helps," and a current strategy would be to stabilize the patient on aripiprazole and then convert to Abilify Sestina. Present on Admission?: Yes (3) Marijuana abuse: -: The patient asserts that she does not have any history of drug or alcohol abuse, she indirectly suggested that she "used to" drink heavily. Also, medical records from as recently as 2017 indicate that the patient has a known history of the abuse of several mood altering chemical substances including marijuana, c rack cocaine, and methamphetamine. When confronted with this information, the patient says that she only drinks occasionally, has not recently used cocaine or methamphetamine, but does use marijuana on a daily basis because "it really helps with my nerves." Present on Admission?: Yes (4) Psychosis: 05/27/19 -The patient indicates that she has been actively hallucinating since around March 2019, and reports that she also has a past history of episodes of auditory hallucinations. -Patient's current voices are depreciating and include command hallucinations that tell her to kill herself. She indicates that she does not know the source of these voices, does say that they comprise a man's voice in a woman's voice, and that she believes they are "real." -No systematized delusional beliefs were identified and the patient's thought content today. She does say, however, that her plan is to kill herself so that she can "be with" her late grandfather and, possibly, her late father. -We will increase the patient's outpatient dose of aripiprazole from 5 mg daily to 10 mg daily and titrate further as indicated. Present on Admission?: No Risk Factors Assessment Psychotic illness. History of multiple previous suicide attempts. Intellectual disability. Drug abuse. Limited individual coping strategies. Male: No : Yes Do You Have Access To A Gun?: No Health Problems: Yes Mental Health Diagnoses: Yes Substance Use Disorders: Yes Previous Attempt: Yes Previous Attempt; Highly Lethal: No Previous Attempt; Planned: Yes Previous Attempt; Didn't Tell Anyone: Yes Previous Psychiatric Hospitalization: Yes Hopelessness: Yes Smoker: No Protective Factors Assessment Employed: Yes ([employer]) Psychiatric History Identifying Data VIRGINIA GREEN is a 23-year-old F who currently lives in [] [alone] with [], has a history of [], and was admitted on 05/27/19 01:13 on a [201 voluntary] [302 involuntary] commitment for []. Chief Complaint "Suicide". History of Present Illness The patient is a 23-year-old woman who is well-known to psychiatry and has a history of multiple previous psychiatric hospitalizations. She was brought to the emergency room last night after she called 911 at the recommendation of her blended case checker. The patient reports that on the night of 05/25/2019 she consumed alcohol and took an overdose of an unspecified number of trazodone tablets. She did not come to medical attention at the time, but the following day, 05/26/2019, she began to cut herself with a piece of broken glass. She says that her desire had been to "cut deeper" but the glass piece was too small and, instead, she decided to speak with her case checker and then to come to the hospital for further evaluation and treatment. The patient's report is that she has been "severely" depressed since the of her beloved paternal grandfather several months ago. The patient reports that her own father when she was 1, and that for many years her grandfather served as a surrogate father. Subsequent to her grandfather's she has had repeated thoughts of killing herself so that she could "join him" and "see him again." The patient has a history of multiple suicide attempts over the years. These have included attempts by self cutting, and, more frequently, by overdose. She notes that on most or even all of these occasions she planned the overdose, did not tell anyone, but simply "woke up" after a number of hours. Complicating the clinical picture is the fact that the patient is intellectually disabled. She is , but is currently from her and is at least temporarily living with her mother. Past Psychiatric History Previous Psych History: The patient estimates that she has had 4 or 5 previous psychiatric hospitalizations. She reports that she has had "2 or 3, or maybe more" hospitalizations at "[place] [facility]" ([place], [place]) for depression and "suicide." She also indicates that she has had at least 2 psychiatric hospitalizations at [facility]. Over the years, she has taken a number of psychiatric medications and says that she cannot think of any medication that she has taken that has been particularly helpful. However, she does offer that she feels that Abilify "really helps." She is also taken buspirone 15 mg 3 times a day, but feels fairly strongly that this medication does not help "at all." As noted above, the patient had been prescribed trazodone and, is also noted, had taken a deliberate overdose of this medication on the night of 05/25/2019. Current Psychiatric Diagnosis: Schizoaffective, depressed Outpatient Services: The patient reportedly has been followed at [facility] in [facility]. Do You Have Access To A Gun?: No History of Previous Suicide Attempt: Yes Describe Attempts in the Past: 2018 OD,"tried cutting myself before" Past Medication Trials: Records indicate that past medications have included, but evidently are not limited to, aripiprazole, mirtazapine, buspirone, trazodone, and paroxetine. Past Head Trauma/Neuro History History of Concussion/Seizure: No Allergies Allergy/AdvReac Type Severity Reaction Status Date / Time [place] And Derivatives Allergy Severe HIVES Verified 02/15/19 17:15 aspirin Allergy Intermediate HIVES Verified 02/15/19 17:15 bee venom protein (honey bee) Allergy Unknown unknown Verified 02/15/19 17:15 lactose Allergy Unknown . Verified 02/15/19 17:15 Home Medications Home Medications Medication Instructions Recorded Confirmed Type fluticasone propionate [Flonase 2 spray INTRANASAL DAILY PRN 04/16/18 05/26/19 History Allergy Relief] loratadine 10 mg PO DAILY 04/16/18 05/26/19 History polyethylene glycol 3350 17 g PO DAILY PRN 04/16/18 05/26/19 History albuterol sulfate [Ventolin HFA] 2 puff INHALATION QID PRN 12/01/18 05/26/19 History hydroxyzine HCl 25 mg PO Q4H PRN #12 tab 01/13/19 05/26/19 Rx ondansetron HCl [Zofran] 4 mg PO QID PRN 01/15/19 05/26/19 History trihexyphenidyl 2 mg PO BID 01/15/19 05/26/19 History aripiprazole [Abilify] 5 mg PO DAILY 02/15/19 05/26/19 History buspirone 15 mg PO TID 02/15/19 05/26/19 History desogestrel-ethinyl estradiol 1 tab PO DAILY 02/15/19 05/26/19 History [Cyclessa (28)] levothyroxine 50 mcg PO DAILY 02/15/19 05/26/19 History metformin 500 mg PO BID 02/15/19 05/26/19 History Family History Family History of: None Alcohol History Hx of Alcohol Use Over the Past 12 Months: Yes ("Social alcohol" less than monthly) AUDIT Total Score: 2 Smoking Use Have You Smoked or Used Tobacco Products in the Last 30 Days: Yes tobacco type: cigarettes Smoking Status: Current every day smoker Smoking packs per day: 2 Substance History Hx of Prescription Med Misuse Over the Past 12 Months: No Hx of Over the Counter Med Misuse Over the Past 12 Months: No Hx of Inhalent Misuse Over the Past 12 Months: No Hx of Organic Substance Use Over the Past 12 Months: Yes ("Marijuana once in a while" less than daily/ maybe weekly) Hx of Illegal Substances/Street Drug Use Over Past 12 Months: No Problems as a Result of Past Substance Use: None Identified, Attempted Suicide and Other (The patient tells us that she has no history of substance misuse. However, old records indicate that she has a history of abuse of several chemical substances, including alcohol, "crack" cocaine, and methamphetamine.) Personal History Living Arrangements: Apartment Living Arrangements Comments: Patient reports that she lives with her mother. She is currently estranged from her . Born In: [facility] Highest Grade Completed: High School Graduate Highest Grade Completed Comment: Patient reports that she was in special education classes and has a learning disability. She tells us that she "does not read good," and when asked how much change she should expect if she buys something the cost $0.80 and hands the advice clerk a dollar, she repeatedly states (after several trials) "I am not good at math. I do not now." She also claims that she cannot subtract 8 from 10. Employment Status: Disabled Marital Status: Beliefs That Will Affect Care: None Current Legal Problems: No Patient History Medical History Anxiety (Chronic) Bipolar II disorder (Chronic) Hyperinsulinemia (Chronic) Hypothyroidism (Chronic) Marijuana abuse (Chronic) Family History Mother Diabetes Social History Preferred Language: Belarusian Communication Ability: Effective Accounts Payable Supervisor Required: No Beliefs That Will Affect Care: None Current Living Situation: Parent Current Living Situation Comment: lives with mom Feels Safe at Home: Yes Smoking Status: Current every day smoker Tobacco Type: cigarettes ; Cigarettes Per Day: 20 ; Hx Alcohol Use: No Hx Substance Use: No Review of Systems Review of Systems: All systems reviewed & are unremarkable except as noted in HPI & below The emergency room somatic history, review of systems, and physical examination completed by Dr. Isabel Hanson has been reviewed and is accepted for purposes of medical clearance to the behavioral health unit. Physical Exam Psychiatric: Orientation: alert and oriented x 3 Apperance: + disheveled Eye Contact: + poor eye contact Motor Behavior: + psychomotor retardation Patient offers little information spontaneously, and tends to answer in short, slowly delivered sentences that are marked by hesitation and what appears to be some word finding difficulty. Affect: + blunted affect Mood: + depressed mood Thought Process: + concrete thought process Thought Content: reality based without delusions Patient reports that she is actively suicidal. She does agree to contract for safety in the hospital, but says that her intent would be to kill herself where she to be discharged at this time. Homicidal Thoughts: denies homicidal thoughts Records indicate that the patient has a past history of homicidal thoughts. Her assertion is that she has never caused physical harm to the person or property of others Hallucinations: + auditory hallucinations Patient reports that she experiences derogatory command hallucinations. Specifically, she says "I hear a man's voice and a woman's vo ice. I do not know who they are, but they tell me to kill myself. They say I am no good." It was difficult to formally test the patient's memory. She is very vague about her past history and seems to use the phrase "I do not know" as a substitute for "I do not want to think about it." Estimated Intelligence: + below average estimated intelligence Insight: + limited insight Judgement: + poor judgement Vital Signs (Past 24 Hours): Last Vital Signs Temp 36.7 C 05/27/19 06:00 Pulse 80 05/27/19 07:03 Resp 16 05/27/19 06:00 BP 125/83 05/27/19 07:03 Pulse Ox 98 05/27/19 01:51 Results & Data Laboratory Results Laboratory Results - last 24 hr 05/26/19 05/26/19 05/26/19 21:41 21:41 21:41 WBC 11.10 H RBC 4.69 Hgb 13.9 Hct 40.3 MCV 85.9 MCH 29.6 MCHC 34.5 RDW Std Deviation 41.7 RDW Coeff of Reynold 13.2 Plt Count 287 MPV 9.2 Immature Gran % (Auto) 0.3 Neut % (Auto) 67.5 Lymph % (Auto) 27.0 [place] % (Auto) 3.4 Eos % (Auto) 1.7 Baso % (Auto) 0.1 Immature Gran # (Auto) 0.03 H Neut # (Auto) 7.49 H Lymph # (Auto) 3.00 [place] # (Auto) 0.38 Eos # (Auto) 0.19 Baso # (Auto) 0.01 Sodium 139 Potassium 3.7 Chloride 110 H Carbon Dioxide 23 Anion Gap 6.0 BUN 10 Creatinine 0.77 Est Cr Clr Drug Dosing Not Reportable Est GFR ( Amer) 124.4 Est GFR (Non-Af Amer) 107.3 BUN/Creatinine Ratio 12.9 Glucose 86 Calcium 9.2 Total Bilirubin 0.2 AST 11 L ALT 19 Alkaline Phosphatase 85 Total Protein 7.5 Albumin 3.8 Globulin 3.7 Albumin/Globulin Ratio 1.0 TSH 2.320 Urine Color Urine Appearance Urine pH Ur Specific [place] Urine Protein Urine Glucose (UA) Urine Ketones Urine Blood Urine Nitrite Urine Bilirubin Urine Urobilinogen Ur Leukocyte Esterase Urine WBC (Auto) Urine RBC (Auto) U Hyaline Cast (Auto) U Epithel Cells (Auto) Urine Bacteria (Auto) POC Ur Test Salicylates 3.3 Urine Opiates Screen Ur Methadone, Qual Acetaminophen < 2 L Urine Barbiturates Ur Phencyclidine (PCP) U Amphetamin/Meth Scrn MDMA (Ecstasy) Screen U OH-Alprazolam Confrm U Benzodiazepines Scrn 7-Amino Clonazepam Ur Nordiazepam Confirm U OH-ethylflurazepam U Lorazepam Cnf GC/MS U Oxazepam Confm GC/MS Ur Temazepam Confirm U OH-Triazolam Confirm U OH-Midazolam Confirm Ur Cocaine Metabolite U Marijuana (THC) Screen U Marijuana THC Carboxy Drug Screen Comment Ethyl Alcohol mg/dL 05/26/19 05/26/19 05/26/19 21:41 23:20 Unknown WBC RBC Hgb Hct MCV MCH MCHC RDW Std Deviation RDW Coeff of Reynold Plt Count MPV Immature Gran % (Auto) Neut % (Auto) Lymph % (Auto) [place] % (Auto) Eos % (Auto) Baso % (Auto) Immature Gran # (Auto) Neut # (Auto) Lymph # (Auto) [place] # (Auto) Eos # (Auto) Baso # (Auto) Sodium Potassium Chloride Carbon Dioxide Anion Gap BUN Creatinine Est Cr Clr Drug Dosing Est GFR ( Amer) Est GFR (Non-Af Amer) BUN/Creatinine Ratio Glucose Calcium Total Bilirubin AST ALT Alkaline Phosphatase Total Protein Albumin Globulin Albumin/Globulin Ratio TSH Urine Color Urine Appearance Urine pH Ur Specific [place] Urine Protein Urine Glucose (UA) Urine Ketones Urine Blood Urine Nitrite Urine Bilirubin Urine Urobilinogen Ur Leukocyte Esterase Urine WBC (Auto) Urine RBC (Auto) U Hyaline Cast (Auto) U Epithel Cells (Auto) Urine Bacteria (Auto) POC Ur Test Salicylates Urine Opiates Screen Neg Ur Methadone, Qual Neg Acetaminophen Urine Barbiturates Neg Ur Phencyclidine (PCP) Neg U Amphetamin/Meth Scrn Neg MDMA (Ecstasy) Screen Neg U OH-Alprazolam Confrm Pending U Benzodiazepines Scrn Pos H 7-Amino Clonazepam Pending Ur Nordiazepam Confirm Pending U OH-ethylflurazepam Pending U Lorazepam Cnf GC/MS Pending U Oxazepam Confm GC/MS Pending Ur Temazepam Confirm Pending U OH-Triazolam Confirm Pending U OH-Midazolam Confirm Pending Ur Cocaine Metabolite Neg U Marijuana (THC) Screen Pos H U Marijuana THC Carboxy Pending Drug Screen Comment Pending Ethyl Alcohol mg/dL < 3.0 05/26/19 05/26/19 Unknown Unknown WBC RBC Hgb Hct MCV MCH MCHC RDW Std Deviation RDW Coeff of Reynold Plt Count MPV Immature Gran % (Auto) Neut % (Auto) Lymph % (Auto) [place] % (Auto) Eos % (Auto) Baso % (Auto) Immature Gran # (Auto) Neut # (Auto) Lymph # (Auto) [place] # (Auto) Eos # (Auto) Baso # (Auto) Sodium Potassium Chloride Carbon Dioxide Anion Gap BUN Creatinine Est Cr Clr Drug Dosing Est GFR ( Amer) Est GFR (Non-Af Amer) BUN/Creatinine Ratio Glucose Calcium Total Bilirubin AST ALT Alkaline Phosphatase Total Protein Albumin Globulin Albumin/Globulin Ratio TSH Urine Color Yellow Urine Appearance Cloudy A Urine pH 5.0 Ur Specific [place] 1.019 Urine Protein Negative Urine Glucose (UA) Negative Urine Ketones Negative Urine Blood 2+ H Urine Nitrite Negative Urine Bilirubin Negative Urine Urobilinogen Negative Ur Leukocyte Esterase Trace H Urine WBC (Auto) 10-30 H Urine RBC (Auto) 5-10 H U Hyaline Cast (Auto) 0 U Epithel Cells (Auto) >30 H Urine Bacteria (Auto) 2+ H POC Ur Test NEG Salicylates Urine Opiates Screen Ur Methadone, Qual Acetaminophen Urine Barbiturates Ur Phencyclidine (PCP) U Amphetamin/Meth Scrn MDMA (Ecstasy) Screen U OH-Alprazolam Confrm U Benzodiazepines Scrn 7-Amino Clonazepam Ur Nordiazepam Confirm U OH-ethylflurazepam U Lorazepam Cnf GC/MS U Oxazepam Confm GC/MS Ur Temazepam Confirm U OH-Triazolam Confirm U OH-Midazolam Confirm Ur Cocaine Metabolite U Marijuana (THC) Screen U Marijuana THC Carboxy Drug Screen Comment Ethyl Alcohol mg/dL Current Inpatient Medications Current Inpatient Medications: Current Inpatient Medications Acetaminophen (Tylenol) 650 mg PO Q4H PRN PRN Reason: Headache or Minor Fever Stop: 06/26/19 02:03 Al Hydrox/Mg Hydrox/Simethicone (Maalox) 30 ml PO Q4H PRN PRN Reason: GI Upset Stop: 06/26/19 02:03 Aripiprazole (Abilify) 10 mg PO QAM [facility] Stop: 06/26/19 14:44 Fluticasone Propionate (Flonase) 2 sprays NA DAILY PRN PRN Reason: Congestion Stop: 06/27/19 08:59 Hydroxyzine HCl (Vistaril) 50 mg PO HSZ PRN PRN Reason: Insomnia Stop: 06/26/19 02:03 Hydroxyzine HCl (Vistaril) 25 mg PO Q4H PRN PRN Reason: Anxiety Stop: 06/26/19 02:03 Loratadine (Claritin) 10 mg PO QAM RIKKI Stop: 06/26/19 14:44 Magnesium Hydroxide (Milk Of Magnesia) 30 ml PO DAILY PRN PRN Reason: Constipation Stop: 06/26/19 02:03 Metformin HCl (Glucophage) 500 mg PO BIDM RIKKI Stop: 06/26/19 17:44 Ondansetron HCl (Zofran Tab) 4 mg PO QID PRN PRN Reason: Nausea Stop: 06/26/19 14:43 Polyethylene Glycol (Miralax Powder Packet) 17 gm PO DAILY PRN PRN Reason: Constipation Stop: 06/26/19 14:35 Sodium Chloride (Christian Nasal) 1 - 2 sprays NA PRN PRN PRN Reason: Nasal Dryness/Congestion Stop: 06/26/19 02:03 Trihexyphenidyl HCl (Artane) 2 mg PO BID RIKKI Stop: 06/26/19 20:59
[2019-05-27] MEDS: ARIPiprazole 10 MG TAB PO SCH (15:35)
[2019-05-27] MEDS: LORATADINE 10 MG TAB PO SCH (15:35)
[2019-05-27] MEDS: METFORMIN HCL 500 MG TAB PO SCH (17:29)
[2019-05-27] MEDS ORDERED: NICOTINE POLACRILEX 2 MG GUM MT PRN (20:04)
[2019-05-27] MEDS: TRIHEXYPHENIDYL HCL 2 MG TAB PO SCH (21:20)
[2019-05-27] MEDS: NICOTINE 21 MG/24 HR TDSY TD SCH (21:22)
[2019-05-27] MEDS ORDERED: QUETIAPINE FUMARATE 25 MG TABLET PO ONE (21:30)
[2019-05-28 08:02] LABS: Chol HDL Ratio 3; Cholesterol 159 mg/dl (0-200); HDL Cholesterol 54 mg/dl; LDL Cholesterol Calculated 67 mg/dl; Triglycerides 188 mg/dl (0-150); VLDL Cholesterol 38 mg/dl
[2019-05-28] MEDS: ARIPiprazole 10 MG TAB PO SCH (09:43)
[2019-05-28] MEDS: TRIHEXYPHENIDYL HCL 2 MG TAB PO SCH ×2 (09:43→21:11)
[2019-05-28] MEDS: LEVOTHYROXINE SODIUM 50 MCG TABLET PO SCH (09:43)
[2019-05-28] MEDS: LORATADINE 10 MG TAB PO SCH (09:43)
[2019-05-28] MEDS: METFORMIN HCL 500 MG TAB PO SCH ×2 (09:43→17:21)
[2019-05-28] MEDS: NICOTINE 21 MG/24 HR TDSY TD SCH (09:48)
--- NOTE | 2019-05-28 10:12 | Psychiatric Progress Note ---
Date of Service May 28, 2019 Impression / Recommendations Impression This 23-year-old woman presents with a prior diagnosis of schizo affective disorder, depressed, as well as a history of multiple previous psychiatric hospitalizations that reportedly are variously precipitated by suicidal or homicidal threats, or by actual suicide attempts. She reports that on the evening of 05/25/2019 she drank alcohol and took a deliberate overdose of trazodone with the intent to end her life. She did not tell anyone that she had done this, and then woke up the next morning without lingering negative affect. Later on the day of 05/26/2019 she again began to experience active suicidal thoughts and attempted to commit suicide by self cutting. She said that she attempted to use a piece of glass, but realized that the glass piece was too small to allow her to cut deeply. (She did not offer and explanation as to why she did not secure a larger piece of glass by breaking a glass object in her home.) Subsequent to that, she got in touch with her "blended porter sample case," and evidently reported the suicide attempts/active suicidal ideation. Patient says that she was advised by the blended porter sample case to call 911 and asked to be transported to [facility]'s emergency department for further evaluation. In the emergency department, she continued to voice active suicidal ideation and refused to contract for safety outside of the hospital. There is a known history of the abuse of mood altering chemical substances, including "crack" cocaine and methamphetamine. She acknowledges regular use of marijuana, and her tox screen at admission was positive for benzodiazepines (evidently not currently prescribed) and cannabinoids. Patient asserts that her recurrent episode of depression began several months ago following the of her paternal grandfather. The grandfather reportedly lived in her near [place], and the patient says that she regrets that she was unable to see him before he . She notes that her own father when she was 1, and although she was not familiar with the term surrogate, and could not clearly grasp the concept of one person substituting for another, she did indicate that her grandfather represented the major male figure in her life during childhood and it may be presumed that her grandfather served in some capacity as a surrogate father. Patient also indicates that marital difficulties mitigate, and she notes that she is currently from her . She attended several times during the admission evaluation that she would like a benzodiazepine for anxiety, and, as noted above, her toxicology screen at admission was positive for benzodiazepines. I have chosen to discontinue buspirone 15 mg 3 times daily, 1 of the patient's outpatient medications, at the patient's request. She indicates that she has not been taking this medication recently and does not find it helpful. She does, however, report that aripiprazole has been helpful. I spoke with her about increasing her dose of aripiprazole from 5 mg to 10 mg and then titrating further as indicated, the patient notes agreement. Material risks and anticipated benefits of aripiprazole were reviewed with the patient and she indicated understanding. (1) Suicidal ideation: 05/27/19 -The patient reports a history of multiple past suicide attempts by self cutting and by deliberate overdose of medications. She continues to report active suicidal ideation and admits to taking a deliberate overdose of trazodone on 05/25/2019, and 2 intending to kill herself by exsanguination subsequent to cutting herself with a sharp object (a piece of glass). -She had advised staff at admission to the behavioral health unit that she was considering harming herself on the unit. After discussing this further with her, the patient said that she understood that it would be important for her to agree not to physically harm herself on the unit and she said that she felt able to contract. However, she also says that she would intend to quickly kill her self where she allowed to leave the hospital at this point. -The patient has been admitted to the locked behavioral health unit, has been placed on suicide precautions, has been placed in an observation room directly across from the nursing station, and has been given a medically necessary private room. -We will encourage the patient to participate in individual, group and activity therapies as a way of developing improved individual coping strategies. 05/28 -Patient reporting reduced suicidal impulses but unable to convincingly contract for safety this morning (2) Nonadherence to medication: 05/27/19 -The patient acknowledges a long history of nonadherence with psychiatric medications. For example, she tells us that although she has been prescribed buspirone she has stopped taking it a while back, and evidently did not notify her outpatient prescriber. -The patient does report that she takes aripiprazole because she feels that this medication "really helps," and a current strategy would be to stabilize the patient on aripiprazole and then convert to Abilify Sestina. (3) Marijuana abuse: -: The patient asserts that she does not have any history of drug or alcohol abuse, she indirectly suggested that she "used to" drink heavily. Also, medical records from as recently as 2017 indicate that the patient has a known history of the abuse of several mood altering chemical substances including marijuana, crack cocaine, and methamphetamine. When confronted with this information, the patient says that she only drinks occasionally, has not recently used cocaine or methamphetamine, but does use marijuana on a daily basis because "it really helps with my nerves." (4) Psychosis: 05/27/19 -The patient indicates that she has been actively hallucinating since around March 2019, and reports that she also has a past history of episodes of auditory hallucinations. -Patient's current voices are depreciating and include command hallucinations that tell her to kill herself. She indicates that she does not know the source of these voices, does say that they comprise a man's voice in a woman's voice, and that she believes they are "real." -No systematized delusional beliefs were identified and the patient's thought content today. She does say, however, that her plan is to kill herself so that she can "be with" her late grandfather and, possibly, her late father. -We will increase the patient's outpatient dose of aripiprazole from 5 mg daily to 10 mg daily and titrate further as indicated. 05/28 -Tolerating increased dose of Abilify without difficulty so far -We will temporarily continue the Seroquel 50 mg p.o. nightly for sleep and anxiety. Reviewed antipsychotic polypharmacy nonpreferred however she declined option to utilize the Seroquel as a stand-alone antipsychotic at higher dose. As goal of conversion to long-acting injectable is not a feasible option with the Seroquel alone, temporary augmenting use of the additional antipsychotic appears reasonable however this should be reconsidered on a longer-term basis as an outpatient. Risk Factors Assessment Male: No : Yes Do You Have Access To A Gun?: No Health Problems: Yes Mental Health Diagnoses: Yes Substance Use Disorders: Yes Previous Attempt: Yes Previous Attempt; Highly Lethal: No Previous Attempt; Planned: Yes Previous Attempt; Didn't Tell Anyone: Yes Previous Psychiatric Hospitalization: Yes Hopelessness: Yes Smoker: No Protective Factors Assessment Employed: Yes ([employer]) Interval History Chief Complaint " I feel okay". Review of Systems Notes Denies sedation or dizziness this morning Sleep Information Total Hours of Sleep: 7 Meal Information Percent Meal Consumed - Breakfast: 10 Percent Meal Consumed - Lunch: 20 Percent Meal Consumed - Dinner: 100 Nutrition Comment: Pt c/o feeling nauseated Subjective Subjective Patient was seen & assessed and interval progress reviewed with treatment team. Abilify increased yesterday. She also will schedule a single dose of Seroquel 50 mg at bedtime last evening at her request for sleep. Staff report that she has been making frequent statements about means to harm herself. [facility] case management to visit Thursday. This morning she reports feeling "okay." When asked if she is experiencing ongoing impulses to self injure she states "kind of, not really." She reports that voices chronically tell her to cut herself and "do other things, bad things." She describes the voices as echoes in her head and outside of her head "that mess me up." She cannot identify any protective factors when asked how she would be able to keep herself safe at home but expresses desire for discharge. She cannot provide much medication history. Believes she has been on the Abilify for quite some time at 5 mg daily. No tolerability concerns so far on increased dose. Denies restlessness this morning. Physical Exam Psychiatric Orientation: alert and + guarded Apperance: + disheveled Eye Contact: + fair eye contact Motor Behavior: steady gait and station language unsophisticated Affect: + blunted affect (during interview) and + labile affect (prior to interview. observed smiling and yelling "what's up bitch?"on phone) "ok" Thought Process: + concrete thought process Thought Content: + delusional Suicidal Thoughts: + reports suicidal thoughts Hallucinations: + auditory hallucinations; no visual hallucinations Estimated Intelligence: + below average estimated intelligence Vital Signs (Past 24 Hours) Last Vital Signs Temp 36.6 C 05/28/19 06:00 Pulse 85 05/28/19 06:40 Resp 16 05/28/19 06:00 BP 112/78 05/28/19 06:40 Pulse Ox 98 05/27/19 01:51 Results & Data Laboratory Results Laboratory Results - last 24 hr 05/28/19 07:09 Triglycerides 188 H Cholesterol 159 LDL Cholesterol, Calc 67 VLDL Cholesterol, Calc 38 HDL Cholesterol 54 Cholesterol/HDL Ratio 3 Current Inpatient Medications Current Inpatient Medications: Current Inpatient Medications Acetaminophen (Tylenol) 650 mg PO Q4H PRN PRN Reason: Headache or Minor Fever Stop: 06/26/19 02:03 Al Hydrox/Mg Hydrox/Simethicone (Maalox) 30 ml PO Q4H PRN PRN Reason: GI Upset Stop: 06/26/19 02:03 Aripiprazole (Abilify) [facility] [place] Stop: 06/26/19 15:14 Last Admin: 05/28/19 09:43 Dose: 10 mg Documented by: Fluticasone Propionate (Flonase) 2 sprays NA DAILY PRN PRN Reason: Congestion Stop: 06/27/19 08:59 Hydroxyzine HCl (Vistaril) 50 mg PO HSZ PRN PRN Reason: Insomnia Stop: 06/26/19 02:03 Hydroxyzine HCl (Vistaril) 25 mg PO Q4H PRN PRN Reason: Anxiety Stop: 06/26/19 02:03 Levothyroxine Sodium (Synthroid) 50 mcg PO DAILYBB [facility] Stop: 06/27/19 07:59 Last Admin: 05/28/19 09:43 Dose: 50 mcg Documented by: Loratadine (Claritin) 10 mg [facility] [place] Stop: 06/26/19 15:14 Last Admin: 05/28/19 09:43 Dose: 10 mg Documented by: Magnesium Hydroxide (Milk Of Magnesia) 30 ml PO DAILY PRN PRN Reason: Constipation Stop: 06/26/19 02:03 Metformin HCl (Glucophage) 500 mg PO BIDM [facility] Stop: 06/26/19 17:44 Last Admin: 05/28/19 09:43 Dose: 500 mg Documented by: Miscellaneous (Remove Nicoderm Patch) 1 ea N/A DAILY@[id number] [facility] Stop: 06/28/19 08:58 Nicotine (Nicoderm Cq) 21 mg TD [facility] [place] Stop: 06/27/19 08:59 Last Admin: 05/28/19 09:48 Dose: 21 mg Documented by: Nicotine Polacrilex (Nicorette 2mg) 1 piece MT Q2H PRN PRN Reason: Nicotine withdrawal Stop: 06/26/19 20:03 Ondansetron HCl (Zofran Tab) 4 mg PO QID PRN PRN Reason: Nausea Stop: 06/26/19 14:43 Last Admin: 05/28/19 09:16 Dose: 4 mg Documented by: Polyethylene Glycol (Miralax Powder Packet) 17 gm PO DAILY PRN PRN Reason: Constipation Stop: 06/26/19 14:35 Sodium Chloride ([place] Nasal) 1 - 2 sprays NA PRN PRN PRN Reason: Nasal Dryness/Congestion Stop: 06/26/19 02:03 Trihexyphenidyl HCl (Artane) 2 mg PO BID RIKKI Stop: 06/26/19 20:59 Last Admin: 05/28/19 09:43 Dose: 2 mg Documented by: Mental Health & Subst Abuse Tx Psychiatrist Name of Psychiatrist: EMMA Toña Nash Psychiatrist's Date of Appointment with Psychiatrist: 06/06/19 Time of Appointment with Psychiatrist: 9:45 a.m. Psychiatric Appointment Comment: [address] [facility] [place] [address] Therapist Name of Therapist: EMMA Toña Ye Therapist's Date of Therapist Appointment: 06/02/19 Time of Therapist Appointment: 11:00 a.m. Therapy Appointment Comment: [address] [place] [address] [employer] Name of Local [employer] Driver: Jade Parker Phone Number for [employer]: [phone] Post Discharge Appointments Primary Care Physician Name Of Family Doctor: Wolfgang Gallagher Primary Care Provider Appointment Comment: [address] [facility] [place] [address] Contact Information Discharge Discharge Address: [address] [facility] [place] [place] [address]
[2019-05-28] MEDS: ACETAMINOPHEN 325 MG TAB PO PRN ×2 (14:09→20:09)
[2019-05-28] MEDS: QUETIAPINE FUMARATE 25 MG TABLET PO SCH (21:11)
[2019-05-29 05:30] LABS: 7-Aminoclonaz, Confirm NEGATIVE ng/mL (<25); Hydro-Alp Ur, GC/MS NEGATIVE ng/mL (<25); Hydroxyethylflurazepam, Conf NEGATIVE ng/mL (<50); Hydroxytriazolam NEGATIVE ng/mL (<50); Lorazepam, Ur GC/MS NEGATIVE ng/mL (<50); Marijuana Quant, GCMS Urine 196 ng/mL (<5); Nordiazepam, Confirm 57 ng/mL (<50); Oxazepam Ur, GC/MS 243 ng/mL (<50); Temazepam, Confirm 109 ng/mL (<50)
[2019-05-29] MEDS: ARIPiprazole 10 MG TAB PO SCH (09:16)
[2019-05-29] MEDS: LORATADINE 10 MG TAB PO SCH (09:16)
[2019-05-29] MEDS: METFORMIN HCL 500 MG TAB PO SCH ×2 (09:16→17:25)
[2019-05-29] MEDS: LEVOTHYROXINE SODIUM 50 MCG TABLET PO SCH (09:16)
[2019-05-29] MEDS: TRIHEXYPHENIDYL HCL 2 MG TAB PO SCH ×2 (09:16→21:26)
[2019-05-29] MEDS: NICOTINE 21 MG/24 HR TDSY TD SCH (09:25)
--- NOTE | 2019-05-29 14:41 | Psychiatric Progress Note ---
Date of Service May 29, 2019 Impression / Recommendations Impression This 23-year-old woman presents with a prior diagnosis of schizo affective disorder, depressed, as well as a history of multiple previous psychiatric hospitalizations that reportedly are variously precipitated by suicidal or homicidal threats, or by actual suicide attempts. She reports that on the evening of 05/25/2019 she drank alcohol and took a deliberate overdose of trazodone with the intent to end her life. She did not tell anyone that she had done this, and then woke up the next morning without lingering negative affect. Later on the day of 05/26/2019 she again began to experience active suicidal thoughts and attempted to commit suicide by self cutting. She said that she attempted to use a piece of glass, but realized that the glass piece was too small to allow her to cut deeply. (She did not offer and explanation as to why she did not secure a larger piece of glass by breaking a glass object in her home.) Subsequent to that, she got in touch with her "blended case therapist," and evidently reported the suicide attempts/active suicidal ideation. Patient says that she was advised by the blended case therapist to call 911 and asked to be transported to [facility]'s emergency department for further evaluation. In the emergency department, she continued to voice active suicidal ideation and refused to contract for safety outside of the hospital. There is a known history of the abuse of mood altering chemical substances, including "crack" cocaine and methamphetamine. She acknowledges regular use of marijuana, and her tox screen at admission was positive for benzodiazepines (evidently not currently prescribed) and cannabinoids. Patient asserts that her recurrent episode of depression began several months ago following the of her paternal grandfather. The grandfather reportedly lived in her near [place], and the patient says that she regrets that she was unable to see him before he . She notes that her own father when she was 1, and although she was not familiar with the term surrogate, and could not clearly grasp the concept of one person substituting for another, she did indicate that her grandfather represented the major male figure in her life during childhood and it may be presumed that her grandfather served in some capacity as a surrogate father. Patient also indicates that marital difficulties mitigate, and she notes that she is currently from her . She attended several times during the admission evaluation that she would like a benzodiazepine for anxiety, and, as noted above, her toxicology screen at admission was positive for benzodiazepines. I have chosen to discontinue buspirone 15 mg 3 times daily, 1 of the patient's outpatient medications, at the patient's request. She indicates that she has not been taking this medication recently and does not find it helpful. She does, however, report that aripiprazole has been helpful. I spoke with her about increasing her dose of aripiprazole from 5 mg to 10 mg and then titrating further as indicated, the patient notes agreement. Material risks and anticipated benefits of aripiprazole were reviewed with the patient and she indicated understanding. (1) Suicidal ideation: 05/27/19 -The patient reports a history of multiple past suicide attempts by self cutting and by deliberate overdose of medications. She continues to report active suicidal ideation and admits to taking a deliberate overdose of trazodone on 05/25/2019, and 2 intending to kill herself by exsanguination subsequent to cutting herself with a sharp object (a piece of glass). -She had advised staff at admission to the behavioral health unit that she was considering harming herself on the unit. After discussing this further with her, the patient said that she understood that it would be important for her to agree not to physically harm herself on the unit and she said that she felt able to contract. However, she also says that she would intend to quickly kill her self where she allowed to leave the hospital at this point. -The patient has been admitted to the locked behavioral health unit, has been placed on suicide precautions, has been placed in an observation room directly across from the nursing station, and has been given a medically necessary private room. -We will encourage the patient to participate in individual, group and activity therapies as a way of developing improved individual coping strategies. 05/28 -Patient reporting reduced suicidal impulses but unable to convincingly contract for safety this morning 05/29 -Patient continues to demonstrate self-injurious impulses (however these do appear rather chronic) -Encouraging participation in therapeutic programming to improve coping -Reviewed behavioral expectations as above. If she continues to check exterior doors her room will be moved near the nursing station. Continue elopement precautions. (2) Nonadherence to medication: 05/27/19 -The patient acknowledges a long history of nonadherence with psychiatric medications. For example, she tells us that although she has been prescribed buspirone she has stopped taking it a while back, and evidently did not notify her outpatient prescriber. -The patient does report that she takes aripiprazole because she feels that this medication "really helps," and a current strategy would be to stabilize the patient on aripiprazole and then convert to Abilify Sestina. 05/29 -Patient now refusing to consider Depo antipsychotic (3) Marijuana abuse: -: The patient asserts that she does not have any history of drug or alcohol abuse, she indirectly suggested that she "used to" drink heavily. Also, medical records from as recently as 2017 indicate that the patient has a known history of the abuse of several mood altering chemical substances including marijuana, crack cocaine, and methamphetamine. When confronted with this information, the patient says that she only drinks occasionally, has not recently used cocaine or methamphetamine, but does use marijuana on a daily basis because "it really helps with my nerves." (4) Psychosis: 05/27/19 -The patient indicates that she has been actively hallucinating since around March 2019, and reports that she also has a past history of episodes of auditory hallucinations. -Patient's current voices are depreciating and include command hallucinations that tell her to kill herself. She indicates that she does not know the source of these voices, does say that they comprise a man's voice in a woman's voice, and that she believes they are "real." -No systematized delusional beliefs were identified and the patient's thought content today. She does say, however, that her plan is to kill herself so that she can "be with" her late grandfather and, possibly, her late father. -We will increase the patient's outpatient dose of aripiprazole from 5 mg daily to 10 mg daily and titrate further as indicated. 05/28 -Tolerating increased dose of Abilify without difficulty so far -We will temporarily continue the Seroquel 50 mg p.o. nightly for sleep and anxiety. Reviewed antipsychotic polypharmacy nonpreferred however she declined option to utilize the Seroquel as a stand-alone antipsychotic at higher dose. As goal of conversion to long-acting injectable is not a feasible option with the Seroquel alone, temporary augmenting use of the additional antipsychotic appears reasonable however this should be reconsidered on a longer-term basis as an outpatient. 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 Random glucose was 86 on 05/26/2019. -Again reported good sleep with Seroquel. (5) Benzodiazepine abuse: 05/29 - Patient has given variable self-report regarding benzodiazepine abuse prior to hospitalization. - Advised against benzodiazepine use outside of the hospital due to associated risks. No evidence of benzodiazepine withdrawal Risk Factors Assessment Male: No : Yes Do You Have Access To A Gun?: No Health Problems: Yes Mental Health Diagnoses: Yes Substance Use Disorders: Yes Previous Attempt: Yes Previous Attempt; Highly Lethal: No Previous Attempt; Planned: Yes Previous Attempt; Didn't Tell Anyone: Yes Previous Psychiatric Hospitalization: Yes Hopelessness: Yes Smoker: No Protective Factors Assessment Employed: Yes ([employer]) Interval History Chief Complaint "I'll try harder". Review of Systems Notes Denies akathisia Sleep Information Total Hours of Sleep: 6.5 Meal Information Percent Meal Consumed - Breakfast: 10 Percent Meal Consumed - Lunch: 50 Percent Meal Consumed - Dinner: 100 Nutrition Comment: Pt c/o feeling nauseated Subjective Subjective Patient was seen & assessed and interval progress reviewed with treatment team. Patient demonstrated some difficult behaviors last evening. Continued exit seeking and requested discharge but declined to sign 72-hour notice. Asked for a meat lilliana last evening and when this was (obviously) denied to her she stated she wanted to be discharged to cut herself to bleed out "because it would look so pretty." At some point she indicated access to a stockpile of medications at home. On interview she acknowledges these behaviors but states she does not know why she does them. She does express perceived therapeutic benefit from being in the hospital and endorses a slight improvement in her mood since yesterday. She cannot articulate any specific changes in how she feels related to increased dose of Abilify so far. She acknowledges longstanding self-injurious impulses but does indicate that they have recently been more active and is not able to convincingly contract for safety outside of the structured environment yet today. She declines to consider Abilify Maintena stating that the last time she tried an injectable antipsychotic (appears likely Haldol Decanoate) she had a bad reaction to it. "It made me like a zombie." Discussed consideration for an anticonvulsant trial to help with her impulse dyscontrol and affect lability such as Depakote however she refused citing fear for hair loss. We discussed behavioral expectations on the unit and I advised her that if she continues to check the exit doors her room will be moved closer to the nursing station. She verbalized understanding and verbally contracted that she would discontinue this behavior. Physical Exam Psychiatric Orientation: alert and cooperative Apperance: appropriately dressed Eye Contact: + fair eye contact Motor Behavior: no abnormal motor movements Speech: normal rate/rhythm/volume of speech Use of language is unsophisticated Affect: + blunted affect; no tearful affect and no labile affect "Up and down" Thought Process: + concrete thought process Suicidal Thoughts: + reports suicidal thoughts and + reports suicidal plan ( Cutting) Estimated Intelligence: + below average estimated intelligence Insight: + limited insight Judgement: + limited judgement Vital Signs (Past 24 Hours) Last Vital Signs Temp 36.5 C 05/29/19 07:12 Pulse 52 L 05/29/19 07:12 Resp 16 05/29/19 07:12 BP 87/50 L 05/29/19 07:12 Pulse Ox 98 05/27/19 01:51 Results & Data Laboratory Results Laboratory Results - last 24 hr 05/26/19 23:20 U OH-Alprazolam Confrm NEGATIVE 7-Amino Clonazepam NEGATIVE Ur Nordiazepam Confirm 57 H U OH-ethylflurazepam NEGATIVE U Lorazepam Cnf GC/MS NEGATIVE U Oxazepam Confm GC/MS 243 H Ur Temazepam Confirm 109 H U OH-Triazolam Confirm NEGATIVE U OH-Midazolam Confirm NEGATIVE U Marijuana THC Carboxy 196 H Drug Screen Comment SEE NOTE Current Inpatient Medications Current Inpatient Medications: Current Inpatient Medications Acetaminophen (Tylenol) 650 mg PO Q4H PRN PRN Reason: Headache or Minor Fever Stop: 06/26/19 02:03 Last Admin: 05/28/19 20:09 Dose: 650 mg Documented by: Al Hydrox/Mg Hydrox/Simethicone (Maalox) 30 ml PO Q4H PRN PRN Reason: GI Upset Stop: 06/26/19 02:03 [facility]) [facility] [place] [facility] Stop: 06/26/19 15:14 Last Admin: 05/29/19 09:16 Dose: 10 mg Documented by: Fluticasone Propionate (Flonase) 2 sprays NA DAILY PRN PRN Reason: Congestion Stop: 06/27/19 08:59 Hydroxyzine HCl (Vistaril) 50 mg PO HSZ PRN PRN Reason: Insomnia Stop: 06/26/19 02:03 Hydroxyzine HCl (Vistaril) 25 mg PO Q4H PRN PRN Reason: Anxiety Stop: 06/26/19 02:03 Levothyroxine Sodium ([facility]throid) [facility] Stop: 06/27/19 07:59 Last Admin: 05/29/19 09:16 Dose: 50 mcg Documented by: Loratadine (Claritin) [facility] [place] Stop: 06/26/19 15:14 Last Admin: 05/29/19 09:16 Dose: 10 mg Documented by: Magnesium Hydroxide (Milk Of Magnesia) 30 ml PO DAILY PRN PRN Reason: Constipation Stop: 06/26/19 02:03 Metformin HCl (Glucophage) 500 mg PO BIDM [facility] Stop: 06/26/19 17:44 Last Admin: 05/29/19 09:16 Dose: 500 mg Documented by: Miscellaneous (Remove Nicoderm Patch) 1 ea N/A DAILY@[id number] [facility] Stop: 06/28/19 08:58 Last Admin: 05/29/19 09:25 Dose: 1 ea Documented by: Nicotine (Nicoderm Cq) 21 mg TD [facility] Stop: 06/27/19 08:59 Last Admin: 05/29/19 09:25 Dose: 21 mg Documented by: Nicotine Polacrilex (Nicorette 2mg) 1 piece MT Q2H PRN PRN Reason: Nicotine withdrawal Stop: 06/26/19 20:03 Ondansetron HCl (Zofran Tab) 4 mg PO QID PRN PRN Reason: Nausea Stop: 06/26/19 14:43 Last Admin: 05/28/19 09:16 Dose: 4 mg Documented by: Polyethylene Glycol (Miralax Powder Packet) 17 gm PO DAILY PRN PRN Reason: Constipation Stop: 06/26/19 14:35 Quetiapine Fumarate (Seroquel) 50 mg PO HS RIKKI Stop: 06/27/19 21:59 Last Admin: 05/28/19 21:11 Dose: 50 mg Documented by: Sodium Chloride (Park Nasal) 1 - 2 sprays NA PRN PRN PRN Reason: Nasal Dryness/Congestion Stop: 06/26/19 02:03 Trihexyphenidyl HCl (Artane) 2 mg PO BID RIKKI Stop: 06/26/19 20:59 Last Admin: 05/29/19 09:16 Dose: 2 mg Documented by: Mental Health & Subst Abuse [facility]x Psychiatrist Name of Psychiatrist: [facility] To[facility] Psychiatrist's Date of Appointment with Psychiatrist: 06/06/19 Time of Appointment with Psychiatrist: 9:45 a.m. Psychiatric Appointment Comment[facility] [address] [facility] [place] [address] Therapist Name of Therapist: [facility] Ye Therapist's Date of Therapist Appointment: 06/02/19 Time of Therapist Appointment: 11:00 a.m. Therapy Appointment Comment: [address] [facility] [place] [address] Clinic Nurse Name of Clinic Nurse: Jade Parker Phone Number for Clinic Nurse: [phone] Post Discharge Appointments Primary Care Physician Name Of Family Doctor: Wolfgang Gallagher Primary Care Provider Appointment Comment: [address] [facility] [place] [address] Other #1: Name of Aftercare Appointment: [facility] Phone Number of Aftercare Appointment: [phone] Aftercare Appointment Comment: Comes to your home on Tuesdays/Fridays Contact Information Discharge Discharge Address: [address], [facility] [place] [address]
[2019-05-29] MEDS: QUETIAPINE FUMARATE 25 MG TABLET PO SCH (21:26)
[2019-05-30] MEDS: LEVOTHYROXINE SODIUM 50 MCG TABLET PO SCH (07:50)
[2019-05-30] MEDS: ARIPiprazole 10 MG TAB PO SCH (08:40)
[2019-05-30] MEDS: METFORMIN HCL 500 MG TAB PO SCH (08:40)
[2019-05-30] MEDS: LORATADINE 10 MG TAB PO SCH (08:40)
[2019-05-30] MEDS: TRIHEXYPHENIDYL HCL 2 MG TAB PO SCH (08:40)
[2019-05-30] MEDS: NICOTINE 21 MG/24 HR TDSY TD SCH (08:41)
--- NOTE | 2019-05-30 11:18 | Discharge Summary ---
Date of Service May 30, 2019 History of Present Illness The patient is a 23-year-old woman who is well-known to psychiatry and has a history of multiple previous psychiatric hospitalizations. She was brought to the emergency room last night after she called 911 at the recommendation of her blended family caseworker. The patient reports that on the night of 05/25/2019 she consumed alcohol and took an overdose of an unspecified number of trazodone tablets. She did not come to medical attention at the time, but the following day, 05/26/2019, she began to cut herself with a piece of broken glass. She says that her desire had been to "cut deeper" but the glass piece was too small and, instead, she decided to speak with her family caseworker and then to come to the hospital for further evaluation and treatment. The patient's report is that she has been "severely" depressed since the of her beloved paternal grandfather several months ago. The patient reports that her own father when she was 1, and that for many years her grandfather served as a surrogate father. Subsequent to her grandfather's she has had repeated thoughts of killing herself so that she could "join him" and "see him again." The patient has a history of multiple suicide attempts over the years. These have included attempts by self cutting, and, more frequently, by overdose. She notes that on most or even all of these occasions she planned the overdose, did not tell anyone, but simply "woke up" after a number of hours. Complicating the clinical picture is the fact that the patient is intellectually disabled. She is , but is currently from her and is at least temporarily living with her mother. Physical Exam Psychiatric Orientation: alert, oriented x 3 and cooperative (only superficially) Apperance: appropriately dressed and + disheveled Eye Contact: good eye contact Motor Behavior: steady gait and station and no abnormal motor movements Speech: normal rate/rhythm/volume of speech (mostly nonspontaneous, brief responses to questions) Affect: + blunted affect Mood: no depressed mood and no anxious mood Thought Process: goal directed thought process and + concrete thought process Thought Content: reality based without delusions; no hopelessness Suicidal Thoughts: denies suicidal thoughts, denies suicidal plan and denies suicidal intent Homicidal Thoughts: denies homicidal thoughts Hallucinations: no auditory hallucinations and no visual hallucinations Cognition: attention grossly intact and language grossly intact Estimated Intelligence: + below average estimated intelligence Insight: + limited insight (likely chronic) Judgement: + limited judgement (likely chronic ) Vital Signs (Past 24 Hours) Last Vital Signs Temp 36.6 C 05/30/19 06:53 Pulse 103 H 05/30/19 06:54 Resp 16 05/30/19 06:53 BP 115/78 05/30/19 06:54 Pulse Ox 97 05/29/19 21:33 Principal Diagnosis - Historical diagnosis of schizoaffective disorder - Psychosis NOS - presenting with reports of auditory hallucinations - Marijuana abuse - Benzodiazepine abuse Psychiatric Data 23-year-old female admitted voluntarily for inpatient psychiatric treatment on 05/27/19 and has a prior diagnosis of schizoaffective disorder, depressed, as well as a history of multiple previous psychiatric hospitalizations that reportedly are variously precipitated by suicidal or homicidal threats, or by actual suicide attempts. On admission, the patient reported having taken a deliberate overdose of trazodone in combination with alcohol in attempt to end her life - stating this occurred on 05/25/19. She reported she did not tell anyone that she had done this, and then woke up the next morning without lingering negative affect. She reported recurrence of SI on 05/26/19, and began to experience active suicidal thoughts and attempted to commit suicide by self cutting. She reported that she attempted to use a piece of glass, but realized that the glass piece was too small to allow her to cut deeply. Pt stated that she then got in touch with her "blended family caseworker," and evidently reported the suicide attempts/active suicidal ideation. It was reported by the patient that she was advised to call 911 and present to the ED for evaluation. In the ED, the patient continued to voice active suicidal ideation and refused to contract for safety outside of the hospital. There is a known history of the abuse of mood altering chemical substances, including "crack" cocaine and methamphetamine. She had also acknowledged regular use of marijuana, and her toxicology screen at admission was positive for benzodiazepines (no evidence of current active prescription) and cannabinoids. Patient reported that her recurrent episode of depression began several months ago following the of her paternal grandfather. The grandfather reportedly lived near [place], and the patient was unable to see him before he . On admission, buspirone 15mg TID was discontinued, as patient stated she had not been taking the medication regularly and that she did not find it helpful. She did, however, verbalize previous response to aripiprazole and was restarted on this medication after review of risks, benefits, and side effects. Aripiprazole was titrated to a dose of 10mg qAM by the time of discharge. Fasting lipid panel was obtained and demonstrated hypertriglyceridemia at 188. Random glucose in the ED was 86. Due to reports of continued auditory hallucinations, insomnia, and anxiety - recommendation was made to trial quetiapine. Pt was agreeable with initiation and tolerated the medication well with reported improvement in sleep; however, was unwilling to consider cross-titration to quetiapine as monotherapy. Pt was informed that conversation to a single antipsychotic medication was recommended, and that it is recommended her current regimen should be evaluated further once symptoms are stable after discharge. Recommendation for conversation to Benito Rowland was made, and patient declined utilization of an long-acting injectable option. Over the course of the patient's admission, she did participate in group and recreational programming. Early in admission, patient continued to verbalize active self-injurious urges, even attempting at times to cut herself with various items (i.e. thread from her sweatshirt, bristle from her hairbrush). Staff continue to engage patient in processing these thoughts and urges, and offering healthier coping strategies to use as replacement behaviors. At time of discharge, patient is denying suicidal ideation and verbalizing motivation to reach out to supports prior to self harming attempts. Patient was able to verbalize basic aspects of her safety plan, and her mother was involved in a family meeting just prior to discharge. Safety and discharge plans were reviewed during the meeting, and mother reported feeling comfortable with patient being discharged at this time. Appropriate outpatient providers were contacted and appointments were confirmed to allow for timely follow-up after hospital discharge. Based on review of patient's case and their current presentation, risk of harm to self or others is no longer perceived to be acute. Management of symptoms on an outpatient basis seems the most appropriate and least restrictive setting. Pt seems appropriate for discharge with recommendation for consistent follow-up with outpatient psychiatric prescriber, therapist, mobile medication management team, and family caseworker. Pt verbalized understanding of discharge plan reviewed and is agreeable with plan to be discharged home today. Day of Discharge Assessment Patient's case was reviewed and discussed during treatment team. Staff report the patient has continued to verbalize improvement in her condition over the course of her admission. Patient has made her request for discharge today known. Patient's mother is reportedly coming to the unit for a meeting this morning. Patient was seen today to assess readiness for discharge. She inquires of this provider, "Is there any chance I can go home today?" Patient does report feeling ready for discharge today, and is hopeful to leave with her mother after their meeting this morning. Was some encouragement, patient is able to verbalize specific changes that she has noticed in her mood/thoughts since admission. Patient does feel that she has noticed some improvement in her mood, and negative thoughts are not occurring as frequently. Patient does admit to concern that urges to self injure may recur, but is also reporting motivation to utilize healthy coping skills as replacement behaviors. Patient is able to verbalize several activities that she finds helpful, including coloring, watching TV, and calling a friend. Patient does report hopefulness that she will be able to utilize these coping strategies before any attempts to self injure. Patient denies suicidal ideation at this time, but also feels able to utilize her safety plan should these negative thoughts recur. Patient remains optimistic for discharge today, but is understanding that additional safety planning will have to be reviewed during the family meeting with her mother. This provider received updates following this meeting, and mother reportedly denied any safety concerns. Both patient and mother were informed of plans for discharge today, and are agreeable. ROS: Constitutional: denied Cardiovascular: denied Respiratory: denied Gastrointestinal: denied Neurological: denied Psychiatric: denies symptoms other than stated above Total of at least 10 systems reviewed, pertinent positives as above and in HPI. Transition of Care Transition Of Care Record: was reviewed with the patient Advance Directives Advance Directives Information Provided: Yes Advance Directives: No Mental Health Advance Directive: No Advance Directives on File: No Living Will: No Power of Char Conveyor Tender: No Advance Directives Reason:: Declines as Mental Health Visit. Risk Factors Assessment Presenting risk factors reviewed on discharge. Precipitating stressors mitigated by: admission for inpatient psychiatric observation and treatment, appropriate adjustments to medications to target symptoms, attendance of therapeutic treatment groups, development of healthy and effective coping strategies, involvement of outpatient supports, completion of a safety plan, confirmation of guns and weapons being secured, discussion regarding substance abuse and effects on mental health diagnoses, and education on diagnoses. Pt has demonstrated improvement in condition with regard to improvement in mood, reported resolution of SI, practice utilizing coping strategies, involvement of mother in family meeting and discharge planning. At this time, patient is requesting discharge and is no longer considered to be at acute risk of harm to herself or others. Pt will be discharged with recommendation for ongoing outpatient psychiatric treatment. Pt is at increased risk of harm to self or others when compared to the general population and there are several risk factors which are not likely to be mitigated in an inpatient treatment setting. Pt will be encouraged to continue to utilize outpatient supports to develop healthy coping strategies to replace self-injurious behaviors. Male: No : Yes Do You Have Access To A Gun?: No Health Problems: Yes Mental Health Diagnoses: Yes Substance Use Disorders: Yes Previous Attempt: Yes Previous Attempt; Highly Lethal: No Previous Attempt; Planned: Yes Previous Attempt; Didn't Tell Anyone: Yes Previous Psychiatric Hospitalization: Yes Hopelessness: Yes Smoker: No Protective Factors Assessment Employed: Yes ([employer]) Tobacco Cessation at Discharge Tobacco Cessation Medication Prescribed at Discharge: Offered & Pt Refused Antipsychotic Medications Temporary utilization of aripiprazole and quetiapine during admission. Medications were utilized to target reported auditory hallucinations with difficulty sleeping reportedly improved with use of quetiapine. Recommendation, once stability of symptoms is observed out an outpatient basis would be to continue plans for cross-taper to only one atypical antipsychotic agent. Total Time Total Time Spent: Greater Than 30 Minutes Total Time Includes: Examination of the patient, Discharge Planning, Medication Reconciliation and Communication with other providers Discharge Data Lab Results 05/26/19 05/26/19 05/26/19 21:41 21:41 21:41 WBC 11.10 H RBC 4.69 Hgb 13.9 Hct 40.3 MCV 85.9 MCH 29.6 MCHC 34.5 RDW Std Deviation 41.7 RDW Coeff of Reynold 13.2 Plt Count 287 MPV 9.2 Immature Gran % (Auto) 0.3 Neut % (Auto) 67.5 Lymph % (Auto) 27.0 Ellis % (Auto) 3.4 Eos % (Auto) 1.7 Baso % (Auto) 0.1 Immature Gran # (Auto) 0.03 H Neut # (Auto) 7.49 H Lymph # (Auto) 3.00 Ellis # (Auto) 0.38 Eos # (Auto) 0.19 Baso # (Auto) 0.01 Sodium 139 Potassium 3.7 Chloride 110 H Carbon Dioxide 23 Anion Gap 6.0 BUN 10 Creatinine 0.77 Est Cr Clr Drug Dosing Not Reportable Est GFR ( Amer) 124.4 Est GFR (Non-Af Amer) 107.3 BUN/Creatinine Ratio 12.9 Glucose 86 Calcium 9.2 Total Bilirubin 0.2 AST 11 L ALT 19 Alkaline Phosphatase 85 Total Protein 7.5 Albumin 3.8 Globulin 3.7 Albumin/Globulin Ratio 1.0 Triglycerides Cholesterol LDL Cholesterol, Calc VLDL Cholesterol, Calc HDL Cholesterol Cholesterol/HDL Ratio TSH 2.320 Urine Color Urine Appearance Urine pH Ur Specific [place] Urine Protein Urine Glucose (UA) Urine Ketones Urine Blood Urine Nitrite Urine Bilirubin Urine Urobilinogen Ur Leukocyte Esterase Urine WBC (Auto) Urine RBC (Auto) U Hyaline Cast (Auto) U Epithel Cells (Auto) Urine Bacteria (Auto) POC Ur Test Salicylates 3.3 Urine Opiates Screen Ur Methadone, Qual Acetaminophen < 2 L Urine Barbiturates Ur Phencyclidine (PCP) U Amphetamin/Meth Scrn MDMA (Ecstasy) Screen U OH-Alprazolam Confrm U Benzodiazepines Scrn 7-Amino Clonazepam Ur Nordiazepam Confirm U OH-ethylflurazepam U Lorazepam Cnf GC/MS U Oxazepam Confm GC/MS Ur Temazepam Confirm U OH-Triazolam Confirm U OH-Midazolam Confirm Ur Cocaine Metabolite U Marijuana (THC) Screen U Marijuana THC Carboxy Drug Screen Comment Ethyl Alcohol mg/dL 05/26/19 05/26/19 05/26/19 21:41 23:20 Unknown WBC RBC Hgb Hct MCV MCH MCHC RDW Std Deviation RDW Coeff of Reynold Plt Count MPV Immature Gran % (Auto) Neut % (Auto) Lymph % (Auto) Ellis % (Auto) Eos % (Auto) Baso % (Auto) Immature Gran # (Auto) Neut # (Auto) Lymph # (Auto) Ellis # (Auto) Eos # (Auto) Baso # (Auto) Sodium Potassium Chloride Carbon Dioxide Anion Gap BUN Creatinine Est Cr Clr Drug Dosing Est GFR ( Amer) Est GFR (Non-Af Amer) BUN/Creatinine Ratio Glucose Calcium Total Bilirubin AST ALT Alkaline Phosphatase Total Protein Albumin Globulin Albumin/Globulin Ratio Triglycerides Cholesterol LDL Cholesterol, Calc VLDL Cholesterol, Calc HDL Cholesterol Cholesterol/HDL Ratio TSH Urine Color Urine Appearance Urine pH Ur Specific [place] Urine Protein Urine Glucose (UA) Urine Ketones Urine Blood Urine Nitrite Urine Bilirubin Urine Urobilinogen Ur Leukocyte Esterase Urine WBC (Auto) Urine RBC (Auto) U Hyaline Cast (Auto) U Epithel Cells (Auto) Urine Bacteria (Auto) POC Ur Test Salicylates Urine Opiates Screen Neg Ur Methadone, Qual Neg Acetaminophen Urine Barbiturates Neg Ur Phencyclidine (PCP) Neg U Amphetamin/Meth Scrn Neg MDMA (Ecstasy) Screen Neg U OH-Alprazolam Confrm NEGATIVE U Benzodiazepines Scrn Pos H 7-Amino Clonazepam NEGATIVE Ur Nordiazepam Confirm 57 H U OH-ethylflurazepam NEGATIVE U Lorazepam Cnf GC/MS NEGATIVE U Oxazepam Confm GC/MS 243 H Ur Temazepam Confirm 109 H U OH-Triazolam Confirm NEGATIVE U OH-Midazolam Confirm NEGATIVE Ur Cocaine Metabolite Neg U Marijuana (THC) Screen Pos H U Marijuana THC Carboxy 196 H Drug Screen Comment SEE NOTE Ethyl Alcohol mg/dL < 3.0 05/26/19 05/26/19 05/28/19 Unknown Unknown 07:09 WBC RBC Hgb Hct MCV MCH MCHC RDW Std Deviation RDW Coeff of Reynold Plt Count MPV Immature Gran % (Auto) Neut % (Auto) Lymph % (Auto) Ellis % (Auto) Eos % (Auto) Baso % (Auto) Immature Gran # (Auto) Neut # (Auto) Lymph # (Auto) Ellis # (Auto) Eos # (Auto) Baso # (Auto) Sodium Potassium Chloride Carbon Dioxide Anion Gap BUN Creatinine Est Cr Clr Drug Dosing Est GFR ( Amer) Est GFR (Non-Af Amer) BUN/Creatinine Ratio Glucose Calcium Total Bilirubin AST ALT Alkaline Phosphatase Total Protein Albumin Globulin Albumin/Globulin Ratio Triglycerides 188 H Cholesterol 159 LDL Cholesterol, Calc 67 VLDL Cholesterol, Calc 38 HDL Cholesterol 54 Cholesterol/HDL Ratio 3 TSH Urine Color Yellow Urine Appearance Cloudy A Urine pH 5.0 Ur Specific [place] 1.019 Urine Protein Negative Urine Glucose (UA) Negative Urine Ketones Negative Urine Blood 2+ H Urine Nitrite Negative Urine Bilirubin Negative Urine Urobilinogen Negative Ur Leukocyte Esterase Trace H Urine WBC (Auto) 10-30 H Urine RBC (Auto) 5-10 H U Hyaline Cast (Auto) 0 U Epithel Cells (Auto) >30 H Urine Bacteria (Auto) 2+ H POC Ur Test NEG Salicylates Urine Opiates Screen Ur Methadone, Qual Acetaminophen Urine Barbiturates Ur Phencyclidine (PCP) U Amphetamin/Meth Scrn MDMA (Ecstasy) Screen U OH-Alprazolam Confrm U Benzodiazepines Scrn 7-Amino Clonazepam Ur Nordiazepam Confirm U OH-ethylflurazepam U Lorazepam Cnf GC/MS U Oxazepam Confm GC/MS Ur Temazepam Confirm U OH-Triazolam Confirm U OH-Midazolam Confirm Ur Cocaine Metabolite U Marijuana (THC) Screen U Marijuana THC Carboxy Drug Screen Comment Ethyl Alcohol mg/dL Hospital Course (1) Suicidal ideation: 05/27/19 -The patient reports a history of multiple past suicide attempts by self cutting and by deliberate overdose of medications. She continues to report active suicidal ideation and admits to taking a deliberate overdose of trazodone on 05/25/2019, and 2 intending to kill herself by exsanguination subsequent to cutting herself with a sharp object (a piece of glass). -She had advised staff at admission to the behavioral health unit that she was considering harming herself on the unit. After discussing this further with her, the patient said that she understood that it would be important for her to agree not to physically harm herself on the unit and she said that she felt able to contract. However, she also says that she would intend to quickly kill her self where she allowed to leave the hospital at this point. -The patient has been admitted to the locked behavioral health unit, has been placed on suicide precautions, has been placed in an observation room directly across from the nursing station, and has been given a medically necessary private room. -We will encourage the patient to participate in individual, group and activity therapies as a way of developing improved individual coping strategies. 05/28 -Patient reporting reduced suicidal impulses but unable to convincingly contract for safety this morning 05/29 -Patient continues to demonstrate self-injurious impulses (however these do appear rather chronic) -Encouraging participation in therapeutic programming to improve coping -Reviewed behavioral expectations as above. If she continues to check exterior doors her room will be moved near the nursing station. Continue elopement precautions. (2) Nonadherence to medication: 05/27/19 -The patient acknowledges a long history of nonadherence with psychiatric medications. For example, she tells us that although she has been prescribed buspirone she has stopped taking it a while back, and evidently did not notify her outpatient prescriber. -The patient does report that she takes aripiprazole because she feels that this medication "really helps," and a current strategy would be to stabilize the patient on aripiprazole and then convert to Abilify Sestina. 05/29 -Patient now refusing to consider Depo antipsychotic (3) Marijuana abuse: -: The patient asserts that she does not have any history of drug or alcohol abuse, she indirectly suggested that she "used to" drink heavily. Also, medical records from as recently as 2017 indicate that the patient has a known history of the abuse of several mood altering chemical substances including marijuana, crack cocaine, and methamphetamine. When confronted with this information, the patient says that she only drinks occasionally, has not recently used cocaine or methamphetamine, but does use marijuana on a daily basis because "it really helps with my nerves." (4) Psychosis: 05/27/19 -The patient indicates that she has been actively hallucinating since around March 2019, and reports that she also has a past history of episodes of auditory hallucinations. -Patient's current voices are depreciating and include command hallucinations that tell her to kill herself. She indicates that she does not know the source of these voices, does say that they comprise a man's voice in a woman's voice, and that she believes they are "real." -No systematized delusional beliefs were identified and the patient's thought content today. She does say, however, that her plan is to kill herself so that she can "be with" her late grandfather and, possibly, her late father. -We will increase the patient's outpatient dose of aripiprazole from 5 mg daily to 10 mg daily and titrate further as indicated. 05/28 -Tolerating increased dose of Abilify without difficulty so far -We will temporarily continue the Seroquel 50 mg p.o. nightly for sleep and anxiety. Reviewed antipsychotic polypharmacy nonpreferred however she declined option to utilize the Seroquel as a stand-alone antipsychotic at higher dose. As goal of conversion to long-acting injectable is not a feasible option with the Seroquel alone, temporary augmenting use of the additional antipsychotic appears reasonable however this should be reconsidered on a longer-term basis as an outpatient. 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 Random glucose was 86 on 05/26/2019. -Again reported good sleep with Seroquel. (5) Benzodiazepine abuse: 05/29 - Patient has given variable self-report regarding benzodiazepine abuse prior to hospitalization. - Advised against benzodiazepine use outside of the hospital due to associated risks. No evidence of benzodiazepine withdrawal Mental Health & Subst Abuse Tx Psychiatrist Name of Psychiatrist: [facility] Toña Nash Psychiatrist's Date of Appointment with Psychiatrist: 06/06/19 Time of Appointment with Psychiatrist: 9:45 a.m. Psychiatric Appointment Comment: [address] [place] [address] Therapist Name of Therapist: [facility] Toña Ye Therapist's Date of Therapist Appointment: 06/02/19 Time of Therapist Appointment: 11:00 a.m. Therapy Appointment Comment: [address] [place] [address] Electrical Instrument Maker Name of Electrical Instrument Maker: Jade Parker Phone Number for Electrical Instrument Maker: [phone] Date of Appointment with Electrical Instrument Maker: 05/30/19 Time of Appointment with Electrical Instrument Maker: 3:00 p.m. Case Management Appointment Comment: Will come see you Post Discharge Appointments Primary Care Physician Name Of Family Doctor: Wolfgang Gallagher Primary Care Time of Appointment with PCP: Follow up as needed Provider Appointment Comment: [address] [place] [address] Partial or Psych Rehab Name of Partial or Psych Rehab[place] [facility]oking Cessation [facility]ing Tobacco Cessation Medication Prescribed at Discharge: Offered & Pt Refused Other #1: Name of Aftercare Appointment: Patrice Belcher [facility] Toña Rodrigues Phone Number of Aftercare Appointment: [phone] Aftercare Appointment Comment: Comes to your home on Tuesdays/Fridays Contact Information Discharge Discharge Address: [address], [address] [address] Discharge Plan Discharge Items Patient Disposition: Home - Self-Care Reason For Visit: BIPOLAR II Discharge Diagnosis: - Bipolar disorder - Auditory hallucinations Condition on Discharge: Fair Activity: Resume your previous activity Non-emergency contact: Primary Care Provider, Psychiatrist, Therapist and Bag End Sewer Call non-emergency contact if: you have any medication questions and your symptoms worsen Follow-up/Referrals: Sussy Gallagher DO [Primary Care Provider] - Diet: Regular Addtl Attending Provider Instructions: SPECIAL CARE INSTRUCTIONS: 1. Follow through with your scheduled aftercare appointments. If unable to keep an appointment, please call to reschedule. 2. Take your medication only as prescribed. Medication should not be changed or stopped without the approval of your doctor. In the event of worsening symptoms or concerns about side effects, contact your doctor immediately. 3. Utilize new healthy coping skills, anger management skills, and stress management skills learned during your hospitalization. Journal feelings and process them with a support person. Identify stressors or situations that may result in relapse, deterioration or inappropriate behaviors and develop a plan to deal with those issues. 4. If your coping skills are ineffective and you are in crisis, contact your outpatient providers for direction. If unable to reach your providers, please call the CAN HELP LINE AT or go to the closest Emergency Room. 5. Avoid alcohol and un-prescribed drugs. 6. You have been provided with the Mental Health Advance Directives Pamphlet for your review. AFTERCARE APPOINTMENTS: * Please call your insurance company prior to your scheduled appointment to confirm your aftercare providers are covered. Take your insurance information to your appointments. WHO TO CALL AND WHEN: Medical Emergencies: For questions or emergencies related to your hospital stay, please contact the Inpatient Behavioral Health Unit at [phone]. A claims administrator is on-call 22/12 for the Behavioral Health Unit for emergencies At any time you feel your situation is an emergency, you may also call 911 immediately. Your Discharge Instructions noted above were prepared by provider Fara Gee PA-C. Pending Studies at Discharge: No Stand-Alone Forms: [facility] [employer], Smoking Cessation, Suicide Prevention Resources Medications and DC Order Prescriptions: New aripiprazole [Abilify] 10 mg Tablet 10 mg PO QAM 30 Days Qty: 30 RF: 0 quetiapine 50 mg tablet 50 mg PO HS 30 Days Qty: 30 RF: 0 Continued albuterol sulfate [Ventolin HFA] 90 mcg/actuation Hfa Aerosol Inhaler 2 puff INHALATION QID PRN (Reason: Shortness Of Breath) RF: 0 ondansetron HCl [Zofran] 4 mg Tablet 4 mg PO QID PRN (Reason: Nausea And Vomiting) RF: 0 trihexyphenidyl 2 mg Tablet 2 mg PO BID RF: 0 metformin 500 mg Tablet 500 mg PO BID RF: 0 Cyclessa (28) 0.1/.125/.15-25 mg-mcg Tablet 1 tab PO DAILY RF: 0 levothyroxine 50 mcg Tablet 50 mcg PO DAILY RF: 0 polyethylene glycol 3350 17 gram/dose Powder 17 g PO DAILY PRN (Reason: Constipation) RF: 0 fluticasone propionate [Flonase Allergy Relief] 50 mcg/actuation [place],Suspension 2 spray INTRANASAL DAILY PRN (Reason: Allergy Symptoms) RF: 0 loratadine 10 mg Tablet 10 mg PO DAILY RF: 0 hydroxyzine HCl 25 mg Tablet 25 mg PO Q4H PRN (Reason: anxiety) Qty: 12 RF: 0 Discontinued buspirone 15 mg Tablet 15 mg PO TID RF: 0 aripiprazole [Abilify] 5 mg Tablet 5 mg PO DAILY RF: 0 Discharge Orders: Discharge Order (Routine); Ordered 05/30/19 Ordered By: Fara Gee Admission Data Admit Date/Time: 05/27/19 01:13 Attending Provider: Margaret See Admit Provider: Margaret See Primary Care Provider: Sussy Gallagher Other Interventions: Discharge Summary Assessment (RN) Last Done: 05/30/19 11:50 PSY Interdisciplinary Discharge Planning Last Done: 05/30/19 11:53 DC Date/Time DO NOT enter until pt leaves facility: 05/30/19 12:07 Coding Level of Care Code 43764 D/C day mgmt > 30 min Diagnoses Suicidal ideation R45.851 Nonadherence to medication Z91.14 Marijuana abuse F12.10 Psychosis F29 Benzodiazepine abuse F13.10
== END 2019-05-30 12:07 | disposition home or self-care (01) | DRG 885 ==
LOC: ED 21:08 → SUATTDRO 05-27 01:13 → 3S 05-27 01:13

== ENCOUNTER 2023-07-26 20:23 | Inpatient (IN) ==
--- OUTSIDE RECORDS SUMMARY | 2023-07-26 20:29 | External Medical Summary | Summary of Care ---
Author Name Unknown Organization [facility] Address [address] [address] Phone [phone] Care Team Providers Care Volunteer Fire Fighter Name Role Phone Sussy Gallagher Primary Care Provider [phone] Encounter Details Date Type Department Care Team (Late st Contact Info) Description 07/25/2023 Orders Only PATIENT PORTAL DO NOT DELETE THIS DEPT USED BY [place] [id number] Allergies Active Allergy Reactions Criticality Noted Date Comments Aspirin Rash 01/19/2015 Bee Venom 08/29/2014 [place] Hives 08/11/2012 Haloperidol Lactate 02/16/2019 Catatonia-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 Lactose 05/05/2017 documented as of this encounter (statuses as of 07/25/2023) Medications Medication Sig Dispensed Refills Start Date End Date Status Ammonium Lactate (LAC-HYDRIN) 12 % creamIndications:Ker atosis pilaris Apply topically to affected area 2 times a day. To affected area on upper arms 385 g 11 01/05/2018 Active ondansetron (ZOFRAN) 4 MG TabletIndications:Na usea and vomiting, intractability of vomiting not specified, unspecified vomiting type Take 1 Tab by mouth every 6 hours as needed for Nausea. 30 Tab 0 11/12/2018 Active hydrOXYzine HCl 25 MG tablet 1 Tablet. 0 01/13/2019 Active loratadine (ALLERGY RELIEF) 10 MG TabletIndications:Ch ronic rhinitis TAKE ONE TABLET ONCE A DAY 30 Tab 2 02/16/2019 Active Invega Sustenna 156 MG/ML Intramuscular Suspension Prefilled Syringe 0 02/17/2020 Active FLUoxetine HCl 10 MG Oral Capsule (PROzac) 0 09/10/2020 Active Cyclobenzaprine HCl 10 MG Oral Tablet (Flexeril)Indication s:Dysmenorrhea Take by mouth 1 Tablet as needed before bedtime for Muscle spasms (take when on period). 10 Tablet 0 02/21/2022 Active Erythromycin 5 MG/GM Ophthalmic Ointment APPLY 1 APPLICATION INTO THE EYE(S) EVERY 6 HOURS 0 12/22/2022 Active traZODone HCl 150 MG Oral Tablet (Desyrel) TAKE 1 TABLET BY MOUTH EVERYDAY AT BEDTIME 0 12/22/2022 Active Propranolol HCl 10 MG Oral Tablet (Inderal) TAKE 1 TABLET BY MOUTH ONCE DAILY NEEDED ANXIETY 0 12/22/2022 Active Escitalopram Oxalate 10 MG Oral Tablet (Lexapro) Take 1 Tablet by mouth in the morning. In the morning.. 0 12/22/2022 Active Ketorolac Tromethamine 10 MG Oral Tablet (Toradol)Indications :Hordeolum externum of right upper eyelid Take 1 Tablet by mouth 4 times a day as needed for Pain, Severe. Do not take for longer than 5 days 20 Tablet 0 12/24/2022 Active Levothyroxine Sodium 50 MCG Oral Tablet (Levoxyl)Indications :Acquired hypothyroidism (at least 30 min prior to breakfast or other meds) 90 Tablet 3 12/24/2022 Active Montelukast Sodium 10 MG Oral Tablet (Singulair)Indicatio ns:Allergic rhinitis, unspecified seasonality, unspecified trigger Take 1 Tablet by mouth in the morning. 90 Tablet 3 12/24/2022 Active Albuterol Sulfate HFA 108 (90 Base) MCG/ACT Inhalation Aerosol SolutionIndications: Acute cough Inhale 2 Puffs by mouth every 4 hours as needed for Wheezing. 18 g 5 12/24/2022 Active Azelastine HCl 0.1 % Nasal Solution (Astelin)Indications :Allergic rhinitis, unspecified seasonality, unspecified trigger Administer 1 [place] into nostril in the morning and 1 [place] before bedtime. 30 mL 12 12/24/2022 Active Magnesium 400 MG Oral TabletIndications:Te nsion headache Take 1 Tablet by mouth at bedtime. 100 Tablet 1 02/05/2023 Active Riboflavin 400 MG Oral CapsuleIndications:T ension headache Take 1 Capsule by mouth in the morning. 100 Capsule 1 02/05/2023 Active metFORMIN HCl 500 MG Oral Tablet (Glucophage)Indicati ons:Insulin resistance TAKE ONE TABLET BY MOUTH 2 TIMES A DAY WITHMORNING AND EVENING MEALS 180 Tablet 1 07/20/2023 Active documented as of this encounter (statuses as of 07/25/2023) Active Problems Problem Noted Date Diagnosed Date Body mass index (BMI) of 45.0 to 49.9 in adult 0 01/12/2023 Overview: Per Obesity protocol - bmi= 37.69 01/15/12 Prediabetes 03/10/2022 Overview: Per Prediabetes protocol Chronic rhinitis 04/17/2016 Tobacco use disorder 04/17/2016 Slow transit constipation 04/17/2016 Acquired hypothyroidism 02/20/2016 Hyperinsulinemia 06/27/2010 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 0 to 44.9 in adult 03/02/2017 01/15/2023 Overview: Per Obesity protocol #1 - bmi= 37.69 01/15/12 Acute cystitis with hematuria 04/17/2016 02/26/2017 Urgency of urination 04/17/2016 017 Dysfunction of eustachian tube 04/17/2016 02/26/2017 Obesity, Class II, BMI 35-39 .9, isolated (see actual BMI) 01/15/2012 03/05/2017 Overview: bmi= 37.69 01/15/12 Open wound of left foot 01/15/201201/31 Foreign body (FB) in soft tissue 01/15/2012 02/26/2017 Need for vaccination against human papillomavirus 01/15/2012 02/26/2017 Need for prophylactic vaccin ation with tetanus-diphtheria (Td) 01/15/2012 02/26/2017 OVERWEIGHT 01/09/2010 02/26/2017 Epistaxis 01/09/2010 02/26/2017 ADVANCE DIRECTIVE INFORMATION 02/18/2005 02/26/2017 Overview: Not applicable (under age of 18) Viral warts 02/22/2004 02/26/2017 Overview: ICD-10 update of inactive term Constipation 05/06/2000 09/21/2020 Overview: ICD-10 update of inactive term VULVAR IRRITATION, MILD 05/06/200012/30 ACUTE SINUSITIS NOS 03/16/2000 07/20/19 Overview: Resolved per Benign Acute Dxs Protocol #3 Unspecified viral infection, in conditions classified elsewhere and of unspecified site 03/16/2000 01/09/2010 DYSFUNCT EUSTACHIAN TUBE 03/16/200004/2010 PHARYNGITIS 03/16/2000 01/09/2010 documented as of this encounter (statuses as of 07/25/2023) Immunizations Name Administration Dates Next Due H1N1 2008 Influenza, IM 06/22/2009 HPV Vaccine, 4-Valent 08/11/2012,01/15/2012,0210/2011 Meningococcal Polysaccharide Vaccine ([place]) 07/17/2008 PPD 03/31/2006,08/28/2005 Pneumococcal Polysaccharide PPV23 (Pneumovax) 08/11/2012 Seasonal Influenza, PF, 6 M & above, IM , (FluLaval or Fluzone) 02/21/2022,03/01/2020,03/29/2019,04/01,02/26/2017 Seasonal Influenza, Quadriva lent, No Preserve, IM 02/20/2016 Seasonal Influenza, Split, I IV3, With Preserve, Inj 02/16/2015,04/04/2014,02/11/2013,05/01,04/18/2011,07/17/2009,04/02/20 07,03/31/2006 02/17/2016 TD, Preservative Free 01/15/2012 TDAP (age 10 and older)(Boostrix) 08/07/2005 Varicella Vaccine (Chicken Pox) 07/17/2008 documented as of this encounter Social History Tobacco Use Types Packs/Day Years Used Date Smoking Tobacco: Every Day Cigarettes 1 6 Smokeless Tobacco: Never Comments:rolls her own -does not quantify-st a lot Alcohol Use Standard Drinks/Week Comments Yes 0 (1 standard drink = 0.6 oz pur e alcohol) occ PHQ-2 Answer Date Recorded PHQ-2 Score 13 11/12/2018 Sex and Gender Information Value Date Recorded Sex Assigned at Female 10/15/2018 2:10 PM EDT Gender Identity Female 10/15/2018 2:10 PM EDT Sexual Orientation Straight 10/15/2018 2: 10 PM EDT Job Start Date Occupation Industry Not on file Not on file Not on file documented as of this encounter Plan of Treatment Health Maintenance Due Date Last Done Comments Hepatitis B (4 of 4 - 4-dose series) 01/02/1994 1993, 1993, 1993, Additional history exists Pneumococcal Vaccine: Pediatrics (0 to 5 Years) and At-Risk Patients (6 to 64 Years) (2 of 2 - PCV) 08/11/2013 08/11/2012 PAP SMEAR-ANNUAL AGES 18-100 02/26/2018 02/26/2017, 12/19/2014 Depression, Most Recent Score >= 10 (will fire each visit until score < 10) 11/13/2018 11/12/2018 DTaP,Tdap,and Td Vaccines (8 - Td or Tdap) 01/14/2022 01/15/2012, 08/07/2005, 07/26/1998, Additional history exists COVID-19 Vaccine ( - 2022- season) 2023 Influenza Vaccine (FLU shot) (#1) 2023 02/21/2022, 03/01/2020, 03/01/2020, Additional history exists B-12 12/25/2023 12/24/2022, 06/01, 01/05/2018 HbA1c 12/25/2023 12/24/2022, 01/30, 06/12/2020, Additional history exists TSH 12/25/2023 12/24/2022, 01/30, 06/12/2020, Additional history exists MENINGOCOCCAL (MENACTRA/MENVEO) Aged Out 07/17/2008 No longer eligible based on patient's age to complete this topic GARDASIL-HPV IMMUNIZATION SERIES Completed 08/11/2012, 01/15/2012, 07/07/2011 documented as of this encounter Medical Devices Not on filedocumented as of this encounter Care Teams Volunteer Fire Fighter Relationship Specialty Start Date End Date Sussy Gallagher DO [address] [place] [facility] [place] [address] PCP - General Family Medicine 12/24/22 documented as of this encounter
--- OUTSIDE RECORDS SUMMARY | 2023-07-26 20:29 | External Medical Summary | Summary of Care ---
Author Name Unknown Organization [facility] Address [address] [place] [facility] [place] [place] [address] Phone [phone] Care Team Providers Care Ocean Rescue Lieutenant Name Role Phone Susys Gallagher Primary Care Provider [phone] Reason for Visit * Reason Onset Date Comments Advice 03/04/2023 Encounter Details Date Type Department Care Team Description 03/04/2023 Telephone Orthopaedics [facility] [address] [place] [address] Ruben Lopez MD [address] [place] [address] Advice Allergies Active Allergy Reactions Severity Noted Date Comments Aspirin Rash 01/19/2015 Bee Venom 08/29/2014 [place] Hives 08/11/2012 Haloperidol Lactate 02/16/2019 Catatonia-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 Lactose 05/05/2017 documented as of this encounter (statuses as of 03/13/2023) Medications Medication Sig Dispensed Refills Start Date [...] rhinitis, unspecified seasonality, unspecified trigger Administer 1 [place] into nostril in the morning and 1 [place] before bedtime. 30 mL 12 12/24/2022 Active metFORMIN HCl 500 MG Oral Tablet (Glucophage)Indicati ons:Insulin resistance TAKE ONE TABLET BY MOUTH 2 TIMES A DAY WITHMORNING AND EVENING MEALS 180 Tablet 1 12/24/2022 Active Magnesium 400 MG Oral TabletIndications:Te nsion headache Take 1 Tablet by mouth at bedtime. 100 Tablet 1 02/05/2023 Active Riboflavin 400 MG Oral CapsuleIndications:T ension headache Take 1 Capsule by mouth in the morning. 100 Capsule 1 02/05/2023 Active documented as of this encounter (statuses as of 03/13/2023) Active Problems Problem Noted Date Body mass index (BMI) of 45.0 to 49.9 in adult 01/12/2023 Overview: Per Obesity protocol - bmi= 37.69 01/15/12 Prediabetes 03/10/2022 Overview: Per Prediabetes protocol Chronic rhinitis 04/17/2016 Tobacco use disorder 04/17/2016 Slow transit constipation 04/17/2016 Acquired hypothyroidism 02/20/2016 Hyperinsulinemia 06/27/2010 Intestinal disaccharidase deficiency Allergic rhinitis 01/09/2010 Attention deficit hyperactivity disorder (ADHD) 08/11/2000 Overview: ICD-10 update of inactive term Urinary incontinence 05/06/2000 Overview: ICD-10 update of inactive term documented as of this encounter (statuses as of 03/13/2023) Resolved Problems Problem Noted Date Resolved Date Body mass index (BMI) of 40.0 to 44.9 in adult 1 01/15/2023 Overview: Per Obesity protocol #1 - bmi= 37.69 01/15/12 Acute cystitis with hematuria 04/17/2016 Urgency of urination 04/17/2016 02/26/2017 Dysfunction of eustachian tube 04/17/2016 0 02/26/2017 Obesity, Class II, BMI 35-39.9, isolated (see ac tual BMI) 01/15/2012 03/05/2017 Overview: bmi= 37.69 01/15/12 Open wound of left foot 01/15/2012 02/27/20 17 Foreign body (FB) in soft tissue 01/15/2012 02/26/2017 Need for vaccination against human papillomaviru s 01/15/2012 02/26/2017 Need for prophylactic vaccin ation with tetanus-diphtheria (Td) 01/15/2012 02/26/2017 OVERWEIGHT 01/09/2010 02/26/2017 Epistaxis 01/09/2010 02/26/2017 ADVANCE DIRECTIVE INFORMATION 02/18/2005 Overview: Not applicable (under age of 18) Viral warts 02/22/2004 02/26/2017 Overview: ICD-10 update of inactive term Constipation 05/06/2000 09/21/2020 Overview: ICD-10 update of inactive term VULVAR IRRITATION, MILD 05/06/2000 01/10/20 10 ACUTE SINUSITIS NOS 03/16/2000 07/20/2008 Overview: Resolved per Benign Acute Dxs Protocol #3 Unspecified viral infection, in conditions classified elsewhere and of unspecified site 03/16/2000 01/09/2010 DYSFUNCT EUSTACHIAN TUBE 03/16/2000 010 PHARYNGITIS 03/16/2000 01/09/2010 documented as of this encounter (statuses as of 03/13/2023) Immunizations Name Administration Dates Next Due H1N1 2009 Influenza, IM 06/22/2009 HPV Vaccine, 4-Valent 08/11/2012,01/15/2012,020 10/2011 Meningococcal Polysaccharide Vaccine ([place]) 07/17/2008 PPD 03/31/2006,08/28/2005 Pneumococcal Polysaccharide PPV23 (Pneumovax) 08/11/2012 SEASONAL INFLUENZA, PF, 6 M & Above, IM , (FLULAVAL or FLUZONE) 02/21/2022,03/01/2020,03/29/2019,04/01,02/26/2017 Seasonal Influenza, Quadriva lent, No Preserve, [...] = 0.6 oz pur e alcohol) occ Sex Assigned at Date Recorded Female 10/15/2018 2:10 PM E DT Job Start Date Occupation Industry Not on file Not on file Not on file documented as of this encounter Miscellaneous Notes * Telephone Encounter - [facility] - 03/04/2023 12:10 PM EDT Patient called in requesting a sooner appointment. Patient stated she now has 2 ganglion cysts. Advised patient she is scheduled for the soonest available. Please advise if appointment should be sooner. Thank you. documented in this encounter Plan of Treatment Upcoming Encounters Date Type Specialty Care Team Description 04/15/2023 Office Visit Orthopedics Ruben Lopez MD [address] [place] [address] Health Maintenance Due Date Last Done Comments COVID-19 Vaccine (#1) 01/02/1994 Hepatitis B (4 of 4 - 4-dose series) 01/02/1994 1993, 1993, 1993 Pneumococcal Vaccine: Pediatrics (0 to 5 Years) and At-Risk Patients (6 to 64 Years) (2 - PCV) 08/11/2013 08/11/2012 PAP SMEAR-ANNUAL AGES 18-100 02/26/2018 02/26/2017, 12/19/2014 Depression, Most Recent Score >= 10 (will fire each visit until score < 10) 11/13/2018 11/12/2018 DTaP,Tdap,and Td Vaccines (8 - Td or Tdap) 01/14/2022 01/15/2012, 08/07/2005, 07/26/1998, Additional history exists Influenza Vaccine (FLU shot) (#1) 2023 02/21/2022, [...] filedocumented as of this encounter Care Teams Ocean Rescue Lieutenant Relationship Specialty Start Date End Date Sussy Gallagher, [address] [place] [address] PCP - General Family Medicine 12/24/22 documented as of this encounter
--- OUTSIDE RECORDS SUMMARY | 2023-07-26 20:29 | External Medical Summary | Summary of Care ---
Author Name Unknown Organization [facility] Address [address] [place] [address] Phone [phone] Care Team Providers Care Treasury Specialist Name Role Phone Christa Noel Primary Care Provider [phone] Reason for Visit * Reason Comments eRx-Medication Refill Encounter Details Date Type Department Care Team (Late st Contact Info) Description 07/19/2023 Refill [facility] [address] [place] [address] Leticia Varela PA-C [address] [place] [address] Encounter for long-term (current) use of other medications*; Insulin resistance Allergies Active Allergy Reactions Criticality Noted Date Comments Aspirin Rash 01/19/2015 Bee Venom 08/29/2014 [place] Hives 08/11/2012 Haloperidol Lactate 02/16/2019 Catatonia-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 Lactose 05/05/2017 documented as of this encounter (statuses as of 07/20/2023) Medications Medication Sig Dispensed Refills Start Date End Date Status Ammonium Lactate (LAC-HYDRIN) 12 % creamIndications:Ke ratosis pilaris Apply topically to affected area 2 times a day. To affected area on upper arms 385 g 11 8 Active ondansetron (ZOFRAN) 4 MG TabletIndications:N ausea and vomiting, intractability of vomiting not specified, unspecified vomiting type Take 1 Tab by mouth every 6 hours as needed for Nausea. 30 Tab 0 9 Active hydrOXYzine HCl 25 MG tablet 1 Tablet. 0 9 Active loratadine (ALLERGY RELIEF) 10 MG TabletIndications:C hronic rhinitis TAKE ONE TABLET ONCE A DAY 30 Tab 2 9 Active Invega Sustenna 156 MG/ML Intramuscular Suspension Prefilled Syringe 0 0 Active FLUoxetine HCl 10 MG Oral Capsule (PROzac) 0 1 Active Cyclobenzaprine HCl 10 MG Oral Tablet (Flexeril)Indicatio ns:Dysmenorrhea Take by mouth 1 Tablet as needed before bedtime for Muscle spasms (take when on period). 10 Tablet 0 2 Active Erythromycin 5 MG/GM Ophthalmic Ointment APPLY 1 APPLICATION INTO THE EYE(S) EVERY 6 HOURS 0 3 Active traZODone HCl 150 MG Oral Tablet (Desyrel) TAKE 1 TABLET BY MOUTH EVERYDAY AT BEDTIME 0 3 Active Propranolol HCl 10 MG Oral Tablet (Inderal) TAKE 1 TABLET BY MOUTH ONCE DAILY NEEDED ANXIETY 0 3 Active Escitalopram Oxalate 10 MG Oral Tablet (Lexapro) Take 1 Tablet by mouth in the morning. In the morning.. 0 3 Active Ketorolac Tromethamine 10 MG Oral Tablet (Toradol)Indication s:Hordeolum externum of right upper eyelid Take 1 Tablet by mouth 4 times a day as needed for Pain, Severe. Do not take for longer than 5 days 20 Tablet 0 3 Active Levothyroxine Sodium 50 MCG Oral Tablet (Levoxyl)Indication s:Acquired hypothyroidism (at least 30 min prior to breakfast or other meds) 90 Tablet 3 3 Active Montelukast Sodium 10 MG Oral Tablet (Singulair)Indicati ons:Allergic rhinitis, unspecified seasonality, unspecified trigger Take 1 Tablet by mouth in the morning. 90 Tablet 3 3 Active Albuterol Sulfate HFA 108 (90 Base) MCG/ACT Inhalation Aerosol SolutionIndications :Acute cough Inhale 2 Puffs by mouth every 4 hours as needed for Wheezing. 18 g 5 3 Active Azelastine HCl 0.1 % Nasal Solution (Astelin)Indication s:Allergic rhinitis, unspecified seasonality, unspecified trigger Administer 1 [place] into nostril in the morning and 1 [place] before bedtime. 30 mL 12 3 Active Magnesium 400 MG Oral TabletIndications:T ension headache Take 1 Tablet by mouth at bedtime. 100 Tablet 1 3 Active Riboflavin 400 MG Oral CapsuleIndications: Tension headache Take 1 Capsule by mouth in the morning. 100 Capsule 1 3 Active metFORMIN HCl 500 MG Oral Tablet (Glucophage)Indicat ions:Insulin resistance TAKE ONE TABLET BY MOUTH 2 TIMES A DAY WITHMORNING AND EVENING MEALS 180 Tablet 1 4 Active metFORMIN HCl 500 MG Oral Tablet (Glucophage)Indicat ions:Insulin resistance TAKE ONE TABLET BY MOUTH 2 TIMES A DAY WITHMORNING AND EVENING MEALS 180 Tablet 1 3 07/20/19 24 Discontinued documented as of this encounter (statuses as of 07/20/2023) Active Problems Problem Noted Date Diagnosed Date [...] as of this encounter (statuses as of 07/20/2023) Resolved Problems Problem Noted Date Diagnosed Date [...] MILD 05/06/200012/30 ACUTE SINUSITIS NOS 03/16/2000 07/20/19 09 Overview: Resolved per Benign Acute Dxs Protocol #3 Unspecified viral infection, in conditions classified elsewhere and of unspecified site 03/16/2000 01/09/2010 DYSFUNCT EUSTACHIAN TUBE 03/16/200004/2010 PHARYNGITIS 03/16/2000 01/09/2010 documented as of this encounter (statuses as of 07/20/2023) Immunizations Name Administration Dates Next Due H1N1 2009 Influenza, IM 06/22/2009 HPV Vaccine, 4-Valent 08/11/2012,01/15/2012,0210/2011 [...] encounter Miscellaneous Notes * Telephone Encounter - Brando Ovalle [facility] - 07/20/2023 7:46 AM ESTSigned Prescriptions: Disp Refills metFORMIN HCl 500 MG Oral Tablet (Glucopha*180 Ta*1 Sig: TAKE ONE TABLET BY MOUTH 2 TIMES A DAY WITHMORNING AND EVENING MEALSAuthorizing Provider: CHRISTA NOEL User: BRANDO OVALLE documented in this encounter Plan of Treatment Upcoming Encounters Date Type Department Care Team (Late st Contact Info) Description 07/20/2023 8:30 AM EST Office Visit [facility] [address] [facility], [place] [address] Christ[facility] Noel [facility] [address] [facility] [address] Scheduled Orders Name Type Priority Associated Diagnoses Orde r Schedule LIPID PANEL WITH DIRECT LDL IF TG IS HIGH Lab Routine Encounter for long-term (current) use of other medications Expected: 07/20/2023 (Approximate), Expires: 07/20/2024 Health Maintenance Due Date Last Done Comments [...] 08/07/2005, 07/26/1998, Additional history exists COVID-19 Vaccine (2022- season) 2023 Influenza Vaccine (FLU shot) (#1) [...] Not on filedocumented as of this encounter Visit Diagnoses Diagnosis Encounter for long-term (current) use of other medications- Primary Insulin resistance Dysmetabolic Syndrome X documented in this encounter Care Teams Treasury Specialist Relationship Specialty Start Date End Date Christa Noel DO [address] [place] [address] PCP - General Family Medicine 12/24/22 documented as of this encounter
--- OUTSIDE RECORDS SUMMARY | 2023-07-26 20:29 | External Medical Summary | Summary of Care ---
Author Name Unknown Organization [facility] Address [address] [place] [address] Phone [phone] Care Team Providers Care Metaphysician Name Role Phone Christa Noel DO Primary Care Provider + [phone] Reason for Visit * Reason Onset Date Comments Medication Refill 02/04/2023 Encounter Details Date Type Department Care Team Description 02/04/2023 Refill Formerly [facility] [address] [place] [address] Christa Noel DO [address] [place] [address] Tension headache Allergies Active Allergy Reactions Severity Noted Date Comments Aspirin Rash 01/19/2015 Bee Venom 08/29/2014 [place] Hives 08/11/2012 Haloperidol Lactate 02/16/2019 Catatonia-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 Lactose 05/05/2017 documented as of this encounter (statuses as of 02/06/2023) Medications Medication Sig Dispensed Refills Start Date End Date Status Ammonium Lactate (LAC-HYDRIN) 12 % creamIndications:Ke ratosis pilaris Apply topically to affected area 2 times a day. To affected area on upper arms 385 g 11 01/05/2018 Active ondansetron (ZOFRAN) 4 MG TabletIndications:N ausea and vomiting, intractability of vomiting not specified, unspecified vomiting type Take 1 Tab by mouth every 6 hours as needed for Nausea. 30 Tab 0 11/12/2018 Active hydrOXYzine HCl 25 MG tablet 1 Tablet. 0 01/13/2019 Active loratadine (ALLERGY RELIEF) 10 MG TabletIndications:C [...] rhinitis, unspecified seasonality, unspecified trigger Administer 1 [place] into nostril in the morning and 1 [place] before bedtime. 30 mL 12 12/24/2022 Active metFORMIN HCl 500 MG Oral Tablet (Glucophage)Indicat ions:Insulin resistance TAKE ONE TABLET BY MOUTH 2 TIMES A DAY WITHMORNING AND EVENING MEALS 180 Tablet 1 12/24/2022 Active Magnesium 400 MG Oral TabletIndications:T ension headache Take 1 Tablet by mouth at bedtime. 100 Tablet 1 02/05/2023 Active Riboflavin 400 MG Oral CapsuleIndications: Tension headache Take 1 Capsule by mouth in the morning. 100 Capsule 1 02/05/2023 Active Magnesium 400 MG Oral TabletIndications:T ension headache Take by mouth 1 Tablet at bedtime . 100 Tablet 1 02/21/2022 02/05/20 Discontinu ed(Refill) Riboflavin 400 MG Oral CapsuleIndications: Tension headache Take by mouth 1 Capsule in the morning. 100 Capsule 1 02/21/2022 02/05/20 Discontinu ed(Refill) documented as of this encounter (statuses as of 02/06/2023) Active Problems Problem Noted Date Body mass [...] as of this encounter (statuses as of 02/06/2023) Resolved Problems Problem Noted Date Resolved Date [...] as of this encounter (statuses as of 02/06/2023) Immunizations Name Administration Dates Next Due DTP/HIB (Tetramune) 03/20/1994,1993,1993 DTWP - Dipth/Tet/Whole Cell Pertussis 02/12/1995 DTaP Dipth/Tet/Acell Pertussis (Infanrix), Peds 07/26/1998 H1N1 2009 Influenza, IM 06/22/2009 HPV Vaccine, 4-Valent 08/11/2012,01/15/2012,10/2011 Haemophilius B (HIB), unspecified 11/05/1994 Hepatitis B Vaccine 1993,1993,1993 MMR - Measles/Mumps/Rubella Vaccine 07/26/1998,0 11/05/1994 Meningococcal Polysaccharide Vaccine ([place]) 07/17/2008 OPV - Polio Virus Vaccine (Oral) 999,02/12/1995,03/20/1994,09/1993 PPD 03/31/2006,08/28/2005 Pneumococcal Polysaccharide PPV23 (Pneumovax) 08/11/2012 Seasonal Influenza, PF, 6 mo ns & Above, IM , (Flulaval) 02/21/2022,03/01/2020,03/29/2019,04/01,02/26/2017 Seasonal Influenza, Quadriva lent, No Preserve, IM 02/20/2016 Seasonal Influenza, Split, I IV3, With Preserve, Inj 02/16/2015,04/04/2014,02/11/2013,05/01,04/18/2011,07/17/2009,04/02/20 07,03/31/2006 02/17/2016 TB Karlee Test 07/09/1994 TD, Preservative Free 01/15/2012 TDAP (age 10 and older)(Boostrix) 08/07/2005 Varicella Vaccine (Chicken Pox) 07/17/2008,11/24 documented as of this encounter Social History [...] encounter Miscellaneous Notes * Telephone Encounter - Veronica Pham LPN - 02/05/2023 10:02 AM EDT Attempted to call, no answer, left message to return call When patient calls back, please tell her which meds were refilled and ask if she needs any other meds refills (call or contact centre manager may give patient this message) Reason for Call: Medication Refill Contact: Telephone Call Contact Type: Medication Total Time including non face to face (minutes): 5 * Telephone Encounter - Christa Noel DO - 02/05/2023 9:48 AM EDTSigned Prescriptions: Disp Refills Magnesium 400 MG Oral Tablet 100 Ta*1 Sig: Take 1 Tablet by mouth at bedtime. Authorizing Provider: CHRISTA NOEL Riboflavin 400 MG Oral Capsule 100 Ca*1 Sig: Take 1 Capsule by mouth in the morning. Authorizing Provider: CHRISTA NOEL * Telephone Encounter - ANTHONY Brewster - 02/04/2023 4:00 PM EDT Pt left after hours vm for refill on her "migraine medicine" but did not leave names Did you pend patient's preferred pharmacy and medication before forwarding?yes Pharmacy: [id number] [address] [facility] Pending Prescriptions: Disp Refills Magnesium 400 MG Oral Tablet 100 Ta*1 Sig: Take 1 Tablet by mouth at bedtime. Riboflavin 400 MG Oral Capsule 100 Ca*1 Sig: Take 1 Capsule by mouth in the morning. Last Visit: 12/24/2022 (in office), Visit date not found (telemedicine) Next Visit: Visit date not found If no future appointments scheduled, and last appointment is greater than a year ago, please schedule patient for a follow-up appointment Last date the medication was ordered: 02/21/22 Is this request for a controlled substance?No Urine Drug Screen:No results found for this or any previous visit. Patient Phone Numbers Labs: Lab Results Component Value Date/Time CREAT 0.8 12/24/2022 02:50 PM CREAT 0.8 06/12/2020 01:17 PM POTASSIUM 4.4 12/24/2022 02:50 PM POTASSIUM 4.2 06/12/2020 01:17 PM TSH 2.34 12/24/2022 02:50 PM TSH 1.69 06/12/2020 01:17 PM TSH 3.03 05/17/1996 02:35 PM LDLCALC 47 09/21/2017 10:49 AM LDLDIRECT 104 02/12/2022 11:41 AM LDLDIRECT 103 06/12/2020 01:17 PM LDLDIRECT 89 08/11/2012 10:16 AM ALT 31 02/12/2022 11:41 AM ALT 48 (H) 06/12/2020 01:17 PM HGBA1C 6.0 (H) 12/24/2022 02:50 PM HGBA1C 5.4 06/12/2020 01:17 PM Pt l documented in this encounter Plan of Treatment Upcoming Encounters Date Type Specialty Care Team Description 04/15/2023 Office Visit Orthopedics Ruben Lopez MD [address] [place] [address] Health Maintenance Due Date Last Done Comments [...] GARDASIL-HPV IMMUNIZATION SERIES Completed 08/11/2012, 01/15/2012, 07/07/2011 Hepatitis C Screening Completed 03/02/2014 documented as of this encounter Medical Devices Not on filedocumented as of this encounter Visit Diagnoses Diagnosis Tension headache documented in this encounter Care Teams Metaphysician Relationship Specialty Start Date End Date Christa Noel, [address] [place] [address] PCP - General Family Medicine 12/24/22 documented as of this encounter
--- OUTSIDE RECORDS SUMMARY | 2023-07-26 20:29 | External Medical Summary | Summary of Care ---
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 Lactose 05/05/2017 documented as of this encounter (statuses as of 04/15/2023) Medications Medication Sig Dispensed Refills Start Date [...] rhinitis, unspecified seasonality, unspecified trigger Administer 1 [place] into nostril in the morning and 1 [place] before bedtime. 30 mL 12 12/24/2022 Active [...] as of this encounter (statuses as of 04/15/2023) Active Problems Problem Noted Date Diagnosed Date [...] as of this encounter (statuses as of 04/15/2023) Resolved Problems Problem Noted Date Diagnosed Date [...] as of this encounter (statuses as of 04/15/2023) Immunizations Name Administration Dates Next Due H1N1 [...] encounter Miscellaneous Notes * Telephone Encounter - Natalie Love LPN - 04/14/2023 1:19 PM EST Receieved form from [employer] to be filled out by Doctor. Form was placed in provider's boxof papers on desk. documented in this encounter Plan of Treatment Upcoming Encounters Date Type Department Care Team (Late st Contact Info) Description 04/15/2023 3:00 PM EST Office Visit Orthopaedics [facility] [address] [place] [address] Ruben Lopez MD [address] [place] [address] Health Maintenance Due Date Last Done Comments [...] filedocumented as of this encounter Care Teams Associate Automation Engineer Relationship Specialty Start Date End Date Sussy Gallagher DO [address] [facility] [place] [address] PCP - General Family Medicine 12/24/22 documented as of this encounter
--- OUTSIDE RECORDS SUMMARY | 2023-07-26 20:29 | External Medical Summary | Summary of Care ---
Author Name Unknown Organization [facility] Address [address] [place] [address] Phone [phone] Care Team Providers Care Contact Center Director Name Role Phone Sussy Gallagher DO Primary Care Provider + [phone] Reason for Visit * Reason Onset Date Comments Advice 06/23/2023 Encounter Details Date Type Department Care Team (Late st Contact Info) Description 06/23/2023 Telephone [facility] [address] [place] [address] Sussy Gallagher DO [address] [place] [address] Advice Allergies Active Allergy Reactions Criticality Noted Date Comments Aspirin Rash 01/19/2015 Bee Venom 08/29/2014 [place] Hives 08/11/2012 Haloperidol Lactate 02/16/2019 Catatonia-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 Lactose 05/05/2017 documented as of this encounter (statuses as of 07/03/2023) Medications Medication Sig Dispensed Refills Start Date [...] rhinitis, unspecified seasonality, unspecified trigger Administer 1 [place] into nostril in the morning and 1 [place] before bedtime. 30 mL 12 12/24/2022 Active [...] the morning. 100 Capsule 1 02/05/2023 Active predniSONE 20 MG Oral Tablet (Deltasone)Indicatio ns:Periorbital edema of both eyes Take 2 Tablets by mouth daily for 4 days, THEN 1 Tablet daily for 4 days, THEN 0.5 Tablets daily for 4 days. 14 Tablet 0 06/16/2023 4 Cephalexin 500 MG Oral CapsuleIndications:P eriorbital edema of both eyes Take 1 Capsule by mouth in the morning and 1 Capsule before bedtime. Do all this for 7 days. 14 Capsule 0 06/16/2023 4 documented as of this encounter (statuses as of 07/03/2023) Active Problems Problem Noted Date Diagnosed Date [...] as of this encounter (statuses as of 07/03/2023) Resolved Problems Problem Noted Date Diagnosed Date [...] as of this encounter (statuses as of 07/03/2023) Immunizations Name Administration Dates Next Due DTP/HIB [...] encounter Miscellaneous Notes * Telephone Encounter - Nan Post LPN - 06/23/2023 3:07 PM EST Contacted Karen (Electrotyper Apprentice) at [employer]. Patient had a telemed appt on 06/[address] Robin. No redness or swelling at this time. Pus still coming out of both eyes. Thick yellow to white drainage. When she wakes up, both eyes are crusted shut. Left eye is painful - unable to put any pressure (lay on it) Right eye has minimal discomfort. Denies itching, chills, feverish. Overall, there is improvement. 1 day of Keflex left. Completed the Prednisone. In person appt scheduled. --06/[address] Ashford. * Telephone Encounter - Samanta Medina OSA - 06/23/2023 2:35 PM EST Calling in to see if pt needs to be seen again for double eye infection that she was previous treated for if she can get more antibiotics. army manager said it's starting to clear up but it's not completely and she believes she needs more antibiotics. Please call back with whatever is decided documented in this encounter Plan of Treatment Health Maintenance [...] filedocumented as of this encounter Care Teams Contact Center Director Relationship Specialty Start Date End Date Sussy Gallagher DO [address] [place] [address] PCP - General Family Medicine 12/24/22 documented as of this encounter
--- OUTSIDE RECORDS SUMMARY | 2023-07-26 20:29 | External Medical Summary | Summary of Care ---
Author Name Unknown Organization [facility] Address [address] [place] [address] Phone [phone] Care Team Providers Care Stereoplotter Operator Name Role Phone Sussy Gallagher Primary Care Provider + [phone] Reason for Visit * Reason Comments Acute Encounter Details Date Type Department Care Team (Latest Contact Info) Description 06/16/2023 6:40 PM [facility] [address] [place] [address] Jenny Robin MD [address] [place] [address] Periorbital edema of both eyes*; Acute conjunctivitis of both eyes, unspecified acute conjunctivitis type Allergies Active Allergy Reactions Criticality Noted Date Comments Aspirin Rash 01/19/2015 Bee Venom 08/29/2014 [place] Hives 08/11/2012 Haloperidol Lactate 02/16/2019 Catatonia-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 Lactose 05/05/2017 documented as of this encounter (statuses as of 06/16/2023) Medications Medication Sig Dispensed Refills Start Date [...] rhinitis, unspecified seasonality, unspecified trigger Administer 1 [place] into nostril in the morning and 1 [place] before bedtime. 30 mL 12 12/24/2022 Active [...] 4 days. 14 Tablet 0 06/16/2023 4 Active Cephalexin 500 MG Oral CapsuleIndications:P eriorbital edema of both eyes Take 1 Capsule by mouth in the morning and 1 Capsule before bedtime. Do all this for 7 days. 14 Capsule 0 06/16/2023 4 Active documented as of this encounter (statuses as of 06/16/2023) Active Problems Problem Noted Date Diagnosed Date [...] as of this encounter (statuses as of 06/16/2023) Resolved Problems Problem Noted Date Diagnosed Date [...] as of this encounter (statuses as of 06/16/2023) Immunizations Name Administration Dates Next Due H1N1 2009 Influenza, IM 06/22/2009 HPV Vaccine, 4-Valent 08/11/2012,01/15/2012,02/10/2011 Meningococcal Polysaccharide Vaccine ([place]e) 07/17/2008 PPD 03/31/2006,08/28/2005 [...] on file documented as of this encounter Progress Notes * Jenny Robin MD - 06/16/2023 6:35 PM EST Patient location: HOME. I was in a hospital or clinic location. After connecting through televideo,patient was verified with two unique identifiers. Patient (or authorized legal lead generation representative) was then informed that this was a Telemedicine visit and being conducted confidentially over secure lines. Methods to assure confidentiality were taken. Patient acknowledged consent and understanding of pr ivacy and security of the Telemedicine visit. The patient agreed to participate. Subjective Chief Complaint Patient presents with Acute HPI: Fidelina Elliott is a 27 year old female. The following issues were addressed today: Patient presents today via telemedicine for pain, swelling, and redness around her eyes since this morning. She states the whites of her eyes also look red. She has been having a consistent yellow/green drainage from her eyes over the course of the day. She does not wear contact lenses. Unable to take temperature but her sister is present on the call and says "she's burning up." Feels like swelling and drainage have worsened since this morning. She denies vision changes. Has had styes before and thinks this is what may be causing her symptoms. Review of Systems: See HPI Objective There were no vitals taken for this visit. Wt Readings from Last 3 Encounters: 12/24/22 (!) 145.7 kg (321 lb 3.2 oz) 02/21/22 (!) 138.7 kg (305 lb 12.8 oz) 09/21/20 132.6 kg (292 lb 6.4 oz) BP Readings from Last 3 Encounters: 12/24/22 136/84 02/21/22 138/82 09/21/20 140/86 General: Well-appearing, no acute distress Eyes: Edema and erythema of anterior eyelids bilaterally, unable to determine if conjunctiva are injected due to video quality but patient reports they are red Assessment & Plan 1. Periorbital edema of both eyes 2. Acute conjunctivitis of both eyes, unspecified acute conjunctivitis type Discussed with patient that symptoms are not consistent with stye and are more concerning for a cellulitis. Cannot rule-out an orbital cellulitis, especially with possible fever and acutely worseningsymptoms. I recommended that she go to the ER for further evaluation. The patient refused to seek care in the emergency room. Will start antibiotic and prednisone outpatient with close follow-up in-pe rson. We discussed risks of possible orbital cellulitis including loss of vision or . She agreed that if anything worsens overnight she will go to the ER. - predniSONE 20 MG Oral Tablet (Deltasone); Take 2 Tablets by mouth daily for 4 days, THEN 1 Tabletdaily for 4 days, THEN 0.5 Tablets daily for 4 days. Dispense: 14 Tablet; Refill: 0 - Cephalexin 500 MG Oral Capsule; Take 1 Capsule by mouth in the morning and 1 Capsule before bedtime. Do all this for 7 days. Dispense: 14 Capsule; Refill: 0 Follow Up: Return for follow-up in person in 1-2 days. This note was electronically signed by Jenny Robin MD documented in this encounter Plan of Treatment [...] as of this encounter Visit Diagnoses Diagnosis Periorbital edema of both eyes- Primary Acute conjunctivitis of both eyes, unspecified acute conjunctivitis type documented in this encounter Care Teams Stereoplotter Operator Relationship Specialty Start Date End Date Sussy Gallagher DO [address] [place] [address] PCP - General Family Medicine 12/24/22 documented as of this encounter
--- OUTSIDE RECORDS SUMMARY | 2023-07-26 20:29 | External Medical Summary | Summary of Care ---
Author Name Unknown Organization [facility] Address [address] [place] [address] Phone [phone] Care Team Providers Care Medical Sales Representative Name Role Phone Sussy Gallagher DO Primary Care Provider + [phone] Reason for Visit * Reason Onset Date Comments Med Request 06/16/2023 Encounter Created in Error 06/16/2023 Encounter Details Date Type Department Care Team (Late st Contact Info) Description 06/16/2023 Telephone [facility] [address] [place] [address] Sussy Gallagher DO [address] [place] [address] Med Request; Encounter Created in Error Allergies Active Allergy Reactions Criticality Noted Date Comments Aspirin Rash 01/19/2015 Bee Venom 08/29/2014 [place] Hives 08/11/2012 Haloperidol Lactate 02/16/2019 Catatonia-reported by [...] rhinitis, unspecified seasonality, unspecified trigger Administer 1 [place] into nostril in the morning and 1 [place] before bedtime. 30 mL 12 12/24/2022 Active [...] encounter Miscellaneous Notes * Telephone Encounter - Becky Orourke OSA - 06/16/2023 5:40 PM EST ERROR documented in this encounter Plan of Treatment Upcoming Encounters Date Type Department Care Team (Late st Contact Info) Description 06/16/2023 6:40 PM EST Telemedicine Family Practice [facility] [place] [address] [place] [address] Jenny Robin MD [address] [place] [address] Health Maintenance Due Date Last Done Comments [...] filedocumented as of this encounter Care Teams Medical Sales Representative Relationship Specialty Start Date End Date Sussy Gallagher DO [address] [facility] [place] [address] PCP - General Family Medicine 12/24/22 documented as of this encounter
--- OUTSIDE RECORDS SUMMARY | 2023-07-26 20:29 | External Medical Summary | Summary of Care ---
Author Name Unknown Organization [facility] Address [address] [place] [address] Phone [phone] Care Team Providers Care Lamp Developer Name Role Phone Sussy Gallagher DO Primary Care Provider + [phone] Reason for Visit * Reason Onset Date Comments Advice 06/23/2023 Encounter Details Date Type Department Care Team (Late st Contact Info) Description 06/23/2023 Telephone [facility] [address] [place] [address] Sussy Gallagher DO [address] [place] [address] Advice Allergies Active Allergy Reactions Criticality Noted Date Comments Aspirin Rash 01/19/2015 Bee Venom 08/29/2014 [place] Hives 08/11/2012 Haloperidol Lactate 02/16/2019 Catatonia-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 Lactose 05/05/2017 documented as of this encounter (statuses as of 06/23/2023) Medications Medication Sig Dispensed Refills Start Date [...] rhinitis, unspecified seasonality, unspecified trigger Administer 1 [place] into nostril in the morning and 1 [place] before bedtime. 30 mL 12 12/24/2022 Active [...] as of this encounter (statuses as of 06/23/2023) Active Problems Problem Noted Date Diagnosed Date [...] as of this encounter (statuses as of 06/23/2023) Resolved Problems Problem Noted Date Diagnosed Date [...] as of this encounter (statuses as of 06/23/2023) Immunizations Name Administration Dates Next Due H1N1 [...] Post LPN - 06/23/2023 3:07 PM EST Contacting Karen (Foundry Equipment Mechanic) at [employer]. Patient had a telemed appt on 06/16 [...] for if she can get more antibiotics. manager service desk said it's starting to clear up but it's not completely and she believes she needs more antibiotics. Please call back with whatever is decided documented in this encounter Plan of Treatment Upcoming Encounters Date Type Department Care Team (Late st Contact Info) Description 06/24/2023 4:40 PM EST Office Visit [facility] [address] [place] [address] Veto Ashford MD [address] [place] [address] Health Maintenance Due Date Last Done Comments [...] filedocumented as of this encounter Care Teams Lamp Developer Relationship Specialty Start Date End Date Sussy Gallagher DO [address] [place] [facility] [place] [address] PCP - General Family Medicine 12/24/22 documented as of this encounter
--- OUTSIDE RECORDS SUMMARY | 2023-07-26 20:30 | External Medical Summary | Summary of Care ---
Author Name Unknown Organization [facility] Address [address] [place] [address] Phone [phone] Care Team Providers Care Network Support Name Role Phone Christa Noel DO Primary Care Provider + [phone] Reason for Visit * Reason Onset Date Comments Medication Refill 02/04/2023 Encounter Details Date Type Department Care Team Description 02/04/2023 Refill [facility] [address] [place] [address] Christa Noel DO [address] [place] [address] Tension headache Allergies Active Allergy Reactions Severity Noted Date Comments Aspirin Rash 01/19/2015 Bee Venom 08/29/2014 [place] Hives 08/11/2012 Haloperidol Lactate 02/16/2019 Catatonia-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 Lactose 05/05/2017 documented as of this encounter (statuses as of 02/05/2023) Medications Medication Sig Dispensed Refills Start Date [...] rhinitis, unspecified seasonality, unspecified trigger Administer 1 [place] into nostril in the morning and 1 [place] before bedtime. 30 mL 12 12/24/2022 Active [...] as of this encounter (statuses as of 02/05/2023) Active Problems Problem Noted Date Body mass [...] as of this encounter (statuses as of 02/05/2023) Resolved Problems Problem Noted Date Resolved Date [...] as of this encounter (statuses as of 02/05/2023) Immunizations Name Administration Dates Next Due DTP/HIB (Tetramune) 03/20/1994,1993,1993 DTWP - Dipth/Tet/Whole Cell Pertussis 02/12/1995 DTaP - Dipth/Tet/Acell Pertussis 07/26/1998 H1N1 2009 Influenza, IM 06/22/2009 HPV Vaccine, 4-Valent 08/11/2012,01/15/2012,10/2011 Haemophilus B (HIB) 11/05/1994 Hepatitis B Vaccine 1993,1993,1993 MMR - [...] she needs any other meds refills (call center coordinator may give patient this message) Reason for [...] NOEL * Telephone Encounter - ANTHONY Brewster Tech - 02/04/2023 4:00 PM EDT Pt left after hours vm for refill on her "migraine medicine" but did not leave names Did you pend patient's preferred pharmacy and medication before forwarding?yes Pharmacy: [id number] [address] [facility] Pending Prescriptions: Disp Refills Magnesium 400 MG [...] Lopez MD [address] [place] [address] Health Maintenance Due Date Last Done Comments [...] headache documented in this encounter Care Teams Network Support Relationship Specialty Start Date End Date Christa Noel, [address] [place] [address] PCP - General Family Medicine 12/24/22 documented as of this encounter
--- OUTSIDE RECORDS SUMMARY | 2023-07-26 20:30 | External Medical Summary | Summary of Care ---
Author Name Unknown Organization [facility] Address [address] [place] [address] Phone [phone] Care Team Providers Care Sugar Chipper Machine Operator Name Role Phone Christa Noel DO Primary Care Provider + [phone] Reason for Visit * Reason Onset Date Comments Medication Refill 02/04/2023 Encounter Details Date Type Department Care Team Description 02/04/2023 Refill [facility] [address] [place] [address] Christa Noel DO [address] [place] [address] Tension headache Allergies Active Allergy Reactions Severity Noted Date Comments Aspirin Rash 01/19/2015 Bee Venom 08/29/2014 [place] Hives 08/11/2012 Haloperidol Lactate 02/16/2019 Catatonia-reported by [...] rhinitis, unspecified seasonality, unspecified trigger Administer 1 [place] into nostril in the morning and 1 [place] before bedtime. 30 mL 12 12/24/2022 Active [...] if she needs any other meds refills (scallop dredger may give patient this message) Reason for [...] pharmacy and medication before forwarding?yes Pharmacy: [id number] [address] [facility] Pending Prescriptions: Disp Refills Magnesium 400 [...] Lopez MD [address] [place] [address] Health Maintenance Due Date Last Done Comments [...] headache documented in this encounter Care Teams Sugar Chipper Machine Operator Relationship Specialty Start Date End Date Christa Noel, [address] [place] [address] PCP - General Family Medicine 12/24/22 documented as of this encounter
--- OUTSIDE RECORDS SUMMARY | 2023-07-26 20:30 | External Medical Summary | Summary of Care ---
Author Name Unknown Organization [facility] Address [address] [place] [address] Phone [phone] Care Team Providers Care Felt Hat Pouncing Operator Hand Name Role Phone Christa Noel DO Primary Care Provider + [phone] Reason for Visit * Reason Onset Date Comments Medication Refill 02/04/2023 Encounter Details Date Type Department Care Team Description 02/04/2023 Refill [facility] [address] [place] [address] Christa Noel DO [address] [place] [address] Tension headache Allergies Active Allergy Reactions Severity Noted Date Comments Aspirin Rash 01/19/2015 Bee Venom 08/29/2014 [place] Hives 08/11/2012 Haloperidol Lactate 02/16/2019 Catatonia-reported by [...] rhinitis, unspecified seasonality, unspecified trigger Administer 1 [place] into nostril in the morning and 1 [place] before bedtime. 30 mL 12 12/24/2022 Active [...] 02/05/2023) Immunizations Name Administration Dates Next Due H1N1 2009 Influenza, IM 06/22/2009 HPV Vaccine, 4-Valent 08/11/2012,01/15/2012,10/2011 Meningococcal Polysaccharide Vaccine ([place]) 07/17/2008 PPD 03/31/2006,08/28/2005 [...] encounter Miscellaneous Notes * Telephone Encounter - Christa Noel DO [...] and medication before forwarding?yes Pharmacy: [facility][id number] [address] [facility] Pending Prescriptions: Disp Refills Magnesium 400 MG [...] Lopez MD [address] [place] [address] Health Maintenance Due Date Last Done Comments [...] headache documented in this encounter Care Teams Felt Hat Pouncing Operator Hand Relationship Specialty Start Date End Date Christa Noel, [address] [place] [address] PCP - General Family Medicine 12/24/22 documented as of this encounter
--- OUTSIDE RECORDS SUMMARY | 2023-07-26 20:30 | External Medical Summary | Summary of Care ---
Author Name Unknown Organization [facility] Address [address] [place] [address] Phone [phone] Care Team Providers Care Stock Supervisor Name Role Phone Sussy Gallagher DO Primary Care Provider [phone] Reason for Referral * Evaluate & Treat - Unlimited Visits (Within 30 days (routine)) - Pending Review Specialty Diagnoses / Procedures Referred By Kapil almonte Referred To Contact Orthopaedic Surgery / Orthopedics Diagnoses Ganglion of wrist, unspecified laterality Leticia Varela PA-C [address] [place] [address] Referral ID Status Reason Start Date Expiration Date Visits Requested Visits Authorized [id number] Pending Review Specialty Services Required 01/28/[phone] Question Answer Referral Priority Within 30 days (routine) What body part is the patient being seen for? Forearm/Wrist What condition is the patient being seen for? Tumor - all ages - cyst Reason for Visit * Reason Onset Date Comments Advice 01/27/2023 Encounter Details Date Type Department Care Team Description 01/27/2023 Telephone [facility] [address] [place] [address] Sussy Gallagher DO [address] [place], [place] [phone] Advice Allergies Active Allergy Reactions Severity Noted Date Comments Aspirin Rash 01/19/2015 Bee Venom 08/29/2014 [place] Hives 08/11/2012 Haloperidol Lactate 02/16/2019 Catatonia-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 Lactose 05/05/2017 documented as of this encounter (statuses as of 01/30/2023) Medications Medication Sig Dispensed Refills Start Date [...] MG Oral Capsule (PROzac) 0 09/10/2020 Active Magnesium 400 MG Oral TabletIndications:Te nsion headache Take by mouth 1 Tablet at bedtime . 100 Tablet 1 02/21/2022 Active Riboflavin 400 MG Oral CapsuleIndications:T ension headache Take by mouth 1 Capsule in the morning. 100 Capsule 1 02/21/2022 Active Cyclobenzaprine HCl 10 MG Oral Tablet [...] rhinitis, unspecified seasonality, unspecified trigger Administer 1 [place] into nostril in the morning and 1 [place] before bedtime. 30 mL 12 12/24/2022 Active metFORMIN HCl 500 MG Oral Tablet (Glucophage)Indicati ons:Insulin resistance TAKE ONE TABLET BY MOUTH 2 TIMES A DAY WITHMORNING AND EVENING MEALS 180 Tablet 1 12/24/2022 Active documented as of this encounter (statuses as of 01/30/2023) Active Problems Problem Noted Date Body mass [...] as of this encounter (statuses as of 01/30/2023) Resolved Problems Problem Noted Date Resolved Date [...] as of this encounter (statuses as of 01/30/2023) Immunizations Name Administration Dates Next Due DTP/HIB [...] Miscellaneous Notes * Telephone Encounter - CHE Robles - 01/30/2023 11:01 AM EDT Scheduled. 01/30/2023 * Telephone Encounter - CHE Robles - 01/29/2023 10:24 AM EDT Called Marie at [facility] to schedule. LMOM to return my call to schedule. 01/29/2023 * Telephone Encounter - Leticia Varela PA-C - 01/28/2023 5:19 PM EDT Pt would need to see ortho Ganglion of wrist, unspecified laterality (Primary) - ORTHOPAEDICS REFERRAL OP Leticia Varela PA-C 01/28/2023 5:19 PM * Telephone Encounter - CHE Cota - 01/28/2023 1:56 PM EDT Marie @ [facility] calling in regard to pt. States pt had asked her to call and check status of message. Advised Marie of 24-48 hr turnaround time, and that if no answer by tmrw @ 3, to pls call back in for f/u. * Telephone Encounter - CHE Yao - 01/27/2023 2:48 PM EDT Pt called in stated the cyst on her wrist is very painful . She was told to call back if it still bothered and provider would have removed . She flores like a call back to discuss how to go about getting it removed documented in this encounter Plan of Treatment Upcoming Encounters Date Type Specialty Care Team Description 04/15/2023 Office Visit Orthopedics Ruben Lopez MD [address] [place] [address] Scheduled Referrals Name Type Priority Associated Diagnoses Orde r Schedule ORTHOPAEDICS REFERRAL OP Referral Within 30 days (routine) Ganglion of wrist, unspecified laterality Ordered: 01/28/2023 Health Maintenance Due Date Last Done Comments [...] as of this encounter Visit Diagnoses Diagnosis Ganglion of wrist, unspecified laterality- Primary documented in this encounter Care Teams Stock Supervisor Relationship Specialty Start Date End Date Sussy Gallagher, DO [address] [place] [address] PCP - General Family Medicine 12/24/22 documented as of this encounter
--- OUTSIDE RECORDS SUMMARY | 2023-07-26 20:30 | External Medical Summary | Summary of Care ---
Author Name Unknown Organization [facility] Address [address] [place] [address] Phone [phone] Care Team Providers Care Warm In Name Role Phone Sussy Gallagher DO Primary Care Provider [phone] Reason for Referral * Evaluate & Treat - Unlimited Visits (Within 30 days (routine)) - Pending Review Specialty Diagnoses / Procedures Referred By Kapil almonte Referred To Contact Orthopaedic Surgery / Orthopedics Diagnoses Ganglion of wrist, unspecified laterality Leticia Varela PA-C [address] [place] [address] Referral ID Status Reason Start Date Expiration Date Visits Requested Visits Authorized [id number] Pending Review Specialty Services Required 01/28/[phone] Question Answer Referral Priority Within 30 days (routine) What body part is the patient being seen for? Forearm/Wrist What condition is the patient being seen for? Tumor - all ages - cyst Reason for Visit * Reason Onset Date Comments Advice 01/27/2023 Encounter Details Date Type Department Care Team Description 01/27/2023 Telephone [facility] [address] [place] [address] Sussy Gallagher DO [address] [place], [place] [phone] Advice Allergies Active Allergy Reactions Severity Noted Date Comments Aspirin Rash 01/19/2015 Bee Venom 08/29/2014 [place] Hives 08/11/2012 Haloperidol Lactate 02/16/2019 Catatonia-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 Lactose 05/05/2017 documented as of this encounter (statuses as of 01/29/2023) Medications Medication Sig Dispensed Refills Start Date [...] rhinitis, unspecified seasonality, unspecified trigger Administer 1 [place] into nostril in the morning and 1 [place] before bedtime. 30 mL 12 12/24/2022 Active metFORMIN HCl 500 MG Oral Tablet (Glucophage)Indicati ons:Insulin resistance TAKE ONE TABLET BY MOUTH 2 TIMES A DAY WITHMORNING AND EVENING MEALS 180 Tablet 1 12/24/2022 Active documented as of this encounter (statuses as of 01/29/2023) Active Problems Problem Noted Date Body mass [...] as of this encounter (statuses as of 01/29/2023) Resolved Problems Problem Noted Date Resolved Date [...] as of this encounter (statuses as of 01/29/2023) Immunizations Name Administration Dates Next Due DTP/HIB [...] Miscellaneous Notes * Telephone Encounter - CHE oRbles - 01/29/2023 10:24 AM EDT [facility] to schedule. LMOM to return my call to schedule. 01/29/2023 * Telephone Encounter - Leticia Varela PA-C - 01/28/2023 5:19 PM EDT Pt would need to see ortho Ganglion of wrist, unspecified laterality (Primary) - ORTHOPAEDICS REFERRAL OP Leticia Varela PA-C 01/28/2023 5:19 PM * Telephone Encounter - CHE Cota - 01/28/2023 1:56 PM EDT Marie @ [facility] calling in regard to pt. States pt [...] documented in this encounter Plan of Treatment Scheduled Referrals Name Type Priority Associated Diagnoses [...] Primary documented in this encounter Care Teams Warm In Relationship Specialty Start Date End Date Sussy Gallagher DO [address] [place] [phone] PCP - General Family Medicine 12/24/22 documented as of this encounter
--- OUTSIDE RECORDS SUMMARY | 2023-07-26 20:30 | External Medical Summary | Summary of Care ---
Author Name Unknown Organization [facility] Address [address] [place] [address] Phone [phone] Care Team Providers Care Box Liner Name Role Phone Sussy Gallagher DO Primary Care Provider [phone] Reason for Referral * Evaluate & Treat - Unlimited Visits (Within 30 days (routine)) - Pending Review Specialty Diagnoses / Procedures Referred By Kapil almonte Referred To Contact Orthopaedic Surgery / Orthopedics Diagnoses Ganglion of wrist, unspecified laterality Leticia Varela PA-C [address] [place] [address] Referral ID Status Reason Start Date Expiration Date Visits Requested Visits Authorized [id number] Pending Review Specialty Services Required 01/28/[phone] Question Answer Referral Priority Within 30 days (routine) What body part is the patient being seen for? Forearm/Wrist What condition is the patient being seen for? Tumor - all ages - cyst Reason for Visit * Reason Onset Date Comments Advice 01/27/2023 Encounter Details Date Type Department Care Team Description 01/27/2023 Telephone [facility] [address] [place] [address] Sussy Gallagher DO [address] [place], [place] [phone] Advice Allergies Active Allergy Reactions Severity Noted Date Comments Aspirin Rash 01/19/2015 Bee Venom 08/29/2014 [place] Hives 08/11/2012 Haloperidol Lactate 02/16/2019 Catatonia-reported by [...] rhinitis, unspecified seasonality, unspecified trigger Administer 1 [place] into nostril in the morning and 1 [place] before bedtime. 30 mL 12 12/24/2022 Active [...] 01/29/2023 10:24 AM EDT Called Marie at [facility] to schedule. LMOM to return my call to schedule. 01/29/2023 * Telephone Encounter - Leticia Varela PA-C - 01/28/2023 5:19 PM EDT Pt would need to see ortho Ganglion of wrist, unspecified laterality (Primary) - ORTHOPAEDICS REFERRAL OP Leticia Varela PA-C 01/28/2023 5:19 PM * Telephone Encounter - CHE Cota - 01/28/2023 1:56 PM EDT Marie @ [facility] calling in regard to pt. States [...] Primary documented in this encounter Care Teams Box Liner Relationship Specialty Start Date End Date Sussy Gallagher DO [address] [place] [phone] PCP - General Family Medicine 12/24/22 documented as of this encounter
[2023-07-26 21:46] LABS: Appearance Urine Clear (Clear); Bilirubin Urine Negative (Negative); Blood Urine Negative (Negative); Color Urine Yellow; Glucose Urine UA Negative (Negative); Ketones Urine Negative (Negative); Leukocyte Esterase Urine Negative (Negative); Nitrite Urine Negative (Negative); Protein Urine Negative (Negative); Specific Gravity Urine 1.019 (1.000-1.030); Urobilinogen Urine Negative (Negative)
[2023-07-26 21:50] LABS: Basophils # (auto) 0.04 K/uL (0.00-0.20); Basophils % (auto) 0.3 %; Eosinophils # (auto) 0.28 K/uL (0.00-0.50); Eosinophils % (auto) 2.2 %; Hematocrit (blood only) 39.8 % (37.0-47.0); Hemoglobin 13.5 g/dl (12.0-16.0); Immature Granulocytes # (auto) 0.18 K/uL (0.01-0.20); Immature Granulocytes % (auto) 1.4 %; Lymphocytes # (auto) 3.21 K/uL (1.20-3.40); Lymphocytes % (auto) 25.3 %; Mean Corpuscular Hemoglobin 28.2 pg (25.0-34.0); Mean Corpuscular Hgb Conc 33.9 g/dL (32.0-36.0); Mean Corpuscular Volume 83.3 fL (80.0-100.0); Mean Platelet Volume 9.4 fL (9.4-12.4); Monocytes % (auto) 3.2 %; Neutrophils # (auto) 8.56 K/uL (1.40-6.50); Neutrophils % (auto) 67.6 %; Platelet Count 341 K/uL (130-400); RDW Coefficient of Variation 12.9 % (11.5-14.5); RDW Standard Deviation 38.7 fL (36.4-46.3); Red Blood Count 4.78 M/uL (4.20-5.40); White Blood Count 12.67 K/ul (4.8-10.8)
[2023-07-26 22:01] LABS: Acetaminophen < 3 ug/ml (10-30); Salicylate < 3.0 mg/dl (3.0-30)
[2023-07-26 22:08] LABS: Albumin Level 4.1 gm/dl (3.4-5.0); Bilirubin,Total 0.2 mg/dl (0.2-1.0); Calcium 9.4 mg/dl (8.6-10.3); Potassium 3.8 mmol/L (3.5-5.1)
[2023-07-26 22:14] LABS: Albumin Globulin Ratio 1.1 (0.9-2); BUN Creatinine Ratio 13.9 (10-20); Creatinine Clr Calc Pharmacy 171.9 ml/min; Est GFR (African American) 116.4 ml/min; Est GFR (Non-African American) 100.5 ml/min; Globulin 3.7 gm/dl (2.5-4.0); Total Protein 7.8 gm/dl (6.0-8.3)
[2023-07-26] MEDS: LORazepam 1 MG TAB SL STA (22:16)
[2023-07-26 22:17] LABS: Thyroid Stimulating Hormone 2.181 uIu/ml (0.300-4.500)
[2023-07-26 22:18] LABS: Amphetamines+Metham, Urine Neg (Neg); Barbiturates, Urine Neg (Neg); Benzodiazepine, Urine Neg (Neg); Cocaine, Urine Neg (Neg); MDMA (Ecstacy), Urine Pos (Neg); Marijuana, Urine Pos (Neg); Methadone, Urine Neg (Neg); Opiate, Urine Neg (Neg); Phencyclidine, Urine Neg (Neg)
[2023-07-26 22:35] LABS: Pregnancy Test, Urine Negative (Negative)
[2023-07-26 23:12] VITALS: O2SAT 97
--- NOTE | 2023-07-26 23:16 | Emergency Department Note ---
History of Present Illness General Chief complaint: Mental Health Evaluation Time Seen by Provider: 07/26/23 21:35 Source: patient, RN notes reviewed and old records reviewed Mode of arrival: ambulatory Limitations: no limitations History of Present Illness Maximum Pain Intensity: 8 This patient is a 28-year-old female who has a history of mental health illness and substance abuse, comes in after having thoughts of self-harm she thought about cutting her arm she does have history of cutting herself. She says she just wants to go home. She recently stopped meth about 3 days ago she lives with her mother and father she says there is been some tension as she has been trying to find her new place. Denies alcohol or other drugs. No systemic complaints she has history of asthma which has been stable. No fall or trauma. No numbness or weakness. Home Medications Medication Instructions Recorded Confirmed Type levothyroxine 50 mcg tablet 50 mcg PO QAM 02/15/19 07/26/23 History metformin 500 mg tablet 500 mg PO BID 02/15/19 07/26/23 History hydroxyzine HCl 25 mg tablet 25 mg PO HS PRN SLEEP/ANXIETY 02/06/20 07/26/23 History albuterol sulfate 90 mcg/actuation 2 inh inhalation Q6H PRN shortness 05/29/21 07/26/23 Rx aerosol inhaler (Ventolin HFA) of breath or wheezing #6.7 grams montelukast 10 mg tablet 10 mg PO DAILY 06/25/21 07/26/23 History azelastine 137 mcg (0.1 %) nasal 1 spray intranasal BID 07/26/23 07/26/23 History spray aerosol escitalopram oxalate 10 mg tablet 10 mg PO QAM 07/26/23 07/26/23 History hydroxyzine HCl 10 mg tablet 10 mg PO DAILY PRN Anxiety 07/26/23 07/26/23 History paliperidone palm (3 month) 410 0 mg IM .[id number] 07/26/23 07/26/23 History mg/1.32 mL intramuscular syringe (Invega Trinza) propranolol 10 mg tablet 10 mg PO DAILY PRN Anxiety 07/26/23 07/26/23 History riboflavin (vitamin B2) 400 mg 400 mg PO DAILY 07/26/23 07/26/23 History tablet trazodone 150 mg tablet 150 mg PO HS 07/26/23 07/26/23 History Allergies Allergy/AdvReac Type Severity Reaction Status Date / Time [place] And Derivatives Allergy Severe Hives Verified 07/26/23 23:20 aspirin Allergy Intermediate Hives/Rash Verified 07/26/23 23:20 lactose Allergy Intermediate Gastrointestinal Verified 07/26/23 23:20 Upset bee venom protein (honey bee) Allergy Unknown ON Verified 07/26/23 23:20 [facility] MED LIST Past Med/Surg History Medical History Marijuana abuse Hyperinsulinemia Bipolar II disorder Hypothyroidism Anxiety Surgical History No pertinent past surgical history Family History Mother Diabetes Social History Smoking Status: Current every day smoker Tobacco Type: Cigarettes Cigarettes Per Day: 20; Hx Alcohol Use: No Hx Substance Use: No Preferred Language: Libyan Communication Ability: Effective Sparmaker Required: No Beliefs That Will Affect Care: None Current Living Situation: Parent Current Living Situation Comment: lives with mom Feels Safe at Home: No Is there a partner from a previous relationship who is making you feel unsafe now?: No Gender Identity: Female Assistive Devices: None Review of Systems A total of 10 systems reviewed and were otherwise negative Physical Exam Vital Signs Vital Signs - 24 hr 07/26/23 20:30 07/26/23 23:10 Temperature 36.4 C L 36.7 C Temperature Source Oral Temporal Artery Scan Pulse Rate 123 H Pulse Rate [Right Finger] 106 H Respiratory Rate 16 20 Respiratory Effort / Characteristics Non-Labored Spontaneous Non-Labored Respiratory Depth Normal Normal Respiratory Pattern Regular Blood Pressure 159/114 H Blood Pressure [Left Arm] 133/92 Blood Pressure Mean 129 Blood Pressure Mean [Left Arm] 105 Blood Pressure Position Sitting Blood Pressure Position [Left Arm] Lying Pulse Oximetry 96 97 Oxygen Delivery Method Room Air Room Air Sepsis Recent Fever Within 48 Hours No Sepsis New/Unexplained Change in Mental Status N/A Sepsis Action Taken by Nursing No Action Required General: Well developed well nourished young female who appears in no acute distress, breathing comfortably on room air. Normal speech HEENT: Normal cephalic atraumatic. Pupils are equal round and reactive to light. Extraocular movements are intact. Oropharynx is pink with moist mucous membranes. No swelling of the mouth lips or tongue. Neck: Supple with a midline trachea. No meningeal signs or stiffness, no JVD or bruits. No Stridor. Chest: Clear to auscultation bilaterally. No wheezes or rhonchi. No increased work of breathing. Heart: Regular rate and rhythm without murmurs or gallops. Abdomen: Soft nontender, nondistended without rebound guarding or rigidity. Extremities: No cyanosis clubbing or edema. No calf tenderness or assymetry Spine/Back. Non tender to palpation. No CVA tenderness Skin: Good turgor without rashes. Neurologic exam: Cranial nerves two through 12 are intact. Motor and sensation are intact and symmetrical throughout. Psych: She admits to having thoughts of cutting her arm Course Administered Medications Discontinued Medications Lorazepam (Lorazepam 1 Mg Tab) 1 mg SL NOW STA Stop: 07/26/23 22:10 Last Admin: 07/26/23 22:16 Dose: 1 mg Documented By: CRISTIAN Medical Decision Making Differential Diagnosis Depression, anxiety, electrolyte or metabolic abnormality, toxicologic, metabolic Medical Records Attestation: I reviewed the patient's medical records. Home Medications Current Medication List: was personally reviewed by me Laboratory Data Attestation: I reviewed the patient's lab results. 07/26/23 20:45 07/26/23 20:45 Lab Results 07/26/23 07/26/23 07/26/23 Range/Units 20:34 20:43 20:45 WBC 12.67 H (4.8-10.8) K/ul RBC 4.78 (4.20-5.40) M/uL Hgb 13.5 (12.0-16.0) g/dl Hct 39.8 (37.0-47.0) % MCV 83.3 (80.0-100.0) fL MCH 28.2 (25.0-34.0) pg MCHC 33.9 (32.0-36.0) g/dL RDW Std Deviation 38.7 (36.4-46.3) fL RDW Coeff of Reynold 12.9 (11.5-14.5) % Plt Count 341 (130-400) K/uL MPV 9.4 (9.4-12.4) fL Immature Gran % (Auto) 1.4 % Neut % (Auto) 67.6 % Lymph % (Auto) 25.3 % [place] % (Auto) 3.2 % Eos % (Auto) 2.2 % Baso % (Auto) 0.3 % Neut # (Auto) 8.56 H (1.40-6.50) K/uL Lymph # (Auto) 3.21 (1.20-3.40) K/uL [place] # (Auto) 0.40 (0.11-0.59) K/uL Eos # (Auto) 0.28 (0.00-0.50) K/uL Baso # (Auto) 0.04 (0.00-0.20) K/uL Immature Gran # (Auto) 0.18 (0.01-0.20) K/uL Sodium 136 (136-145) mmol/L Potassium 3.8 (3.5-5.1) mmol/L Chloride 102 (98-107) mmol/L Carbon Dioxide 22 (21-32) mmol/L Anion Gap 12 H (3-11) BUN 11 (6-23) mg/dl Creatinine 0.79 (0.6-1.2) mg/dl Est Cr Clr Drug Dosing 171.9 ml/min Est GFR ( Amer) 116.4 ml/min Est GFR (Non-Af Amer) 100.5 ml/min BUN/Creatinine Ratio 13.9 (10-20) Glucose 123 H (70-99(Fasting)) mg/dl Calcium 9.4 (8.6-10.3) mg/dl Total Bilirubin 0.2 (0.2-1.0) mg/dl AST 25 (13-39) U/L ALT 29 (7-52) U/L Alkaline Phosphatase 92 (34-104) U/L Total Protein 7.8 (6.0-8.3) gm/dl Albumin 4.1 (3.4-5.0) gm/dl Globulin 3.7 (2.5-4.0) gm/dl Albumin/Globulin Ratio 1.1 (0.9-2) TSH 2.181 (0.300-4.500) uIu/ml Urine Color Yellow Urine Appearance Clear (Clear) Urine pH 7.0 (4.5-7.5) Ur Specific [place] 1.019 (1.000-1.030) Urine Protein Negative (Negative) Urine Glucose (UA) Negative (Negative) Urine Ketones Negative (Negative) Urine Blood Negative (Negative) Urine Nitrite Negative (Negative) Urine Bilirubin Negative (Negative) Urine Urobilinogen Negative (Negative) Ur Leukocyte Esterase Negative (Negative) Urine Test Negative (Negative) Salicylates < 3.0 L (3.0-30) mg/dl Urine Opiates Screen Neg (Neg) Ur Methadone, Qual Neg (Neg) Acetaminophen < 3 L (10-30) ug/ml Urine Barbiturates Neg (Neg) Ur Phencyclidine (PCP) Neg (Neg) U Amphetamin/Meth Scrn Neg (Neg) MDMA (Ecstasy) Screen Pos H (Neg) U Benzodiazepines Scrn Neg (Neg) Ur Cocaine Metabolite Neg (Neg) U Marijuana (THC) Screen Pos H (Neg) Ethyl Alcohol mg/dL < 10.0 (<10.0) mg/dl SARS-CoV-2, RNA, NAAT NEGATIVE (NEGATIVE) MDM Narrative This patient comes in described above. She has had thoughts of cutting herself. She was evaluated Psyche our psychiatric case management team. Blood work and urine was obtained for medical clearance she does not suggest acute toxicologic or metabolic or infectious etiology explaining her symptoms. She was medically cleared and further evaluated from mental health standpoint she is given Ativan 1 mg sublingual as she was feeling anxious. She has remained stable and we have consulted 3 S. and they will plan on admitting the patient for further inpatient treatment and evaluation for her depression and suicidal ideations and anxiety. Impression & Plan Suicidal ideation, Anxiety, Bipolar II disorder, Not currently Discharge Plan Visit Data Chief Complaint: Mental Health Evaluation ED Provider: Gerry Steve Discharge Problem: Suicidal ideation, Anxiety, Bipolar II disorder, Not currently Forms Stand Alone Forms: [facility] [employer], Suicide Prevention Resources Prescriptions Prescriptions: No Action metformin 500 mg Tablet 500 mg PO BID levothyroxine 50 mcg Tablet 50 mcg PO QAM hydroxyzine HCl 25 mg tablet 25 mg PO HS PRN (Reason: SLEEP/ANXIETY) montelukast 10 mg tablet 10 mg PO DAILY albuterol sulfate [Ventolin HFA] 90 mcg/actuation HFA aerosol inhaler 2 inh inhalation Q6H PRN (Reason: shortness of breath or wheezing) Qty: 6.7 0RF propranolol 10 mg tablet 10 mg PO DAILY PRN (Reason: Anxiety) trazodone 150 mg tablet 150 mg PO HS hydroxyzine HCl 10 mg tablet 10 mg PO DAILY PRN (Reason: Anxiety) Invega Trinza 410 mg/1.32 mL syringe 0 mg IM .[id number] azelastine 137 mcg (0.1 %) aerosol,spray 1 spray INTRANASAL BID escitalopram oxalate 10 mg tablet 10 mg PO QAM riboflavin (vitamin B2) 400 mg Tablet 400 mg PO DAILY Referrals Referrals: Sussy Gallagher DO [Primary Care Provider] -
[2023-07-27] MEDS ORDERED: hydrOXYzine HCl 25 MG TAB PO PRN (02:13)
[2023-07-27] MEDS ORDERED: SODIUM CHLORIDE 0.65% NA SOLN 45 ML (OCEAN) PRN (02:13)
[2023-07-27] MEDS ORDERED: ALUMINUM/MAGNESIUM SUSP 30 ML UDC PO PRN (02:13)
[2023-07-27] MEDS ORDERED: MAGNESIUM HYDROXIDE SUSP 30 ML UDC PO PRN (02:13)
[2023-07-27] MEDS ORDERED: PROPRANOLOL HCL 10 MG TAB PO PRN (02:19)
[2023-07-27] MEDS ORDERED: ALBUTEROL HFA 8 GM INHALER INH PRN (03:16)
[2023-07-27] MEDS: ALBUTEROL HFA 8 GM INHALER INH ONE (04:08)
[2023-07-27 06:59] VITALS: RESP 18
[2023-07-27] MEDS: LEVOTHYROXINE SODIUM 50 MCG TABLET PO SCH (08:56)
[2023-07-27] MEDS: ESCITALOPRAM OXALATE 10 MG TAB PO SCH (08:56)
[2023-07-27] MEDS: MONTELUKAST SODIUM 10 MG TABLET PO SCH (08:57)
[2023-07-27] MEDS: metFORMIN HCL 500 MG TAB PO SCH (08:57)
[2023-07-27] MEDS: AZELASTINE HCL 0.1% NASAL 200 SPRAYS/27,400 MCG BTL SCH (09:14)
[2023-07-27] MEDS ORDERED: ESCITALOPRAM OXALATE 10 MG TAB PO SCH (10:45)
[2023-07-27] MEDS: FLUoxetine HCL 20 MG CAP PO SCH (11:16)
[2023-07-27] MEDS: NICOTINE 21 MG/24 HR TDSY TD SCH (13:08)
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
[2023-07-27] MEDS: ACETAMINOPHEN 325 MG TAB PO PRN (17:29)
[2023-07-27] MEDS: carBAMazepine 200 MG TABLET PO SCH (20:35)
[2023-07-27] MEDS: busPIRone 5 MG TAB PO SCH (20:35)
[2023-07-27] MEDS: hydrOXYzine HCl 25 MG TAB PO PRN (20:36)
[2023-07-28] MEDS: ESCITALOPRAM OXALATE 10 MG TAB PO SCH (09:31)
[2023-07-28] MEDS: carBAMazepine 100 MG CHEW TAB PO SCH (09:31)
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
[2023-07-28] MEDS: traZODone HCL 50 MG TAB PO PRN (21:06)
[2023-07-29 06:31] VITALS: BP 151/88; TEMP 97.7
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
[2023-07-30 11:58] VITALS: PULSE 122
[2023-07-30] MEDS ORDERED: DESTROY THIS MEDICATION ONE (12:07)
[2023-07-30 12:42] LABS: MDA negative; MDEA negative; MDMA (Ecstasy) Urine, Confirm negative; Marijuana Quant, GCMS Urine 50 ng/mL (<5)
== END 2023-07-30 12:46 | disposition home or self-care (01) | DRG 885 ==
LOC: ED 20:23 → 3S 07-27 00:39